=== PATIENT | female | born 2000 | race Caucasian/White ===

== ENCOUNTER 2020-10-06 16:28 | Outpatient (REF) | payer OTHER, MEDICAID, SELFPAY | END 2020-10-06 16:29 | disposition home or self-care (01) | LOC: HO.LAB 16:28 | PROVIDERS: Visit Provider Internal Medicine | DX: Z20.828 Contact with and (suspected) exposure to other viral communicable diseases (principal) | CPT/HCPCS: C9803; U0003 ==

== ENCOUNTER 2023-08-13 10:39 | Emergency (ER) | payer MEDICAID, SELFPAY ==
[2023-08-13 11:02] VITALS: BP 147/74; PULSE 76; RESP 18; TEMP 36.3; O2SAT 99; BMI 33.0
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
[2023-08-13] MEDS: Diphth,Pertus(ACell),Tet Adult 0.5 ML SYRINGE IM (11:19)
== END 2023-08-13 11:39 | disposition home or self-care (01) ==
PROVIDERS: Emergency Provider Emergency Medicine
DX: S40.812A Abrasion of left upper arm, initial encounter (principal); T22.20XA Burn of second degree of shoulder and upper limb, except wrist and hand, unspecified site, initial encounter; T31.0 Burns involving less than 10% of body surface; X15.2XXA Contact with hotplate, initial encounter; Y93.9 Activity, unspecified; Y92.9 Unspecified place or not applicable; Y99.9 Unspecified external cause status; Z23 Encounter for immunization
CPT/HCPCS: 16025; 90471; 90715; 99282; 99284

== ENCOUNTER 2023-11-19 09:20 | Emergency (ER) | payer MEDICAID, SELFPAY ==
[2023-11-19 09:24] VITALS: BP 141/91; PULSE 92; RESP 20; TEMP 36.6; O2SAT 98; BMI 31.0
--- NOTE | 2023-11-19 11:15 | ED_ITS ---
HPI - General Adult General Chief complaint: Upper Respiratory Symptoms Stated complaint: Asthma Time Seen by Provider: 11/19/23 11:19 Source: patient Mode of arrival: ambulatory Limitations: no limitations History of Present Illness HPI narrative: Patient is a 22 year old assigned female at with a history of asthma presenting to the emergency department today with increased wheezing. Patient states that over the last few days she has had increased wheezing / asthma issues. Patient denies any dizziness, lightheadedness, abdominal pain, nausea, vomiting, fever, chills, blurry vision, double vision, loss of vision, chest pain, back pain, night sweats, pain with urination, increased urinary frequency, increased urinary urgency, blood in her urine or stool, syncope or a near syncopal episode, recent trauma or falls, bowel incontinence, bladder incontinence, bowel retention, bladder retention, or any other complaints at this time. Onset (ago): day(s) Severity: mild Severity scale (1-10): 3 Relieving factors: none Exacerbating factors: none Related Data Previous Rx's Medication Instructions Recorded bacitracin 500 unit/gram topical 1 appl topical TID 2 weeks #30 08/13/23 ointment grams prednisone 20 mg tablet 20 mg PO DAILY 12 days #26 tabs 11/19/23 Allergies Allergy/AdvReac Type Severity Reaction Status Date / Time adhesive tape Allergy Rash Verified 11/19/23 09:23 bupropion [From Contrave] Allergy Anaphylaxis Verified 11/19/23 09:23 naltrexone [From Contrave] Allergy Anaphylaxis Verified 11/19/23 09:23 shellfish derived Allergy Anaphylaxis Verified 11/19/23 09:23 Review of Systems Constitutional: Constitutional: Reports no additional constitutional compl aints, Denies chills, Denies fever(s) and Denies night sweats Eyes: Eyes: Reports no additional eye complaints, Denies blurry vision, Denies change in vision, Denies diplopia, Denies eye discharge, Denies loss of vision and Denies eye pain ENT: Denies dizziness Cardiovascular: Cardiovascular: Reports no additional cardiovascular complaints, Denies chest pain, Denies lightheadedness, Denies Loss of Consciousness and Denies dyspnea Respiratory: Respiratory: Reports no additional respiratory complaints, Denies dyspnea and Reports wheezing Gastrointestinal: Gastrointestinal: Reports no additional gastrointestinal complaints, Denies abdominal pain, Denies melena, Denies hematochezia, Denies change in bowel habits and Denies change in stool character Genitourinary: Genitourinary: Denies hematuria, Denies urinary frequency, Denies dysuria, Denies urinary incontinence, Denies urinary hesitancy and Denies urinary urgency Musculoskeletal: Musculoskeletal: Reports no additional musculoskeletal complaints, Denies numbness and Denies tingling Neurologic: Denies dizziness, Denies loss of vision, Denies numbness and Denies tingling Psychiatric: Psychiatric: Reports no additional psychiatric complaints Endocrine: Endocrine: Reports no additional endocrine complaints Hematologic/Lymphatic: Hematologic/Lymphatic: Reports no additional hematologic/lymphatic complaints Allergic/Immunologic: Allergic/Immunologic: Reports no additional allergic/immunologic complaints and Reports wheezing PMFSH Past Medical History Attestation statement: The following information was validated with the patient. Source: old records reviewed and nursing notes reviewed Onset Date is defined in the Problem List Problems that require an onset date and time if occurred within 24 hrs of arrival to the ED Aortic Dissection and Rupture; Neurologic impairment; Cardiopulmonary Arrest; Endotracheal Intubation; Insertion or Replacement of Mechanical Circulatory Assist Device Social History Social History Advance Directives: No Physical Exam ED Vital Signs: Vital Signs - 24 hr 11/19/23 09:24 Temperature 98 F Pulse Rate 92 Respiratory Rate 20 Blood Pressure 141/91 H Pulse Oximetry 98 BMI result Body Mass Index 31.0 Const General: cooperative, no acute distress, alert and awake Nutritional Appearance: well nourished Orientation/consciousness: patient oriented x3 Limitations: no limitations [facility] Head: Yes normal to inspection and Yes atraumatic Ears: hearing grossly normal bilaterally and external ears normal General nose exam: Normal external nose present, no nasal discharge noted and no epistaxis Face and sinus: Yes normal facial exam, No abrasion and No laceration Mouth: Normal oral and palatal mucosa present, no drooling and no muffled voice Eyes General: appearance normal, both eyes and all related structures Periorbital: periorbital findings normal Eyelids: Yes eyelids normal Conjunctivae: conjunctivae normal Pupils: Equal, round and reactive pupils present EOM: EOMs intact bilaterally Neck Neck: Yes normal visual inspection, Yes full ROM and Yes no lymphadenopathy Chest Chest palpation & inspection: normal inspection of the chest Resp Effort & Inspection: normal respiratory effort and able to speak in complete sentences Auscultation: wheezes scattered wheezes GI Inspection: Yes normal to inspection Neuro General: patient oriented x3 and moves all extremities Cranial nerves: Yes Equal, round and reactive pupils present Cognition (Neuro): normal cognition Motor exam (neuro): 5/5 motor strength present throughout Sensory Exam: Normal double simultaneous stimulation for sensation Coordination: [id number] test normal Extrem General: Yes normal to inspection, Yes full ROM and Yes capillary refill normal Psych Appearance: grossly normal Mental Status: mental status grossly normal Affect: normal affect Attitude: cooperative Thought process: Normal thought process present Thought content: Normal thought content present Insight: Good insight present (Psych) Medical Decision Making Medical Decision Making [facility] Narrative: Patient is a 22 year old assigned female at with a history of asthma presenting to the emergency department today with increased wheezing. Patient's physical exam was as noted in the physical exam portion of this note. I explained my physical exam findings to the patient. I answered all questions asked by the patient. I stressed the importance of the patient taking her medication as prescribed. I stressed the importance of the patient following up with her primary care provider. I stressed the importance of the patient returning to the emergency department immediately if her symptoms were to worsen or if she were to develop any dizziness, shortness of breath, difficulty breathing, chest pain, blurry vision, loss of vision, nausea, vomiting, abdominal pain, fever, chills, back pain, or any other complaints. Patient verbalized agreement and understanding with this treatment plan and discharge. Differential Diagnosis Differential Diagnoses: The differential diagnosis associated with the presentation includes Asthma exacerbation Asthma Wheezing Admission/Observation Consideration of admission/observation: Escalation of care including admission/observation considered Patient would have been admitted to the hospital had her clinical presentation warranted hospital admission. Discharge Plan Discharge Clinical Impression: Asthma Patient Disposition: Home, Self-Care Instructions: Asthma (DC) Additional Instructions: Follow up with your primary care provider. Return to the emergency department immediately if your symptoms worsen or if you develop any dizziness, shortness of breath, difficulty breathing, chest pain, blurry vision, loss of vision, nausea, vomiting, abdominal pain, fever, chills, back pain, or any other complaints. Prescriptions: New prednisone 20 mg tablet 20 mg PO DAILY 12 Days Qty: 26 0RF Rx Instructions: Take 3 tablets for 5 days THEN; Take 2 tablets for 4 days THEN; Take 1 tablet for 3 days No Action bacitracin 500 unit/gram ointment 1 appl topical TID 14 Days Qty: 30 0RF Referrals: [facility] [place] Family Medicine [Provider Group] (Call to establish and follow up with a primary care provider. If you already have a primary care provider, please follow up with them.) [facility] [Provider Group] (Call to establish and follow up with a primary care provider. If you already have a primary care provider, please follow up with them.) [facility] [place] Primary [facility] [Provider Group] (Call to establish and follow up with a primary care provider. If you already have a primary care provider, please follow up with them.) Stand Alone Forms: Work/School Release Interventions: ED Discharge Assessment Last Done: 11/19/23 11:23 Discharge Date/Time: 11/19/23 11:24 Print Language: Greenlandic
== END 2023-11-19 11:24 | disposition home or self-care (01) ==
PROVIDERS: Emergency Provider Emergency Medicine
DX: J45.909 Unspecified asthma, uncomplicated (principal)
CPT/HCPCS: 99282; 99283

== ENCOUNTER 2024-10-03 16:02 | Outpatient (REF) | payer MEDICAID, SELFPAY ==
[2024-10-03 17:48] LABS: MANUAL DIFF FLAG NO
[2024-10-03 17:53] LABS: Basophils Absolute Auto 0.1 X10*3/uL (0.0-0.2); Basophils Percent Auto 0.5 % (0-2); Eosinophils Absolute Auto 0.4 X10*3/uL (0.0-0.4); Eosinophils Percent Auto 3.9 % (0-4); Hematocrit 40.8 % (37.0-47.0); Hemoglobin 13.3 g/dl (12.0-16.0); Imm Gran Abs Auto 0.03 X10*3/uL (0.00-0.03); Imm Gran Pct Auto 0.3 % (0.0-0.4); Lymphocytes Absolute Auto 3.3 X10*3/uL (1.2-4.9); Mean Corpuscular HGB Conc 32.6 g/dl (31.0-35.0); Mean Corpuscular Hemoglobin 29.4 pg (27.0-33.0); Mean Corpuscular Volume 90.3 fL (80.0-98.0); Mean Platelet Volume 9.7 fL (9.4-12.3); Monocytes Absolute Auto 0.5 X10*3/uL (0.1-1.2); Monocytes Percent Auto 5.1 % (2-11); Neutrophils Absolute Auto 5.4 x10*3/uL (2.0-8.3); Neutrophils Percent Auto 56.2 % (45-73); Platelet Count 346 X10*3/uL (160-400); Red Blood Count 4.52 X10*6/uL (4.20-5.50); White Blood Count 9.7 X10*3/uL (4.8-10.8)
[2024-10-03 18:19] LABS: Alanine Aminotransferase 14 U/L (0-31); Albumin Level 4.4 g/dL (3.5-5.0); Alkaline Phosphatase 70 U/L (39-117); Anion Gap 11 (12-20); Aspartate Amino Transferase 18 U/L (5-31); Bilirubin Total 1.2 mg/dL (0.0-1.0); Blood Urea Nitrogen 8 mg/dL (9-16); Calcium 9.8 mg/dL (8.4-10.2); Carbon Dioxide 27 mmol/L (22-29); Chloride 107 mmol/L (96-108); Estimated Glomerular Filt Rate > 60; Glucose Random 84 mg/dL (60-115); Potassium 4.4 mmol/L (3.3-5.1); Sodium 141 mmol/L (135-145); Total Protein 7.8 g/dL (6.5-8.0)
[2024-10-03 18:25] LABS: TSH reflex Free T4 0.98 uIU/mL (0.32-4.0)
[2024-10-04 07:35] LABS: Estimated Average Glucose 105 mg/dL; Hemoglobin A1C 117.7604 umol/L; Hemoglobin A1c % 5.3 % (<6.0); Total Hemoglobin (HGBA1C) 3385.7884 umol/L
== END 2024-10-03 16:03 | disposition home or self-care (01) ==
LOC: HO.HHCL 16:02
PROVIDERS: Visit Provider Nurse Practitioner Family
DX: Z00.00 Encounter for general adult medical examination without abnormal findings (principal); R53.83 Other fatigue
CPT/HCPCS: 36415; 80053; 83036; 84443; 85025

== ENCOUNTER 2024-11-21 18:40 | Emergency (ER) | payer MEDICAID, SELFPAY ==
--- NOTE | ~2024-11-21 | XR_ITS ---
CLINICAL HISTORY: fall onto pavement, tenderness 4 view right knee Comparison: None Findings: Bones intact. No dislocations. No significant arthritic change or erosions. No joint effusion. No radiopaque foreign body. IMPRESSION: 1. No acute findings. This document has been electronically signed by: Vick Daugherty MD on 11/21/2024 20:08:29
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
[2024-11-21 19:29] VITALS: BP 132/85; PULSE 66; RESP 16; TEMP 36.3; O2SAT 98; BMI 29.2
[2024-11-21 20:22] VITALS: BP 132/85; PULSE 66; RESP 16; TEMP 36.3; O2SAT 98
== END 2024-11-21 20:23 | disposition home or self-care (01) ==
PROVIDERS: Emergency Provider Emergency Medicine Emergency Medical Services; PCP Nurse Practitioner Family
DX: S80.01XA Contusion of right knee, initial encounter (principal); M25.561 Pain in right knee; W00.0XXA Fall on same level due to ice and snow, initial encounter; Y93.89 Activity, other specified; Y92.89 Other specified places as the place of occurrence of the external cause; Y99.8 Other external cause status
CPT/HCPCS: 73564; 99282; 99283

== ENCOUNTER → 2024-11-21 19:29 | Outpatient (BNV) | payer MEDICAID, SELFPAY | PROVIDERS: Emergency Provider Emergency Medicine Emergency Medical Services; PCP Nurse Practitioner Family; Visit Provider Radiology Diagnostic Radiology | DX: M25.561 Pain in right knee (principal) | CPT/HCPCS: 73564 ==

== ENCOUNTER 2024-12-26 07:37 | Outpatient (REF) | payer MEDICAID, SELFPAY ==
--- OUTSIDE RECORDS SUMMARY | 2024-12-27 07:40 | XMS_ITS | Encounter Summary ---
Author Organization [employer] Address [address] [facility] 7 [place] [address] Care Team Providers Care Graphics Production Specialist Name Role Phone Nimisha Harley PANFILO Primary Care Provider [phone] Reason for Visit * Reason Onset Date Comments January recall 12/04/2024 Encounter Details Date Type Department Care Team ([facility] st Contact Info) Description 12/04/2024 Telephone [facility] [address] [place] [address] Renato Webster [place] January recall Social History Tobacco Use Types Packs/Day Years Used Date Smoking Tobacco: Former Cigarettes Q uit: 11/26/2017 Passive Smoke Exposure: Past Smokeless Tobacco: Never Alcohol Use Standard Drinks/Week Comments Yes 0 (1 standard drink = 0.6 oz pur e alcohol) socially Housing Stability Answer Date Recorded What is your housing situation today? I have david phan 10/03/[address] you li ve. Do you have problems with any of the following? None of the above 10/03/2024 Food Insecurity Answer Date Recorded Within the past 12 months, y ou worried that your food would run out before you got money to buy more: Never True 10/03/2024 Within the past 12 months,th e food you bought just didn't last and you didn't have enough money to get more: Never True 03/2024 Transportation Answer Date Recorded In the past 12 months, has l ack of transportation kept you from medical appts, meetings, work or from getting things needed for daily living? No 10/03/2024 Utilities Answer Date Recorded In the past 12 months, has t he electric, gas, oil or water company threatened to shut off services in your home? No 10/03/2024 Internet Access Answer Date Recorded Internet Access Q1 Yes 10/03/2024 Internet Access Q2 Not on file 10/03/2024 Comments Unknown Sex and Gender Information Value Date Recorded Sex Assigned at Female 12/13/2023 9:54 AM EST Legal Sex Female 9:43 AM EST Gender Identity Female 12/13/2023 9:54 AM EST Sexual Orientation Straight 12/13/2023 9: 54 AM EST documented as of this encounter Miscellaneous Notes * Telephone Encounter - Renato Webster [place] - 12/04/2024 2:42 PM EST T/C to pt to schedule a recall f/u nasal symptoms. PT agreed to come in on 02/03/25 at 1:45pm. documented in this encounter Plan of Treatment Upcoming Encounters Date Type Department Care Team (Late st Contact Info) Description 02/03/2025 1:45 PM EDT Office Visit [facility] [address] [place] [address] Nimisha Harley NP [address] [place] [address] documented as of this encounter Visit Diagnoses Not on filedocumented in this encounter Care Teams Graphics Production Specialist Relationship Specialty Start Date End Date Nimisha Harley NP [address] [place] [address] PCP - General Family Medicine 11/03/24 documented as of this encounter
--- OUTSIDE RECORDS SUMMARY | 2024-12-27 07:40 | XMS_ITS | Referral Summary ---
Author Organization [facility] Address [address] [place] [address] Care Team Providers Care Manager Salt Name Role Phone Jyoti Gaspar Primary Care Provider Unavailabl e Allergies Active Allergy Reactions Criticality Noted Date Comments Shellfish Containing Products Rash 2021 Social History Tobacco Use Types Packs/Day Years Used Date Smoking Tobacco: Never Assessed Comments Unknown Sex and Gender Information Value Date Recorded Sex Assigned at Not on file Legal Sex Female 10:44 AM EDT Gender Identity Not on file Sexual Orientation Not on file Plan of Treatment Not on file Insurance [place] [employer] on file Care Teams Manager Salt Relationship Specialty Start Date End Date Jyoti Gaspar PCP - General Internal Medicine 07/31/22
--- OUTSIDE RECORDS SUMMARY | 2024-12-27 07:40 | XMS_ITS | Clinical Summary ---
Author Organization [facility] Address [address] [place] [address] Care Team Providers Care Mat Linker Name Role Phone Jyoti Gaspar Primary Care [...] Orientation Not on file Plan of Treatment Health Maintenance Due Date Last Done Comments HIV Screening 1998 Hepatitis C Screening 1998 Pap Smear 1998 Varicella Vaccines (1 of 2 - 13+ 2-dose series) 2011 HPV Vaccines (1 - 3-dose series) 2013 Chlamydia Screening 2014 Hepatitis B Vaccines (2 of 3 - 3-dose series) 08/15/2016 07/18/2016 Pneumococcal Vaccine: Pediat sadie (0-5 Years) and At-Risk Patients (6-50 Years) (1 of 2 - PCV) 2017 COVID-19 Vaccine (2023-2 5 season) 2024 11/01/2021, 03/21/2021, 02/22/2021 Influenza Vaccine (#1) 2024 8, 09/05/2018, 07/19/2017, Additional history exists Alcohol/Substance Use Screening 10/29/2024 Depression Screening and Follow-Up 10/29/2024 Social Drivers of Health [place] ual Screening 10/29/2024 DTaP,Tdap,and Td Vaccines (2 - Td or Tdap) 09/05/2028 09/05/2018 RSV Vaccine (60+ years old a nd patients) (1 - 1-dose 75+ series) 2073 Insurance [place] [employer] on file Care Teams Mat Linker Relationship Specialty Start Date End Date Jyoti Gaspar PCP - General Internal Medicine 07/31/22
--- OUTSIDE RECORDS SUMMARY | 2024-12-27 07:40 | XMS_ITS | Encounter Summary ---
Author Organization [facility] Address [address] [place] [id number] Phone Care Team Providers Care Marksmanship Instructor Name Role Phone Tangela Moreno MD Primary Care Provider Unavailabl e Encounter Details Date Type Department Care Team ([facility] Contact Info) Description 03/17/2018 Conversion Encounter [facility] [address] [address] Yeimi Lester MD [address] [place] [address] Social History Tobacco Use Types Packs/Day Years Used Date Smoking Tobacco: Never Assessed Comments Unknown Sex and Gender Information Value Date Recorded Sex Assigned at Not on file Legal Sex Female 6:10 PM EDT Gender Identity Not on file Sexual Orientation Not on file documented as of this encounter Plan of Treatment Not on file documented as of this encounter Visit Diagnoses Not on filedocumented in this encounter Care Teams Marksmanship Instructor Relationship Specialty Start Date End Date Tangela Moreno MD PCP - General 04/15/20 documented as of this encounter
--- OUTSIDE RECORDS SUMMARY | 2024-12-27 07:40 | XMS_ITS | Clinical Summary ---
Author Organization [employer] Address [address] [facility] 7[address] [place] [address] Care Team Providers Care Bulbs Farmworker Name Role Phone Nimisha Harley PANFILO Primary Care Provider [phone] Allergies Active Allergy Reactions Criticality Noted Date Comments Food 11/26/2019 shellfish Iodinated Contrast Media 12/13/2023 Shellfish Allergy Rash Low 08/15/2022 Medications Nexplanon 68 MG contraceptive implant Inject 68 mg under the skin. 3 Active albuterol (Ventolin HFA) 108 (90 Base) MCG/ACT inhaler Inhale. 0 Active budesonide-formot yang (Symbicort) 80-4.5 MCG/ACT inhalerIndication s:Moderate persistent asthma, unspecified whether complicated Inhale 1 puff in the morning and at bedtime. Rinse mouth with water after use to reduce aftertaste and incidence of candidiasis. Do not swallow. 1 each 1 4 Active Active Problems Problem Noted Date Diagnosed Date Dietary counseling 10/04/2024 Assessment & Plan (10/04/2024 1:15 PM EST): Encouraged minimizing processed foods and increasing whole foods particularly vegetables Exercise counseling 10/04/2024 Assessment & Plan (10/04/2024 1:15 PM EST): Encouraged daily movement, working up to 30 minutes daily Chronic nasal congestion 10/03/2024 Assessment & Plan (11/03/2024 5:58 PM EST): No response from abx course, Referral to ent and referral to allergy Initiate topical nasal steroid Assessment & Plan (10/04/2024 1:14 PM EST): Constant congestion this winter, will treat with abx x1 Return to clinic in 1 month Healthcare maintenance 10/03/2024 Assessment & Plan (10/04/2024 1:15 PM EST): Labs as ordered below Will schedule pap Anticipatory guidance reviewed Other fatigue 10/03/2024 Assessment & Plan (10/04/2024 1:14 PM EST): Goal to discuss cutting down monster beverages with therapist, Eat one meal per day Acute bacterial rhinosinusitis 10/03/2024 Assessment & Plan (10/04/2024 1:14 PM EST): Will treat Dental abscess 01/16/2024 Impacted teeth 01/16/2024 Dental caries into pulp 01/09/2024 Allergic rhinitis 12/13/2023 Asthma 12/13/2023 Assessment & Plan (10/04/2024 1:15 PM EST): Add pulmicort, monitor frequency of albuterol needed Follow up in 1 month Bipolar 1 disorder 12/13/2023 Class 1 obesity 12/13/2023 Hair loss 12/13/2023 History of gestational diabetes 12/13/2023 Hypermobility of joint 12/13/2023 PTSD (post-traumatic stress disorder) 12/13/2023 Encounters Date Type Department Care Team Description 12/04/2024 Telephone [facility] [address] [place] [address] Renato Webster [place] Lin recall 11/26/2024 6:00 PM EST Office Visit [facility] [address] [place] [address] Oliverio Johnson MD Right anterior knee pain (Primary Dx) 11/26/2024 Travel 11/26/2024 Telephone [facility] [address] [place] [address] Nimisha Harley NP Nurse Triage 11/21/2024 Orders Only [facility] External Provider, [facility] 11/03/2024 2:30 PM EST Office Visit [address] [address] Nimisha Harley NP Chronic nasal congestion (Primary Dx) 10/30/[address] [address] Shayy Aguiar [place] Chart Prep 10/27/2024 Travel 10/03/2024 2:45 PM EST Office Visit [address] [address] Nimisha Harley NP Healthcare maintenance (Primary Dx); Other fatigue; Chronic nasal congestion; Moderate persistent asthma, unspecified whether complicated; Acute bacterial rhinosinusitis; Dietary counseling; Exercise counseling 09/30/[address] [address] Shayy Aguiar [place] Chart Prep from Last 3 Months Immunizations Name Administration Dates Next Due HPV, Quadrivalent 11/08/2011,11/07/2010,09/07/20 10 Hep B, Adolescent or Pediatric 07/09/2015,2013,01/08/2004 Hib (PRP-T) 02/28/2000, 9,03/30/1999,02/01 IPV 01/08/2004, 0,03/30/1999,02/01 Influenza injectable quadriv alent IIV4 with preservative 07/19/2017,08/04/2015,07/26/2013,07/29,09/07/2010,10/08/2009 Influenza injectable quadriv alent preservative free 07/18/2016,07/25/2014 Influenza live intranasal qu adrivalent LIAV4 09/04/2008 Influenza, IIV3, injectable 11/06/2022,1 11/05/2017,07/19/2017,07/18 MMR 11/10/2018,01/06/2003,12/05/1999 Meningococcal MCV4P ACYW-135 04/09/2015,09/07/20 10 Rotavirus Pentavalent 03/30/1999,02/01/1999 Tdap 10/18/2022,09/05/2018,09/07/2010 Family History Medical History Relation Name Comments Diabetes Father Hypertension Father Breast cancer Maternal Grandmother Diabetes Mother Hypertension Mother Relation Name Status Comments Father Maternal Grandmother Mother Social History Tobacco Use Types Packs/Day Years Used Date Smoking Tobacco: Former Cigarettes Q uit: 11/26/2017 Passive Smoke Exposure: Past Smokeless Tobacco: Never Tobacco Cessation:Counseling Given: Not Answered Alcohol Use Standard Drinks/Week Comments Yes 0 [...] Orientation Straight 12/13/2023 9: 54 AM EST Last Filed Vital Signs Vital Sign Reading Time Taken Comments Blood Pressure 126/79 11/26/2024 5:34 PM EST Pulse 93 11/26/2024 5:34 PM EST Temperature 36.8 ??C (98.2 ??F) 11/26/2024 5:34 PM ES T Respiratory Rate 20 11/26/2024 5:34 PM EST Oxygen Saturation 99% 11/26/2024 5:34 PM EST Inhaled Oxygen Concentration - - Weight 77.6 kg (171 lb) 11/26/2024 5:34 PM EST Height 160 cm (5' 3 ) 11/26/2024 5:34 PM EST Body Mass Index 30.29 11/26/2024 5:34 PM EST Plan of Treatment Upcoming Encounters Date Type Department Care Team (Late st Contact Info) Description 02/03/2025 1:45 PM EDT Office Visit [facility] [address] [place] [address] Nimisha Harley, PANFILO [address] [place] [address] Health Maintenance Due Date Last Done Comments Dental Oral Exam 1998 Dental Prophylaxis 1998 Depression Screening 1998 HIV Screening 1998 Family Planning (PISQ) 2013 Hepatitis C Screening 2016 Pneumococcal Vaccine: Pediatrics (0 to 5 Years) and At-Risk Patients (6 to 49) Years) (1 of 2 - PCV) 2017 Pap Smear 2019 COVID-19 Vaccine ( season) 2024 11/01/2021, 03/21/2021, 02/22/2021 Influenza Vaccine (#1) 2024 , 09/05/2018, 09/05/2018, Additional history exists Dental X-Ray: Bitewings 12/14/2024 12/13/2023 Alcohol/Substance Use Screening 10/03/2025 10/03/2024 SDOH Screening 10/03/2025 10/03/2024 Tobacco Screening 11/26/2025 11/26/2024 Dental X-Ray: Full Mouth 01/16/2027 01/16/2024 DTaP/Tdap/Td Vaccines (10 - Td or Tdap) 08/13/2033 08/13/2023, 10/18/2022, 09/05/2018, Additional history exists Zoster Vaccines (1 of 2) 2048 RSV Patients and Patients Aged 60 years or older (1 - 1-dose 75+ series) 2073 Rotavirus Vaccines Aged Out 03/30/1999, 02/01/1999 No longer eligible based on patient's age to complete this topic HIB Vaccines Completed 02/28/2000, 11/1998, 03/30/1999, Additional history exists IPV Vaccines Completed 01/08/2004, 04/2000, 03/30/1999, Additional history exists HPV Vaccines Completed 11/08/2011, 10/29, 09/07/2010 Meningococcal Vaccine Completed 04/09/2015, 010 Hepatitis B Vaccines Completed 07/18/2016, 07/09/2015, 08/17/2014, Additional history exists Hepatitis A Vaccines Aged Out No long er eligible based on patient's age to complete this topic RSV under 20 months Aged Out No longe r eligible based on patient's age to complete this topic Procedures Procedure Name Priority Date/Time Associated Diagnosis Comments XR KNEE 4+ VIEWS RIGHT Routine 8:08 PM EST HEMOGLOBIN A1C Routine 10/03/2024 4:07 PM EST Healthcare maintenance COMPREHENSIVE METABOLIC PANEL Routine 10/03/2024 4:07 PM EST Healthcare maintenance TSH W/REFLEX TO FT4 Routine 10/03/2024 4 :07 PM EST Healthcare maintenance Other fatigue CBC WITH AUTO DIFFERENTIAL Routine 10/03/2024 4:07 PM EST Healthcare maintenance Other fatigue PANORAMIC RADIOGRAPHIC IMAGE Routine 01/16/2024 11:30 AM EDT BITEWING - SINGLE RADIOGRAPHIC IMAGE Routine 12/13/2023 9:45 AM EST Dental caries from Last 3 Months or Most Recently Relevant to Health Maintenance Results * XR Knee 4+ Views Right (11/21/2024 8:08 PM EST) Anatomical Region Laterality Modality Lower Extremities, Knee Right [facility] 11/21/2024 8:08 PM EST Narrative 11/21/2024 8:10 PM EST ? [facility] ?[address] ?[place] [address] ?XRay Report ? Signed ? Patient: Hopkins,Kacy ?MR#: [id number] ?? [id number] ? : 2000 ?Acct:[id number] ? Age/Sex: 23 / F ?ADM Date: 11/21/24 ? Loc: HO.ED ? Attending Dr: ? Ordering Physician: Alise Tariq NP ?? Date of Service: 11/21/24 ?? Procedure(s): XR knee RT 4V ?? Accession Number(s): [id number] ? cc: Nimisha Harley DIRECTOR LONG TERM CARE; Alise Tariq NP ? CLINICAL HISTORY: fall onto pavement, tenderness ? 4 view right knee ? Comparison: None ? Findings: ?? Bones intact. No dislocations. ?? No significant arthritic change or erosions. ?? No joint effusion. ?? No radiopaque foreign body. ? IMPRESSION: ?? 1. No acute findings. ? This document has been electronically signed by: Vick Daugherty MD on ?? 11/21/2024 20:08:29 ? Dictated By: ?Vick Daugherty MD ? Signed By: ?<Electronically signed by Vick Daugherty MD in OV> ?11/21/242008 ? DD/ 07 ? TD/TT: 11/21/242007 ? Software Testing Specialist: ? Procedure Note Lottie, Image - 11/21/2024 [place] [id number] XRay Report Signed Patient: Les Quarles#: [id number] : 2000Acct:[id number] Age/Sex: 23 / FADM Date: 11/21/24 Loc: HO.ED Attending Dr: Ordering Physician: Alise Tariq NP Date of Service: 11/21/24 Procedure(s): XR knee RT 4V Accession Number(s): [id number] cc: Nimisha Harley DIRECTOR LONG TERM CARE; Alise Tariq NP CLINICAL HISTORY: fall onto pavement, tenderness 4 view right knee Comparison: None Findings: Bones intact. No dislocations. No significant arthritic change or erosions. No joint effusion. No radiopaque foreign body. IMPRESSION: 1. No acute findings. This document has been electronically signed by: Vick Daugherty MD on 11/21/2024 20:08:29 Dictated By: Vick Daugherty MD Signed By: <Electronically signed by Vick Daugherty MD in OV> 11/21/242008 DD/ 07 TD/TT: 11/21/242007 Software Testing Specialist: us [facility] External Provider IMG XR PROCEDURES Edited Result - Final * TSH W/Reflex to FT4 (10/03/2024 4:07 PM EST) TSH reflex Free T4 0.98 0.32 - 4.0 uIU/mL [facility] Blood Venous blood specimen / Unknown 10/03/2024 4:07 PM EST 10/03/2024 5:39 PM EST Nimisha Harley DIRECTOR LONG TERM CARE LAB BLOOD ORDERABLES Final Resul t [facility] [address] [place] [phone] * CBC auto differential (10/03/2024 4:07 PM EST) White Blood Count 9.7 4.8 - 10.8 X10*3/uL [facility] Red Blood Count 4.52 4.20 - 5.50 X10*6/uL [facility] Hemoglobin 13.3 12.0 - 16.0 g/dl [facility] Hematocrit 40.8 37.0 - 47.0 % [facility] Mean Corpuscular Volume 90.3 80.0 - 98.0 fL [facility] Mean Corpuscular Hemoglobin 29.4 27.0 - 33.0 pg [facility] Mean Corpuscular HGB Conc 32.6 31.0 - 35.0 g/dl [facility] Red Cell Distribution Width 13.0 11.0 - 16.0 % [facility] Platelet Count 346 160 - 400 X10*3/uL [facility] Mean Platelet Volume 9.7 9.4 - 12.3 fL [facility] Neutrophils Percent Auto 56.2 45 - 73 % [facility] Imm Gran Pct Auto 0.3 0.0 - 0.4 % [facility] Lymphocytes Percent Auto 34.0 20 - 40 % [facility] Monocytes Percent Auto 5.1 2 - 11 % [facility] Eosinophils Percent Auto 3.9 0 - 4 % [facility] Basophils Percent Auto 0.5 0 - 2 % [facility] NRBC Pct Auto 0.0 0.0 - 0.2 /100WBC [facility] Neutrophils Absolute Auto 5.4 2.0 - 8.3 x10*3/uL [facility] Imm Gran Abs Auto 0.03 0.00 - 0.03 X10*3/uL [facility] Lymphocytes Absolute Auto 3.3 1.2 - 4.9 X10*3/uL [facility] Monocytes Absolute Auto 0.5 0.1 - 1.2 X10*3/uL [facility] Eosinophils Absolute Auto 0.4 0.0 - 0.4 X10*3/uL [facility] Basophils Absolute Auto 0.1 0.0 - 0.2 X10*3/uL [facility] NRBC Abs Auto 0.000 0.0 - 0.012 X10*3/uL [facility] Blood Venous blood specimen / Unknown 10/03/2024 4:07 PM EST 10/03/2024 5:39 PM EST Nimisha Harley NP LAB BLOOD ORDERABLES Final Resul t [facility] [address] [place] [address] [phone] * Hemoglobin A1c (10/03/2024 4:07 PM EST) Hemoglobin A1c 5.3 <6.0 % [facility] Comment:Hemoglobin A1C Refer ence Range Adults: 4.8 - 6.0 % Non diabetic: < 6.0 % Goal: < 7.0 %Additional Action Suggested: > 8.0 %Note: Hemoglobin A1c results are invalid for patients with abnormal amounts of HbF. Blood transfusions may impact the HbA1c concentration in the patient sample. Estimated Average Glucose 105 mg/dL [facility] Comment:eAG = Estimated ave rage glucose which is %A1C expressed asaverage glucose, using the formula of the C2S-WkidysfNwrytvi Glucose study (ADAG), Diabetes Care, Vol.31,#8,May. 2007 Blood Venous blood specimen / Unknown 10/03/2024 4:07 PM EST 10/03/2024 5:39 PM EST us Nimisha Harley NP LAB BLOOD ORDERABLES Final Resul t [facility] [address] [place] [address] [phone] * (ABNORMAL) Comprehensive Metabolic Panel (10/03/2024 4:07 PM EST) Sodium 141 135 - 145 mmol/L [facility] Potassium 4.4 3.3 - 5.1 mmol/L [facility] Chloride 107 96 - 108 mmol/L [facility] Carbon Dioxide 27 22 - 29 mmol/L [facility] Anion Gap 11(L) 12 - 20 [facility] Urea Nitrogen (BUN) 8(L) 9 - 16 mg/dL [facility] Creatinine, Serum 0.71 0.5 - 1.4 mg/dL [facility] Estimated Glomerular Filt Rate >60 [facility] Comment:Chronic Kidney Disea se: Estimated GFR < 60 mL/min/[id number] Kidney Disease: Estimated GFR < 15 mL/min/1.73m2 Glucose 84 60 - 115 mg/dL [facility] Calcium 9.8 8.4 - 10.2 mg/dL [facility] Bilirubin, Total 1.2(H) 0.0 - 1.0 mg/dL [facility] Aspartate Amino Transferase 18 5 - 31 U/L [facility] Alanine Aminotransferase 14 0 - 31 U/L [facility] Total Protein 7.8 6.5 - 8.0 g/dL [facility] Albumin Level 4.4 3.5 - 5.0 g/dL [facility] Alkaline Phosphatase 70 39 - 117 U/L [facility] Blood Venous blood specimen / Unknown 10/03/2024 4:07 PM EST 10/03/2024 5:39 PM EST us Nimisha Harley NP LAB BLOOD ORDERABLES Final Resul t [facility] [address] [place] [address] [phone] from Last 3 Months Insurance [facility] C3 DENTAL-[facility] MEDICAID STAND ADULT Care Teams Bulbs Farmworker Relationship Specialty Start Date End Date Nimisha Harley NP [address] [place] [address] PCP - General Family Medicine 11/03/24
== END 2024-12-26 07:38 | disposition home or self-care (01) ==
LOC: HO.HOSX 07:37
PROVIDERS: Visit Provider Physician Assistant
DX: Z13.89 Encounter for screening for other disorder (principal)

== ENCOUNTER 2025-01-13 19:11 | Emergency (ER) | payer MEDICAID, SELFPAY ==
--- NOTE | ~2025-01-13 | XR_ITS ---
CLINICAL HISTORY: pain 1 view chest x-ray Comparison: None Findings: No consolidation or effusion. Normal size heart. No acute fracture. IMPRESSION: 1. No acute findings. This document has been electronically signed by: Yael Mc MD on 01/13/2025 20:40:12
--- NOTE | 2025-01-13 19:18 | ECG_ITS ---
Test Reason : CP Blood Pressure : */* mmHG Vent. Rate : 66 BPM Atrial Rate : 66 BPM P-R Int : 132 ms QRS Dur : 72 ms QT Int : 400 ms P-R-T Axes : 38 45 44 degrees QTcB Int : 419 ms Normal sinus rhythm Cannot rule out Anterior infarct , age undetermined Abnormal ECG No previous ECGs available Referred By: Generic ED Physician Electronically Signed By: Martin Perez
[2025-01-13 19:39] VITALS: BP 115/67; PULSE 64; RESP 18; TEMP 36.7; O2SAT 100; BMI 29.2
--- NOTE | 2025-01-13 19:48 | ED.CHESTPAIN ---
HPI - Chest Pain General Chief Complaint: Chest Pain Stated Complaint: chest pain/body heavy Time Seen by Provider: 01/13/25 22:03 Source: patient Mode of arrival: ambulatory Limitations: no limitations History of Present Illness ED Provider: Dr. Bri Cobb HPI narrative: Patient comes to the emergency room complaining of chest pain with deep inspirations. Patient states that earlier today she had an episode where she was having some chest pain, numbness tingling throughout the whole body head to toe. At this time, patient states that she feels better, just feels some chest discomfort, but no pain or significant discomfort. Patient states that she does have asthma but has not had any asthma exacerbations Related Data Previous Rx's ?Medication ?Instructions ?Recorded bacitracin 500 unit/gram topical 1 appl topical TID 2 weeks #30 08/13/23 ointment grams prednisone 20 mg tablet 20 mg PO DAILY 12 days #26 tabs 11/19/23 Allergies Allergy/AdvReac Type Severity Reaction Status Date / Time adhesive tape Allergy Rash Verified 01/13/25 19:40 bupropion [From Contrave] Allergy Anaphylaxis Verified 01/13/25 19:40 naltrexone [From Contrave] Allergy Anaphylaxis Verified 01/13/25 19:40 shellfish derived Allergy Anaphylaxis Verified 01/13/25 19:40 Review of Systems Review of Systems: Constitutional : No Weight loss, No Fever, No Chills, No Night Sweats, No Fatigue, No Malaise ENT/Mouth : No Hearing loss, No Ear Pain, No Nasal Congestion, No Sinus Pain, No Hoarseness, No sore throat, No Rhinorrhea, No Swallowing Difficulty Eyes: No Eye Pain, No Swelling, No Redness, No Foreign Body, No Discharge, No Vision Changes Cardiovascular : chest pressure worse with inspiration, nearly resolved by now, no palpitations Respiratory : No Cough, No Sputum, No Wheezing, No Smoke Exposure, No Dyspnea Gastrointestinal : No Nausea, No Vomiting, No Diarrhea, No Constipation, No abdominal Pain, No Hematochezia, No Melena Genitourinary : no irregular bleeding, No Dysuria, No Urinary Frequency, No Hematuria, No Urinary Incontinence, No Urgency, No Flank Pain, No Urinary Flow Changes, No Hesitancy Musculoskeletal : No joint pain, No Myalgias, No Joint Swelling Skin : No Skin Lesions, No rash Neuro : No Weakness, No Numbness, complaining of 1 episode of whole body paresthesias, no tonic-clonic events, No Loss of Consciousness, No Dizziness, No Headache Psych : No Anxiety/Panic, No Depression, No SI/HI/AH/VH, No Social Issues, Heme/Lymph: No Bruising, No Bleeding,No Lymphadenopathy Endocrine : No Polyuria, No Polydipsia, No Temperature Intolerance [facility] Social History Social History Do you have a plan to hurt others: No Plan Physical Exam Vital Signs: Vital Signs: Last Vital Signs Temp 98.0 F 01/13/25 19:39 Pulse 64 01/13/25 19:39 Resp 18 01/13/25 19:39 BP 115/67 01/13/25 19:39 Pulse Ox 100 01/13/25 19:39 O2 Del Method Room Air 01/13/25 19:39 BMI result Body Mass Index 29.2 Const: Other: Appearance: Alert. Oriented X3. No acute distress. Eyes: Pupils equal, round and reactive to light. ENT: Pharynx normal. Neck: Normal inspection. Neck supple. No lymph nodes noted. No crepitus CVS: Normal heart rate and rhythm. Pulses normal. Normal S1 and S2 Respiratory: No respiratory distress. Breath sounds normal. No Wheezing. No rales Abdomen: Soft and nontender. No rigidity. No distention. Skin: Skin warm and dry. Normal skin color. Normal skin turgor. Extremities: No lower extremity edema. No Lacerations. No Rash Neuro: Oriented X 3. No motor deficit. No sensory deficit. Moving all extremities. No slurred speech. CN 2 through 12 grossly intact Psych: calm, cooperative, normal affect Course Course Course Narrative: This is a rapid medical exam performed by Mariposa Morgan PA-C. The patient is a 24-year-old female with a history of anxiety who presents with chest pain. Pain described as heaviness, the becomes severe at times. It has been intermittent since this evening. Denies recent cough cold symptoms, upper abdominal pain, nausea, vomiting. Denies new psychosocial stressors. We will be screening basic labs, trop, EKG and chest x-ray. The patient was stable and can return to the waiting room pending her full medical assessment. Medical Decision Making Medical Decision Making MDM Narrative: my interpretation of EKG: Normal sinus rhythm, heart rate 66, no ST segment depression or elevation, no T-wave inversion, QTC 419 my interpretation of labs: White blood cell count 12.4, chronic for the patient, normal hemoglobin and hematocrit, normal platelets, normal chemistry, normal troponin, negative hCG chest x-ray: No consolidation or effusion I discussed with the patient that she likely has pleurisy. At this time, patient has no significant pain or pressure, she is states that she feels different. Patient does have history of anxiety, it when she described episode of whole body numbness and tingling, patient likely had a panic attack. Differential Diagnosis Differential Diagnoses: The differential diagnosis associated with the presentation includes Lab Data MDM Lab Attestation statement: I reviewed the patient's lab results. 01/13/25 19:58 01/13/25 19:58 Labs: Lab Results 01/13/25 Range/Units 19:58 WBC 12.4 H (4.8-10.8) X10*3/uL RBC 4.28 (4.20-5.50) X10*6/uL Hgb 12.8 (12.0-16.0) g/dl Hct 39.2 (37.0-47.0) % MCV 91.6 (80.0-98.0) fL MCH 29.9 (27.0-33.0) pg MCHC 32.7 (31.0-35.0) g/dl RDW 12.9 (11.0-16.0) % Plt Count 354 (160-400) X10*3/uL MPV 9.4 (9.4-12.3) fL Immature Gran % (Auto) 0.2 (0.0-0.4) % Neut % (Auto) 48.8 (45-73) % Lymph % (Auto) 40.5 H (20-40) % [place] % (Auto) 4.8 (2-11) % Eos % (Auto) 5.3 H (0-4) % Baso % (Auto) 0.4 (0-2) % Lymph # (Auto) 5.0 H (1.2-4.9) X10*3/uL [place] # (Auto) 0.6 (0.1-1.2) X10*3/uL Eos # (Auto) 0.7 H (0.0-0.4) X10*3/uL Baso # (Auto) 0.1 (0.0-0.2) X10*3/uL Abs Immat Gran (auto) 0.03 (0.00-0.03) X10*3/uL Absolute Neuts (auto) 6.0 (2.0-8.3) x10*3/uL Absolute Nucleated RBC 0.000 (0.0-0.012) X10*3/uL Nucleated RBC % (auto) 0.0 (0.0-0.2) /100WBC Smear Tech's Comments VERIFIED Sodium 143 (135-145) mmol/L Potassium 4.6 (3.3-5.1) mmol/L Chloride 109 H (96-108) mmol/L Carbon Dioxide 27 (22-29) mmol/L Anion Gap 12 (12-20) BUN 9 (9-16) mg/dL Creatinine 0.78 (0.5-1.4) mg/dL Estim Creat Clear Calc 105.8 Estimated GFR > 60 Random Glucose 89 (60-115) mg/dL Calcium 9.6 (8.4-10.2) mg/dL Total Bilirubin 0.6 (0.0-1.0) mg/dL AST 16 (5-31) U/L ALT 16 (0-31) U/L Alkaline Phosphatase 73 (39-117) U/L Troponin I High Sens < 2.7 (<3.5-17.0) ng/L Total Protein 7.9 (6.5-8.0) g/dL Albumin 4.3 (3.5-5.0) g/dL Lipase 26 (8-78) U/L Beta HCG, Quant < 2 mIU/mL Independent Interpretation I performed an independent interpretation of an: Plain X-Ray Radiology Impression Discussion of test interpretation with radiology: I have reviewed the radiologist's reading. Radiologist Impression: No consolidation or effusion. Normal size heart. No acute fracture. IMPRESSION: 1. No acute findings Discharge Plan Discharge Clinical Impression: Pleurisy Patient Disposition: Home, Self-Care Instructions: Pleurisy (ED) Additional Instructions: Please follow-up with your primary care physician tomorrow. If you have any worsening or new symptoms, please return to the emergency room or call 911 Prescriptions: No Action bacitracin 500 unit/gram ointment 1 appl topical TID 14 Days Qty: 30 0RF prednisone 20 mg tablet 20 mg PO DAILY 12 Days Qty: 26 0RF Rx Instructions: Take 3 tablets for 5 days THEN; Take 2 tablets for 4 days THEN; Take 1 tablet for 3 days Print Language: Iraqi
[2025-01-13 20:04] LABS: Basophils Absolute Auto 0.1 X10*3/uL (0.0-0.2); Basophils Percent Auto 0.4 % (0-2); Eosinophils Absolute Auto 0.7 X10*3/uL (0.0-0.4); Eosinophils Percent Auto 5.3 % (0-4); Hematocrit 39.2 % (37.0-47.0); Hemoglobin 12.8 g/dl (12.0-16.0); Imm Gran Abs Auto 0.03 X10*3/uL (0.00-0.03); Imm Gran Pct Auto 0.2 % (0.0-0.4); Lymphocytes Percent Auto 40.5 % (20-40); MANUAL DIFF FLAG SCAN; Mean Corpuscular HGB Conc 32.7 g/dl (31.0-35.0); Mean Corpuscular Hemoglobin 29.9 pg (27.0-33.0); Mean Corpuscular Volume 91.6 fL (80.0-98.0); Mean Platelet Volume 9.4 fL (9.4-12.3); Monocytes Absolute Auto 0.6 X10*3/uL (0.1-1.2); Monocytes Percent Auto 4.8 % (2-11); Neutrophils Percent Auto 48.8 % (45-73); Platelet Count 354 X10*3/uL (160-400); Red Blood Count 4.28 X10*6/uL (4.20-5.50); Red Cell Distribution Width 12.9 % (11.0-16.0); SCAN SMEAR FLAG 1; White Blood Count 12.4 X10*3/uL (4.8-10.8)
[2025-01-13 20:23] LABS: Alanine Aminotransferase 16 U/L (0-31); Albumin Level 4.3 g/dL (3.5-5.0); Alkaline Phosphatase 73 U/L (39-117); Anion Gap 12 (12-20); Aspartate Amino Transferase 16 U/L (5-31); Bilirubin Total 0.6 mg/dL (0.0-1.0); Blood Urea Nitrogen 9 mg/dL (9-16); Calcium 9.6 mg/dL (8.4-10.2); Carbon Dioxide 27 mmol/L (22-29); Chloride 109 mmol/L (96-108); Creatinine Clr Calc Pharmacy 105.8; Estimated Glomerular Filt Rate > 60; Glucose Random 89 mg/dL (60-115); HCG Quantitative < 2 mIU/mL; Lipase 26 U/L (8-78); Potassium 4.6 mmol/L (3.3-5.1); Sodium 143 mmol/L (135-145); Total Protein 7.9 g/dL (6.5-8.0); Troponin-I High Sensitivity < 2.7 ng/L (<3.5-17.0)
[2025-01-13 20:27] LABS: SLIDE REVIEW VERIFIED
[2025-01-13 22:21] VITALS: BP 106/69; PULSE 63; RESP 16; TEMP 36.7; O2SAT 99
[2025-01-13 22:45] VITALS: BP 106/69; PULSE 63; RESP 16; TEMP 36.7; O2SAT 99
== END 2025-01-13 22:55 | disposition home or self-care (01) ==
PROVIDERS: Physician Assistant Medical; Emergency Provider Emergency Medicine; PCP Nurse Practitioner Family
DX: R09.1 Pleurisy (principal); R07.9 Chest pain, unspecified; R20.0 Anesthesia of skin
CPT/HCPCS: 36415; 71045; 80053; 83690; 84484; 84702; 85025; 93005; 99283; 99284

== ENCOUNTER → 2025-01-13 19:18 | Outpatient (BNV) | payer MEDICAID, SELFPAY | PROVIDERS: Emergency Provider Emergency Medicine; PCP Nurse Practitioner Family; Visit Provider Internal Medicine Cardiovascular Disease | DX: R94.31 Abnormal electrocardiogram [ECG] [EKG] (principal); R07.9 Chest pain, unspecified | CPT/HCPCS: 93010 ==

== ENCOUNTER → 2025-01-13 19:47 | Outpatient (BNV) | payer MEDICAID, SELFPAY | PROVIDERS: PCP Nurse Practitioner Family; Visit Provider Student in an Organized Health Care Education/Training Program | DX: R07.9 Chest pain, unspecified (principal) | CPT/HCPCS: 71045 ==

== ENCOUNTER 2025-02-14 12:33 | Emergency (ER) | payer MEDICAID, SELFPAY ==
--- NOTE | 2025-02-14 12:34 | ED.SKABFB ---
HPI - Skin/Abscess/Foreign Bdy General Chief complaint: Wound/Laceration Stated complaint: finger lac ? Time Seen by Provider: 02/14/25 12:38 Source: patient Mode of arrival: ambulatory Limitations: no limitations History of Present Illness ED Provider: ABRAN LEHMAN PA-C HPI narrative: 24-year-old female presents to the ED today for evaluation of laceration to her right index finger sustained prior to arrival. She states that she was attempting to open a package with her pocket knife. She believes the pocket knife wasn't completely locked when she began to use it, causing it to fold and cut the tip of her right index finger. Reports immediate bleeding. Not on AC. Reports washing laceration out and covering it with her own butterfly stitches. She does not believe there is any retained foreign body in the laceration. She is unsure of her tetanus status. Reports minimal pain at laceration site. Denies any difficulty moving her right index finger. No other complaints. Related Data Previous Rx's ?Medication ?Instructions ?Recorded bacitracin 500 unit/gram topical 1 appl topical TID 2 weeks #30 08/13/23 ointment grams prednisone 20 mg tablet 20 mg PO DAILY 12 days #26 tabs 11/19/23 Allergies Allergy/AdvReac Type Severity Reaction Status Date / Time adhesive tape Allergy Rash Verified 02/14/25 12:36 bupropion [From Contrave] Allergy Anaphylaxis Verified 02/14/25 12:36 naltrexone [From Contrave] Allergy Anaphylaxis Verified 02/14/25 12:36 shellfish derived Allergy Anaphylaxis Verified 02/14/25 12:36 Review of Systems Review of Systems: Yes all other systems are reviewed and are negative PMFSH Past Medical History Attestation statement: The following information was validated with the patient. Source: old records reviewed and nursing notes reviewed Physical Exam Vital Signs: Vital Signs: Last Vital Signs Temp 97.3 F 02/14/25 12:35 Pulse 87 02/14/25 12:35 Resp 16 02/14/25 12:35 BP 134/68 02/14/25 12:35 Pulse Ox 99 02/14/25 12:35 O2 Del Method Room Air 02/14/25 12:35 BMI result Body Mass Index 30.3 vital signs stable General: Well appearing, in no acute distress. Skin: see below Head: Normocephalic, atraumatic. EENT: Hearing is intact b/l. Conjunctiva clear. EOM intact. Moist mucous membranes.? Cardiac: Chest wall symmetric Lungs: Normal respiratory effort without accessory muscle use Ext: + 2.5 cm L shaped superficial laceration noted to distal aspect of right pointer finger. No involvement of deeper structures. No active bleeding. No obvious retained foreign body. Full ROM intact to right 2nd MCP, PIP and DIP. Finger strength intact. sensation intact. Neuro: AOx3. Normal speech. Ambulating with steady gait. Course Course Course Narrative: This is an RME: Additional HPI, ROS, PE not included below will be deferred to primary provider. RME assessment and note performed by: Maday Almaraz PA-C This is a 67-[id number]-female who presents to the ER with complaints of laceration. Reports that she was opening up a package with a pocket knife when she accidentally lacerated her finger. Right 2nd digit with approximately 2.5 cm laceration, no active bleeding. Sensation intact. Does not involve the nail. May need suture repair. Unsure when her last tetanus was. Plan: Wound repair Reevaluation(s) Reevaluation #1: Patient has a 2.5 cm L-shaped laceration noted to distal aspect of right pointer finger. No nail involvement. I had patient soak her finger in saline/iodine for over 10 minutes. On re-evaluation, the laceration appears very superficial. Unable to completely pull back any skin. Ligament/tendons appear intact. Full ROM intact to entire finger. No active bleeding. No obvious foreign body. Minimally tender to palpation. I do not feel as though sutures are necessary at this time. My PA student Jareth repaired laceration with Dermabond and 3 Steri-Strips under my supervision. Patient tolerated well. Tdap updated. No need for antibiotics. Patient has remained stable throughout ED visit today. Discussed worrisome signs and symptoms and when to return to the ED. All questions answered at this time. Patient is agreeable with disposition and stable for discharge. Medications Administered Discontinued Medications Generic Name Dose Route Start Last Admin Trade Name Freq PRN Reason Stop Dose Admin Diphtheria/Tetanus/Acell Pertussis 0.5 ml 02/14/25 12:39 02/14/25 13:07 Diphth,Pertus(Acell),Tet Adult 0.5 Ml Syringe IM 02/14/25 12:40 0.5 ml .ONCE ONE Administration Medical Decision Making Medical Decision Making MDM Narrative: 24-year-old female presents to the ED today for evaluation of laceration to her right index finger sustained prior to arrival. Vital signs stable. She is nontoxic-appearing and in no acute distress. On exam of right hand, there is a 2.5 cm L shaped superficial laceration noted to distal aspect of right pointer finger. No involvement of deeper structures. No active bleeding. No obvious retained foreign body. Full ROM intact to right 2nd MCP, PIP and DIP. Finger strength intact. sensation intact. Differential diagnosis includes abrasion, laceration. Unlikely ligament/tendon injury, fracture, retained foreign body. Plan for washout, laceration repair and disposition. Imaging not warranted at this time. Will update Tdap. Differential Diagnosis Differential Diagnoses: The differential diagnosis associated with the presentation includes As above Admission/Observation Not indicated Prescription Management I considered prescription management with: Pain Medication Social Determinants Patient?s care significantly limited by Social Determinants of Health including: Other Social Determinant of Health Procedures Laceration Laceration 1: Site: hand Side (If applicable): right Size (cm): 2.5 Description: irregular (L shaped) Depth: simple, single layer Pre-repair: wound explored and irrigated extensively Skin layer closed with: other (dermabond/ steri strips) Number of sutures: 3 Critical Care Time Critical Care Time Critical Care Time: No Discharge Plan Discharge Clinical Impression: Finger laceration Patient Disposition: Home, Self-Care Instructions: Laceration (ED), Steristrips (ED) Additional Instructions: You have been evaluated in the Emergency Department today for a laceration to your right index finger. Your laceration was repaired in the ED with dermabond and steri strips. Your tetanus vaccination was also updated and will be valid for 5-10 years. Please keep the area surrounding the laceration clean and dry. Do not get the area wet for 24 hours. After 24 hours, you may clean the area with a nonscented soap and pat to dry. Please keep the area out of the sunlight for the next 6 months to help prevent scarring.? If you develop redness or swelling at the site of your laceration or note any discharge/ fluid coming from the laceration, please come back to the ER for a wound check. Your steri streps will fall off on their own. Do not pick at them. I recommend you take 600mg ibuprofen every 6 hours or tylenol 650mg every 6 hours as needed for pain. If needed, you can alternate these medications so that you take one medication every 3 hours. For example, at noon take ibuprofen, then at 3pm take tylenol, then at 6pm take ibuprofen. Return to the Emergency Department if you experience discharge from your laceration, redness around your laceration, warmth around your laceration, fever, vomiting, numbness, tingling, or any other concerning symptoms. In the case of an emergency call 911. Prescriptions: No Action bacitracin 500 unit/gram ointment 1 appl topical TID 14 Days Qty: 30 0RF prednisone 20 mg tablet 20 mg PO DAILY 12 Days Qty: 26 0RF Rx Instructions: Take 3 tablets for 5 days THEN; Take 2 tablets for 4 days THEN; Take 1 tablet for 3 days Referrals: Nimisha Harley EMERGENCY DEPARTMENT PHYSICIAN [Primary Care Provider] - Stand Alone Forms: Work/School Release Print Language: Uzbek
[2025-02-14 12:35] VITALS: BP 134/68; PULSE 87; RESP 16; TEMP 36.3; O2SAT 99; BMI 30.3
[2025-02-14] MEDS: Diphth,Pertus(ACell),Tet Adult 0.5 ML SYRINGE IM (13:07)
--- OUTSIDE RECORDS SUMMARY | 2025-02-14 13:12 | XMS_ITS | Encounter Summary ---
Author Organization [facility] Address [address] [place] [address] Care Team Providers Care Pile Fabric Knitter Name Role Phone Nimisha Harley PANFILO Primary Care Provider [phone] Encounter Details Date Type Department Care Team (Latest Contact Info) Description 02/11/2025 Travel Social History Tobacco Use Types Packs/Day Years Used Date Smoking Tobacco: Former Cigarettes Q uit: 11/26/2017 Passive Smoke Exposure: Past Smokeless Tobacco: Never Alcohol Use Standard Drinks/Week Comments Yes 0 (1 standard drink = 0.6 oz pur e alcohol) socially Depression Answer Date Recorded Patient Health Questionnaire-9 Score 12 02/03/2025 Patient Health Questionnaire-9 Score 12 02/03/2025 Last PHQ-9: Questionnaire Data Not on file 0 02/03/2025 Housing Stability Answer Date Recorded What is your housing situation today? I have david phan 02/03/[address] you li ve. Do you have problems with any of the following? Mold 02/03/2025 Food Insecurity Answer Date Recorded Within the [...] off services in your home? No 10/03/2024 Depression Answer Date Recorded Patient Health Questionnaire-2 Score 1 02/03/2025 Internet Access Answer Date Recorded Internet Access Q1 Yes 10/03/2024 Internet Access Q2 Not on file 10/03/2024 Comments Unknown Sex and Gender Information Value Date Recorded Sex Assigned at Female 12/13/2023 9:54 AM EST Legal Sex Female 9:43 AM EST Gender Identity Female 12/13/2023 9:54 AM EST Sexual Orientation Straight 12/13/2023 9: 54 AM EST documented as of this encounter Plan of Treatment Upcoming Encounters Date Type Department Care Team (Late st Contact Info) Description 02/18/2025 8:45 AM EDT Office Visit [facility] [address] [place] [address] Osmar Moreira, ALFREDO [address] [place] [address] documented as of this encounter Visit Diagnoses Not on filedocumented in this encounter Additional Health Concerns Assessment Noted Time PHQ-9 Depression Total Score: 12 025 2:33 PM EDT documented as of this encounter Care Teams Pile Fabric Knitter Relationship Specialty Start Date End Date Nimisha Harley NP [address] [place] [address] PCP - General Family Medicine 11/03/24 documented as of this encounter
--- OUTSIDE RECORDS SUMMARY | 2025-02-14 13:12 | XMS_ITS | Clinical Summary ---
Author Organization [facility] Address [address] [place] [address] Care Team Providers Care Agricultural Engineering Technicians Name Role Phone Jyoti Gaspar Primary Care [...] (2023-2 5 season) 2024 11/01/2021, 03/21/2021, 02/22/2021 Alcohol/Substance Use Screening 10/29/2024 Depression Screening and Follow-Up 10/29/2024 Social Drivers of Health [place] ual Screening 10/29/2024 Influenza Vaccine (Season Ended) 2025 09/05/2018, 09/05/2018, 07/19/2017, Additional history exists DTaP,Tdap,and Td Vaccines (2 - Td or Tdap) 09/05/2028 09/05/2018 RSV Vaccine (60+ years old a nd patients) (1 - 1-dose 75+ series) 2073 Insurance [place] on file Care Teams Agricultural Engineering Technicians Relationship Specialty Start Date End Date Jyoti Gaspar PCP - General Internal Medicine 07/31/22
--- OUTSIDE RECORDS SUMMARY | 2025-02-14 13:12 | XMS_ITS | Encounter Summary ---
Author Organization [employer] [facility] Address [address] [facility] [address] [place] [address] Care Team Providers Care Circle Edger Name Role Phone Nimisha Harley PANFILO Primary Care Provider [phone] Reason for Visit * Reason Comments Dental Pain Encounter Details Date Type Department Care Team ([facility] st Contact Info) Description 02/11/2025 3:00 PM EDT Office Visit [facility] [address] [place] [address] Tobin Ang, ALFREDO [address] [place] [address] Social History Tobacco Use Types Packs/Day Years [...] AM EST documented as of this encounter Last Filed Vital Signs Vital Sign Reading Time Taken Comments Blood Pressure 152/82 02/11/2025 3:19 PM EDT Pulse 70 02/11/2025 3:19 PM EDT Temperature - - Respiratory Rate - - Oxygen Saturation - - Inhaled Oxygen Concentration - - Weight - - Height - - Body Mass Index - - documented in this encounter Progress Notes * Tobin Ang DMD - 02/11/2025 3:00 PM EDT C/C: toothache at LL posterior teeth I.O.E: sensitive to percussion of #18,19, multiple severe carious teeth #17,18,19, intact #k E.O.E: wnl Radiographic: severe carious teeth #17,18,19, impacted #20, existing #k Dx: ADC#17,18,19, impacted #20, existing #k Tx: exos#17,18,19, k,2,31,32,16 with O.S. Meds: Amoxill. 500mg x 21 tabs Ibuprofen 800 mg x 15 tabs Peridex x 1 bottle Sydni documented in this encounter Plan of Treatment Upcoming Encounters Date Type Department Care Team (Late st Contact Info) Description 02/18/2025 8:45 AM EDT Office Visit [facility] [address] [place] [address] Osmar Moreira, DMD [address] [place] [address] Scheduled Orders Name Type Priority Associated Diagnoses Orde r Schedule PALLIATIVE (EMERGENCY) TREATMENT OF DENTAL PAIN - MINOR PROCEDURE Dental Routine 1 Occurrences starting 02/11/2025 INTRAORAL - PERIAPICAL FIRST RADIOGRAPHIC IMAGE Dental Routine 1 Occur rences starting 02/11/2025 documented as of this encounter Procedures Procedure Name Priority Date/Time Associated Diagnosis Comments PALLIATIVE (EMERGENCY) TREATMENT OF DENTAL PAIN - MINOR PROCEDURE Routine 02/11/2025 3:00 PM EDT INTRAORAL - PERIAPICAL FIRST RADIOGRAPHIC IMAGE Routine 02/11/2025 3:00 PM EDT CASE PRESENTATION, DETAILED AND EXTENSIVE TREATMENT PLANNING Routine 02/11/2025 3:00 PM EDT documented in this encounter Visit Diagnoses Not on filedocumented in this encounter Additional Health Concerns Assessment Noted Time PHQ-9 Depression Total Score: 12 025 2:33 PM EDT documented as of this encounter Care Teams Circle Edger Relationship Specialty Start Date End Date Nimisha Harley NP [address] [place] [id number] PCP - General Family Medicine 11/03/24 documented as of this encounter
--- OUTSIDE RECORDS SUMMARY | 2025-02-14 13:12 | XMS_ITS | Encounter Summary ---
Author Organization [facility] Address [address] [place] [phone] Phone Care Team Providers Care Social Media Editor Name Role Phone Tangela Moreno MD Primary Care Provider Unavailabl e Encounter Details Date Type Department Care Team ([facility] Contact Info) Description 03/17/2018 [facility]version [facility]counter [facility] [address] [address] Yeimi Lester MD [address] [place] [address] Social History Tobacco Use Types Packs/Day Years [...] on filedocumented in this encounter Care Teams Social Media Editor Relationship Specialty Start Date End Date Tangela Moreno MD PCP - General 04/15/20 documented as of this encounter
--- OUTSIDE RECORDS SUMMARY | 2025-02-14 13:12 | XMS_ITS | Encounter Summary ---
Author Organization [employer] Address [address] [facility] [address] [place] [address] Care Team Providers Care Psychological Examiner Name Role Phone Nimisha Harley PANFILO Primary Care Provider [phone] Encounter Details Date Type Department Care Team (Latest Contact Info) Description 02/12/2025 Travel Social History Tobacco Use Types Packs/Day [...] Description 02/18/2025 8:45 AM EDT Office Visit [facility] [address] [place] [address] Osmar Moreira, ALFREDO [address] [place] [address] documented as of this encounter Visit Diagnoses Not on filedocumented in this encounter Additional Health Concerns Assessment Noted Time PHQ-9 Depression Total Score: 12 025 2:33 PM EDT documented as of this encounter Care Teams Psychological Examiner Relationship Specialty Start Date End Date Nimisha Harley NP [address] [place] [address] PCP - General Family Medicine 11/03/24 documented as of this encounter
--- OUTSIDE RECORDS SUMMARY | 2025-02-14 13:12 | XMS_ITS | Referral Summary ---
Author Organization [facility] Address [address] [place] [address] Care Team Providers Care Chief Operating Engineer Name Role Phone Jyoti Gaspar Primary Care [...] Insurance [place] on file Care Teams Chief Operating Engineer Relationship Specialty Start Date End Date Jyoti Gaspar PCP - General Internal Medicine 07/31/22
--- OUTSIDE RECORDS SUMMARY | 2025-02-14 13:12 | XMS_ITS | Clinical Summary ---
Author Organization [facility] Address [address] [place] [phone] Phone Care Team Providers Care Bark Skinner Name Role Phone Tangela Moreno MD Primary Care Provider Unavailabl e Allergies Active Allergy Reactions Criticality Noted Date Comments Food 11/26/2019 shellfish Medications KARIVA 0.15-0.02/0.01 MG (18/03) per tablet Take 1 tablet by mouth once daily. 13 05/29/2019 Active Oseltamivir Phosphate (TAMIFLU PO) Take by mouth. Active Immunizations Immunization Administration Dates Next Due DTaP 01/08/2004, 0,05/30/1999,03/30,02/01/1999 HPV, Quadrivalent 11/08/2011,11/07/2010,09/07/20 10 Hep B, ped/adol 07/18/2016, 9,1998,12/07 Hib (PRP-T) 02/28/2000,199 9,03/30/1999,02/01 IPV 01/08/2004, 0,03/30/1999,02/01 Influenza, injectable, quadrivalent 06/30,08/04/2015,07/26/2013,07/29,09/07/2010,10/08/2009 Influenza, injectable, quadr ivalent, preservative free 07/18/2016,07/25/2014 Influenza, intranasal, quadrivalent 09/04/2008 MMR 01/06/2003,12/05/1999 Meningococcal Conj (Menactra) MCV4P 04/09/2015,1 11/07/2009 Rotavirus Pentavalent 03/30/1999,02/01/1999 Tdap 09/07/2010 Unknown Vaccine 07/09/2015,08/17/2014,01/08/2004 Varicella 05/07/2008,12/05/1999 Family History Medical History Relation Name Comments No Known Problems Father unknown No Known Problems Maternal Grandfather un known No Known Problems Mother No Known Problems Paternal Grandmother un known Relation Name Status Comments Father Alive unknown Maternal Grandfather Alive unknown Maternal Grandmother Alive Mother Alive healthy Other Alive Siblings: healt hy Paternal Grandmother unknown Son Harley Briceno Alive Social History Tobacco Use Types Packs/Day Years Used Date Smoking Tobacco: Never Assessed Comments No Sex and Gender Information Value Date Recorded Sex Assigned at Not on file Legal Sex Female 6:10 PM EDT Gender Identity Not on file Sexual Orientation Not on file Last Filed Vital Signs Vital Sign Reading Time Taken Comments Blood Pressure 116/64 11/26/2019 1:14 PM EST Pulse - - Temperature 36.5 ??C (97.7 ??F) 11/26/2019 1:14 PM ES T Respiratory Rate - - Oxygen Saturation - - Inhaled Oxygen Concentration - - Weight 74.6 kg (164 lb 6.4 oz) 11/26/2019 1:14 P M EST Height 161.9 cm (5' 3.75 ) 11/26/2019 1:14 PM ES T Body Mass Index 28.44 11/26/2019 1:14 PM EST Plan of Treatment Health Maintenance Due Date Last Done Comments Influenza Vaccines (#1) 2024 09/05/20 18, 07/19/2017, 07/18/2016, Additional history exists COVID-19 Vaccine ( season) 2024 03/21/2021, 02/22/2021 DTaP,Tdap,and Td Vaccines (8 - Td or Tdap) 09/05/2028 09/05/2018, 09/07/2010, 01/08/2004, Additional history exists HIB Vaccines Completed 02/28/2000, 11/1998, 03/30/1999, Additional history exists IPV Vaccines Completed 01/08/2004, 04/2000, 03/30/1999, Additional history exists Varicella Vaccines Completed 05/07/2008, 12/05/1999 HPV Vaccines Completed 11/08/2011, 10/29, 09/07/2010 Meningococcal Vaccine Completed 04/09/2015, 010 Hepatitis B Vaccines Completed 07/18/2016, 05/30/1999, 1998, Additional history exists MMR Vaccines Completed 11/10/2018, 12/27, 12/05/1999 Hepatitis A Vaccines Aged Out No long er eligible based on patient's age to complete this topic Men B Vaccine Aged Out No longer elig ible based on patient's age to complete this topic Pneumococcal Vaccine Aged Out No long er eligible based on patient's age to complete this topic Procedures * Due to [place] law, this organization might not be sharing sensitive test results. Procedure Name Priority Date/Time Associated Diagnosis Comments CHLAMYDIA AND GONORRHEA, AMPLIFIED Routine 07/23/2017 12:00 AM EDT from Last 3 Months or Most Recently Relevant to Health Maintenance Results * Due to [place] law, this organization might not be sharing sensitive test results. * Chlamydia and Gonorrhoea, Amplified (07/23/2017 12:00 AM EDT) URINE CHLAMYDIA AMP PROBE NEGATIVE (NEG) CONVERTED LABS Comment: No Chlamydia Trachomatis RNA detected in this patient's sample (REFERENCE RANGE/NORMAL VALUE: NOT DETECTED) URINE GC AMP PROBE NEGATIVE (NEG) C ONVERTED LABS Comment: No Neisseria Gonorrhoeae RNA detected in this patient's sample (REFERENCE RANGE/NORMAL VALUE: NOT DETECTED) NOTE: This test uses medical support assistant-mediated amplification method to detect rRNA from C.Trachomatis and N.Gonorrhoeae. A negative result does not preclude infection. In the case of a negative urine result, testing of an endocervical(female) or urethral(male) specimen is recommended if there is high clinical suspicion of infection. Due to very high sensitivity of Nucleic Acid Amplification Test, false positive results may occur. Therefore, specimen handling is extremely important. In patients in whom the disease is unlikely, additional sample for testing should be considered after an initial positive result. The performance characteristics of this test have not been evaluated in children. The Aptima Combo2 assay is not intended for the evaluation of suspected sexual abuse or for other medico-legal indications. The ordering provider should assess if the patient had consensual sex without risk of sexual abuse. Consult the [facility] if needed. Contact phone number . Therapeutic failure or success cannot be determined with the Aptima Combo2 assay since nucleic acid may persist following appropriate antimicrobial therapy. The Centers for Disease Control and Prevention (CDC) recommends confirmatory retesting using culture or a different nucleic acid amplification test when positive results occur, if indicated. 07/23/2017 Narrative CONVERTED LABS - 07/23/2017 12:00 AM EDT SCREENING Negative April Argueta 07/19/2017 10:56:44 AM > Yeimi Lester 07/23/2017 10:36:39 AM > Yeimi Lester MD LAB MICROBIOLOGY - GENERAL [facility] Final Result CONVERTED LABS from Last 3 Months or Most Recently Relevant to Health Maintenance Insurance [facility] NON PCC Care Teams Bark Skinner Relationship Specialty Start Date End Date Tangela Moreno MD PCP - General 04/15/20
--- OUTSIDE RECORDS SUMMARY | 2025-02-14 13:12 | XMS_ITS | Clinical Summary ---
Author Organization [employer] Address [address] [place] [address] [address] [place] [address] Care Team Providers Care Insulation Worker Interior Surface Name Role Phone Nimisha Harley PANFILO Primary Care Provider [phone] Allergies Active Allergy Reactions Criticality Noted Date Comments Food 11/26/2019 shellfish Iodinated Contrast Media 12/13/2023 Shellfish Allergy Rash Low 08/15/2022 Medications Nexplanon 68 MG contraceptive implant Inject 68 mg under the skin. 04/05/20 23 Active budesonide-formo terol (Symbicort) 80-4.5 MCG/ACT inhalerIndicatio ns:Moderate persistent asthma, unspecified whether complicated Inhale 1 puff in the morning and at bedtime. Rinse mouth with water after use to reduce aftertaste and incidence of candidiasis. Do not swallow. 1 each 1 02/04/20 25 2024 Active albuterol (Ventolin HFA) 108 (90 Base) MCG/ACT inhaler Inhale 2 puffs every 6 (six) hours if needed for wheezing. 18 g 1 02/04/20 25 Active Azelastine-Fluti casone 137-50 MCG/ACT suspensionIndica tions:Allergic rhinitis, unspecified seasonality, unspecified trigger Administer 1 spray into affected nostril(s) 2 times daily. 17 g 2 02/04/20 25 2024 Active oxymetazoline (Afrin Nasal [place]) 0.05 % nasal sprayIndications :Moderate persistent asthma, unspecified whether complicated,Azeem rgic rhinitis, unspecified seasonality, unspecified trigger Administer 2 sprays into each nostril if needed in the morning and at bedtime for congestion (pre med for nasal steroid for up to 5 days) for up to 5 days. Do not use for more than 5 days. 30 mL 02/04/20 Active amoxicillin (Amoxil) 500 MG capsule Take 1 capsule (500 mg) by mouth every 8 (eight) hours for 7 days. 21 capsule 02/12/20 25 2024 Active ibuprofen 800 MG tablet Take 1 tablet (800 mg) by mouth if needed in the morning, at noon, and at bedtime for mild pain or moderate pain for up to 5 days. 15 tablet 02/12/20 25 2024 Active chlorhexidine (Peridex) 0.12 % solution Use 15 mL in the mouth or throat if needed in the morning, at noon, and at bedtime (PROPHYLAXIS) for up to 5 days. 110 mL 02/12/20 25 2024 Active albuterol (Ventolin HFA) 108 (90 Base) MCG/ACT inhaler Inhale. 01/11/20 20 2024 Discontinued(R eorder (will not trigger notification to Pharmacy)) budesonide-formo terol (Symbicort) 80-4.5 MCG/ACT inhalerIndicatio ns:Moderate persistent asthma, unspecified whether complicated Inhale 1 puff in the morning and at bedtime. Rinse mouth with water after use to reduce aftertaste and incidence of candidiasis. Do not swallow. 1 each 1 10/03/20 24 2024 Discontinued(R eorder (will not trigger notification to Pharmacy)) Active Problems Problem Noted Date Diagnosed Date [...] Encounters Date Type Department Care Team Description 02/12/2025 Travel 02/11/2025 3:00 PM EDT Office Visit [facility] [address] [place] [address] Tobin Ang DMD 02/11/2025 Travel 02/03/2025 1:45 PM EDT Office Visit [facility] [address] [place] [address] Nimisha Harley NP Allergic rhinitis, unspecified seasonality, unspecified trigger (Primary Dx); Moderate persistent asthma, unspecified whether complicated 02/03/2025 Travel 01/27/2025 Travel 01/27/[address] [facility] [address] [place], [place] [phone] Nimisha Harley NP Pre-visit Planning (SDOH unable to reach LVM) 01/23/[address] [facility] [address] [place] [address] Shayy Aguiar MA Chart Prep 01/13/2025 Orders Only [facility] External Provider, [facility] 01/09/2025 Population Health Risk Score [facility] ([facility]) Department [address] [phone] Provider, Population Health Generic 12/04/[address] [facility] [address] [place] [address] Renato Webster MA January recall 11/26/2024 6:00 PM EST Office Visit [facility] [address] [place] [address] Oliverio Johnson MD Right anterior knee pain (Primary Dx) 11/26/2024 Travel 11/26/[address] [facility] [address] [place] [address] Nimisha Harley, PANFILO Nurse Triage 11/21/2024 Orders Only [facility] External Provider, [facility] from Last 3 Months Immunizations Name Administration Dates Next Due DTaP 01/08/2004, 0,05/30/1999,03/30,02/01/1999 HPV, Quadrivalent 11/08/2011,11/07/2010,09/07/20 10 Hep B, Adolescent or Pediatric 6,07/09/2015,08/17/2014,01/07,05/30/1999,1998,1998 Hib (PRP-T) 02/28/2000,199 9,03/30/1999,02/01 IPV 01/08/2004, 0,03/30/1999,02/01 Influenza injectable quadriv alent IIV4 with preservative 07/19/2017,08/04/2015,07/26/2013,07/29,09/07/2010,10/08/2009 Influenza injectable quadriv alent preservative free 09/05/2018,07/18/2016,07/25/2014 Influenza live intranasal qu adrivalent LIAV4 09/04/2008 Influenza, IIV3, injectable 11/06/2022,1 11/05/2017,07/19/2017,07/18 MMR 11/10/2018,01/06/2003,12/05/1999 Meningococcal MCV4P ACYW-135 04/09/2015,09/07/20 10 Rotavirus Pentavalent 03/30/1999,02/01/1999 Tdap 08/13/2023, 2,09/05/2018,09/07 Varicella 05/07/2008,12/05/1999 Family History Medical History Relation [...] is your housing situation today? I have davidmaggie phan 02/03/[address] you [...] Pulse 70 02/11/2025 3:19 PM EDT Temperature 36.6 ??C (97.9 ??F) 02/03/2025 1:46 PM ED T Respiratory Rate 16 02/03/2025 1:46 PM EDT Oxygen Saturation 100% 02/03/2025 1:46 PM EDT Inhaled Oxygen Concentration - - Weight 78.4 kg (172 lb 12.8 oz) 02/03/2025 1:46 PM EDT Height 160 cm (5' 3 ) 02/03/2025 1:46 PM EDT Body Mass Index 30.61 02/03/2025 1:46 PM EDT Plan of Treatment Upcoming Encounters Date Type Department Care Team (Late st Contact Info) Description 02/18/2025 8:45 AM EDT Office Visit [facility] [address] [place] [address] Osmar Moreira, DMD [address] [place] [address] Health Maintenance Due Date Last Done Comments Dental Oral Exam 1998 Dental Prophylaxis 1998 HIV Screening 1998 Family Planning (PISQ) 2013 Hepatitis C Screening 2016 Pneumococcal Vaccine: Pediatrics (0 to 5 Years) and At-Risk Patients (6 to 49) Years) (1 of 2 - PCV) 2017 Pap Smear 2019 COVID-19 Vaccine ( season) 2024 11/01/2021, 03/21/2021, 02/22/2021 Influenza Vaccine (#1) 2024 3, 09/05/2018, 09/05/2018, Additional history exists Dental X-Ray: Bitewings 12/14/2024 12/13/2023 Depression Monitoring 08/05/2025 02/03/2025, 025 Alcohol/Substance Use Screening 02/03/2026 02/03/2025 Depression Screening 02/03/2026 02/03/2025, 02/04/20 25 SDOH Screening 02/03/2026 02/03/2025 Tobacco Screening 02/03/2026 02/03/2025 Dental X-Ray: Full Mouth 01/16/2027 01/16/2024 DTaP/Tdap/Td [...] Procedure Name Priority Date/Time Associated Diagnosis Comments CASE PRESENTATION, DETAILED AND EXTENSIVE TREATMENT PLANNING Routine 02/11/2025 3:00 PM EDT INTRAORAL - PERIAPICAL FIRST RADIOGRAPHIC IMAGE Routine 02/11/2025 3:00 PM EDT PALLIATIVE (EMERGENCY) TREATMENT OF DENTAL PAIN - MINOR PROCEDURE Routine 02/11/2025 3:00 PM EDT XR CHEST 1 VIEW Routine 01/13/2025 8:40 PM EDT SLIDE REVIEW Routine 01/13/2025 7:58 PM EDT HCG, TOTAL, QN Routine 01/13/2025 7:58 PM EDT HIGH SENSITIVITY TROPONIN I Routine 01/13/2025 7:58 PM EDT LIPASE Routine 01/13/2025 7:58 PM EDT COMPREHENSIVE METABOLIC PANEL Routine 01/13/2025 7:58 PM EDT CBC WITH AUTO DIFFERENTIAL Routine 01/13/2025 7:58 PM EDT XR KNEE 4+ VIEWS RIGHT Routine 8:08 PM EST PANORAMIC RADIOGRAPHIC IMAGE Routine 01/16/2024 11:30 AM EDT BITEWING - SINGLE RADIOGRAPHIC IMAGE Routine 12/13/2023 9:45 AM EST Dental caries from Last 3 Months or Most Recently Relevant to Health Maintenance Results * XR Chest 1 View (01/13/2025 8:40 PM EDT) Anatomical Region Laterality Modality Chest Radiographic [place] ging 01/13/2025 8:40 PM EDT Narrative 01/13/2025 8:42 PM EDT ? [facility] ?[address] ?[place] [address] ?XRay Report ? Signed ? Patient: Montgomery,Kacy ?MR#: [id number] ?? [id number] ? : 2000 ?Acct:[id number] ? Age/Sex: 24 / F ?ADM Date: 03/18/25 ? Loc: HO.ED ? Attending Dr: ? Ordering Physician: Mariposa Morgan ?? Date of Service: 01/13/25 ?? Procedure(s): XR chest 1V ?? Accession Number(s): [id number] ? cc: Mariposa Morgan; Nimisha Harley VESSEL MASTER ? CLINICAL HISTORY: pain ? 1 view chest x-ray ? Comparison: None ? Findings: ?? No consolidation or effusion. ?? Normal size heart. ?? No acute fracture. ? IMPRESSION: ?? 1. No acute findings. ? This document has been electronically signed by: Yael Mc MD on ?? 01/13/2025 20:40:12 ? Dictated By: ?Yael Mc MD ? Signed By: ?<Electronically signed by Yael Mc MD in OV> ?01/13/252040 ? DD/ 39 ? TD/TT: 01/13/252039 ? Name Plate Stamping Machine Operator: ? Procedure Note Donotuseinterpreter, Image - 01/13/[address] [address] XRay Report Signed Patient: Les Quarles#: [id number] : 2000Acct:[id number] Age/Sex: 24 / FADM Date: 01/13/25 Loc: .ED Attending Dr: Ordering Physician: Mariposa Morgan Date of Service: 01/13/25 Procedure(s): XR chest 1V Accession Number(s): [id number] cc: Mariposa Morgan; Nimisha Harley NP CLINICAL HISTORY: pain 1 view chest x-ray Comparison: None Findings: No consolidation or effusion. Normal size heart. No acute fracture. IMPRESSION: 1. No acute findings. This document has been electronically signed by: Yael Mc MD on 01/13/2025 20:40:12 Dictated By: Yael Mc MD Signed By: <Electronically signed by Yael Mc MD in OV> 01/13/252040 DD/ 39 TD/TT: 01/13/252039 Name Plate Stamping Machine Operator: [facility] External Provider IMG XR PROCEDURES Final Result * Slide Review (01/13/2025 7:58 PM EDT) Slide Review VERIFIED [facility] 01/13/2025 7:58 PM EDT 01/13/2025 8:00 PM EDT us Generic External Data Provider LAB BLOOD ORDERAB LES Final Result Performing Organization Address [facility] Co de Phone Number [facility] [address] [place] [phone] * High Sensitivity Troponin I (01/13/2025 7:58 PM EDT) [facility] TROPONIN I HIGH SENSITIVITY <2.7 <3.5 - 17.0 ng/L [facility] Comment:The Colon high sens itivity Troponin-I results should beused in conjunction with other diagnostic information suchas ECG, clinical observations and information, and patientsymptoms to aid in the diagnosis of DE. 01/13/2025 7:58 PM EDT 01/13/2025 8:00 PM EDT us Generic External Data Provider LAB BLOOD ORDERAB LES Final Result Performing Organization Address [facility] de Phone Number [facility] [address] [place] [phone] * (ABNORMAL) CBC auto differential (01/13/2025 7:58 PM EDT) [facility] White Blood Count 12.4(H) 4.8 - 10.8 X10*3/uL [facility] Red Blood Count 4.28 4.20 - 5.50 X10*6/uL [facility] Hemoglobin 12.8 12.0 - 16.0 g/dl [facility] Hematocrit 39.2 37.0 - 47.0 % [facility] Mean Corpuscular Volume 91.6 80.0 - 98.0 fL [facility] Mean Corpuscular Hemoglobin 29.9 27.0 - 33.0 pg [facility] Mean Corpuscular HGB Conc 32.7 31.0 - 35.0 g/dl [facility] Red Cell Distribution Width 12.9 11.0 - 16.0 % [facility] Platelet Count 354 160 - 400 X10*3/uL [facility] Mean Platelet Volume 9.4 9.4 - 12.3 fL [facility] Neutrophils Percent Auto 48.8 45 - 73 % [facility] Imm Gran Pct Auto 0.2 0.0 - 0.4 % [facility] Lymphocytes Percent Auto 40.5(H) 20 - 40 % [facility] Monocytes Percent Auto 4.8 2 - 11 % [facility] Eosinophils Percent Auto 5.3(H) 0 - 4 % [facility] Basophils Percent Auto 0.4 0 - 2 % [facility] NRBC Pct Auto 0.0 0.0 - 0.2 /100WBC [facility] Neutrophils Absolute Auto 6.0 2.0 - 8.3 x10*3/uL [facility] Imm Gran Abs Auto 0.03 0.00 - 0.03 X10*3/uL [facility] Lymphocytes Absolute Auto 5.0(H) 1.2 - 4.9 X10*3/uL [facility] Monocytes Absolute Auto 0.6 0.1 - 1.2 X10*3/uL [facility] Eosinophils Absolute Auto 0.7(H) 0.0 - 0.4 X10*3/uL [facility] Basophils Absolute Auto 0.1 0.0 - 0.2 X10*3/uL [facility] NRBC Abs Auto 0.000 0.0 - 0.012 X10*3/uL [facility] 01/13/2025 7:58 PM EDT 01/13/2025 8:00 PM EDT us Generic External Data Provider LAB BLOOD ORDERAB LES Edited Result - Final [facility] [address] [place] [phone] [phone] * hCG, Total, Quantitative (01/13/2025 7:58 PM EDT) HCG Quantitative <2 mIU/mL [facility] Comment:Weeks post LMP Appro ximate hCG(Last Menstrual Period) Range (mIU/ml)3 - 4 weeks 9 - 1304 - 5 weeks 75 - 2,6005 - 6 weeks 850 - 20,8006 - 7 weeks 4000 - 100,2007 - 12 weeks 11,500 - 289,20304 - 16 weeks 18,300 - 137,69182 - 29 weeks (2nd trimester) 1,400 - 53,88720 - 41 weeks (3rd trimester) 940 - 60,000The Colon B- hCG assay is used for the early detection ofpregnancy; it cannot be used to diagnose any conditionunrelated to . If a B-hCG level is not supportedby the clinical evidence, results should be confirmed by analternative method (qualitative urine hCG, for example). 01/13/2025 7:58 PM EDT 01/13/2025 8:00 PM EDT Generic External Data Provider LAB BLOOD ORDERAB LES Final Result Performing Organization Address [facility] Co de Phone Number [facility] [address] [place] [phone] * Lipase (01/13/2025 7:58 PM EDT) Lipase 26 8 - 78 U/L [facility] 01/13/2025 7:58 PM EDT 01/13/2025 8:00 PM EDT Generic External Data Provider LAB BLOOD ORDERAB LES Final Result Performing Organization Address [facility] Co de Phone Number [facility] [address] [place] [phone] * (ABNORMAL) Comprehensive Metabolic Panel (01/13/2025 7:58 PM EDT) Sodium 143 135 - 145 mmol/L [facility] Potassium 4.6 3.3 - 5.1 mmol/L [facility] Chloride 109(H) 96 - 108 mmol/L [facility] Carbon Dioxide 27 22 - 29 mmol/L [facility] Anion Gap 12 12 - 20 [facility] Urea Nitrogen (BUN) 9 9 - 16 mg/dL [facility] Creatinine, Serum 0.78 0.5 - 1.4 mg/dL [facility] Creatinine Clr Calc Pharmacy 105.8 [facility] Comment:Provided height and weight: 160.02 cm,74.843 kg.eGFR (calculated from the MDRD study equation) and eCrCl(calculated from the Cockcroft-Gault equation) are based ondifferent parameters and may not yield comparable results.If eCrCl result is absurd, please check patient'sheight/weight. Estimated Glomerular Filt Rate >60 [facility] Comment:Chronic Kidney Disea se: Estimated GFR < 60 mL/min/1.47p2Ovwbon Kidney Disease: Estimated GFR < 15 mL/min/1.73m2 Glucose 89 60 - 115 mg/dL [facility] Calcium 9.6 8.4 - 10.2 mg/dL [facility] Bilirubin, Total 0.6 0.0 - 1.0 mg/dL [facility] Aspartate Amino Transferase 16 5 - 31 U/L [facility] Alanine Aminotransferase 16 0 - 31 U/L [facility] Total Protein 7.9 6.5 - 8.0 g/dL [facility] Albumin Level 4.3 3.5 - 5.0 g/dL [facility] Alkaline Phosphatase 73 39 - 117 U/L [facility] 01/13/2025 7:58 PM EDT 01/13/2025 8:00 PM EDT us Generic External Data Provider LAB BLOOD ORDERAB LES Final Result [facility] [address] [place] [phone] [phone] * XR Knee 4+ Views Right (11/21/2024 8:08 PM EST) Anatomical Region Laterality Modality Lower Extremities, Knee Right Radiogra phic Imaging 11/21/2024 8:08 PM EST Narrative 11/21/2024 8:10 PM EST ? [facility] ?[address] ?[place] [address] ?XRay Report ? Signed ? Patient: Montgomery,Kacy ?MR#: [id number] ?? [id number] ? : 2000 ?Acct:[id number] ? Age/Sex: 23 / F ?ADM Date: 11/21/24 ? Loc: HO.ED ? Attending Dr: ? Ordering Physician: Alise Tariq NP ?? Date of Service: 11/21/24 ?? Procedure(s): XR knee RT 4V ?? Accession Number(s): [id number] ? cc: Nimisha Harley VESSEL MASTER; Alise Tariq NP ? CLINICAL HISTORY: fall [...] signed by Vick Daugherty MD in OV> ?11/21/24 2009 ? DD/ 07 ? TD/TT: 11/21/242007 ? Name Plate Stamping Machine Operator: ? Procedure Note Shaynamicheal, Image - 11/21/2024 [place] [address] XRay Report Signed Patient: Les Quarles#: [id number] : 2000Acct:[id number] Age/Sex: 23 / FADM Date: 11/21/24 Loc: HO.ED Attending Dr: Ordering Physician: Alise Tariq NP Date of Service: 11/21/24 Procedure(s): XR knee RT 4V Accession Number(s): [id number] cc: Nimisha Harley VESSEL MASTER; Alise Tariq NP CLINICAL HISTORY: fall onto [...] in OV> 11/21/242008 DD/ 07 TD/TT: 11/21/242007 Name Plate Stamping Machine Operator: [facility] External Provider IMG XR PROCEDURES Edited Result - Final from Last 3 Months Insurance [facility] C3 DENTAL-[facility] MEDICAID STAND ADULT Care Teams Insulation Worker Interior Surface Relationship Specialty Start Date End Date Nimisha Harley NP [address] [place] [phone] PCP - General Family Medicine 11/03/24
[2025-02-14 13:25] VITALS: BP 134/68; PULSE 87; RESP 16; TEMP 36.3; O2SAT 99
== END 2025-02-14 13:25 | disposition home or self-care (01) ==
PROVIDERS: Emergency Provider Emergency Medicine; PCP Nurse Practitioner Family
DX: S61.210A Laceration without foreign body of right index finger without damage to nail, initial encounter (principal); W26.0XXA Contact with knife, initial encounter; Y93.9 Activity, unspecified; Y92.9 Unspecified place or not applicable; Y99.9 Unspecified external cause status; Z23 Encounter for immunization
CPT/HCPCS: 12001; 90471; 90715; 99282; 99284

== ENCOUNTER → 2025-05-06 18:27 | Outpatient (BNV) | payer MEDICAID, SELFPAY | PROVIDERS: PCP Nurse Practitioner Family; Visit Provider Radiology Diagnostic Radiology | DX: M25.462 Effusion, left knee (principal) | CPT/HCPCS: 73721 ==

== ENCOUNTER 2025-05-06 18:34 | Outpatient (REF) | payer MEDICAID, SELFPAY ==
--- NOTE | ~2025-05-06 | MR_ITS ---
CLINICAL HISTORY: left knee buckling and giving out MR left knee without gadolinium Comparison: CR - XR KNEE RT 4V - 11/21/24 20:03 EST Findings: Menisci are intact. Cruciate ligaments are intact. Collateral ligaments are intact. No significant osteoarthritis. Red marrow reconversion within the distal femoral metadiaphysis. Small knee joint effusion. Tiny Lopez's cyst. Patellar retinacula and iliotibial band are intact. Quadriceps, patellar, popliteus, and flexor tendons are intact. IMPRESSION: 1. No evidence of internal derangement of the knee. 2. Small knee joint effusion and tiny Lopez's cyst. 3. Red marrow reconversion within the distal femur which can be seen with obesity, smoking, etc. This document has been electronically signed by: Beau Soto DO on 05/08/2025 11:30:23
--- OUTSIDE RECORDS SUMMARY | 2025-05-06 18:36 | XMS_ITS | Referral Summary ---
Author Organization [facility] Address [address] [place] [address] Care Team Providers Care Test Center Administrator Name Role Phone Jyoti Gaspar Primary Care [...] Insurance [place] [employer] on file Care Teams Test Center Administrator Relationship Specialty Start Date End Date Jyoti Gaspar PCP - General Internal Medicine 07/31/22
--- OUTSIDE RECORDS SUMMARY | 2025-05-06 18:36 | XMS_ITS | Clinical Summary ---
Author Organization [facility] Address [address] [place] [phone] Phone Care Team Providers Care Key Punch Teacher Name Role Phone Tangela Moreno MD Primary [...] PM EST Pulse - - Temperature 36.5 C (97.7 F) 11/26/2019 1:14 PM EST Respiratory Rate - - Oxygen Saturation - - Inhaled Oxygen Concentration - - Weight 74.6 kg (164 lb 6.4 oz) 11/26/2019 1:14 P M EST Height 161.9 cm (5' 3.75 ) 11/26/2019 1:14 PM ES T Body Mass Index 28.44 11/26/2019 1:14 PM EST Plan of Treatment Health Maintenance Due Date Last Done Comments COVID-19 Vaccine ( season) 2024 03/21/2021, 02/22/2021 Influenza Vaccines (#1) 2025 09/05/20 18, 07/19/2017, 07/18/2016, Additional history exists DTaP,Tdap,and Td Vaccines (8 - Td or [...] this topic Procedures * Due to [place] [employer] law, this organization might not be sharing sensitive test results. Procedure Name Priority Date/Time Associated Diagnosis Comments CHLAMYDIA AND GONORRHEA, AMPLIFIED Routine 07/23/2017 12:00 AM EDT from Last 3 Months or Most Recently Relevant to Health Maintenance Results * Due to [place] [employer] law, this organization might not be sharing [...] VALUE: NOT DETECTED) NOTE: This test uses float phlebotomist-mediated amplification method to detect rRNA from C.Trachomatis [...] without risk of sexual abuse. Consult the [facility] [place] if needed. Contact phone number . Therapeutic [...] Yeimi Lester MD LAB MICROBIOLOGY - GENERAL [place] BET[place]OURT Final Result CONVERTED LABS from Last 3 Months or Most Recently Relevant to Health Maintenance Insurance [facility] NON PCC Care Teams Key Punch Teacher Relationship Specialty Start Date End Date Tangela Moreno MD PCP - General 04/15/20
== END 2025-05-06 18:35 | disposition home or self-care (01) ==
LOC: HO.MRI 18:34
PROVIDERS: PCP Nurse Practitioner Family; Visit Provider Nurse Practitioner Family
DX: S89.92XD Unspecified injury of left lower leg, subsequent encounter (principal)
CPT/HCPCS: 73721

== ENCOUNTER 2025-06-23 13:53 | Outpatient (REF) | payer MEDICAID, SELFPAY ==
--- NOTE | ~2025-06-23 | XR_ITS ---
EXAMINATION: XR LUMBOSACRAL SPINE CLINICAL INFORMATION: acute midline low back pain COMPARISON: None available. TECHNIQUE: AP and lateral views. FINDINGS: Decreased intervertebral disc height at L5-S1. No acute cortical disruption or gross malalignment. Small Schmorl nodes in multiple levels of the lower thoracic and upper lumbar spine. No lytic or blastic lesions. XR/XR lumbar spine 2-3V IMPRESSION: Mild spondylosis L5-S1. Electronically signed by: Waylon Rocha MD 06/23/2025 02:16 PM EDT
--- OUTSIDE RECORDS SUMMARY | 2025-06-23 13:00 | XMS_ITS | Encounter Summary ---
Author Organization [employer] Address [address] [facility] 7 [place] [address] Care Team Providers Care Email Marketer Name Role Phone Nimisha Harley PANFILO Primary Care Provider [phone] Reason for Visit * Reason Comments lower pain Encounter Details Date Type Department Care Team ([facility] st Contact Info) Description 06/23/2025 1:00 PM EDT Office Visit [facility] [address] [place] [address] Acute midline low back pain with right-sided sciatica (Primary Dx) Social History Tobacco Use Types Packs/Day Years Used Date Smoking Tobacco: Former Cigarettes Q uit: 11/26/2017 Passive Smoke Exposure: Past Smokeless Tobacco: Former Alcohol Use Standard Drinks/Week Comments Yes 0 [...] Sign Reading Time Taken Comments Blood Pressure 137/79 06/23/2025 1:06 PM EDT Pulse 86 06/23/2025 1:06 PM EDT Temperature 35.9 C (96.7 F) 06/23/2025 1:06 PM EDT Respiratory Rate 20 06/23/2025 1:06 PM EDT Oxygen Saturation 99% 06/23/2025 1:06 PM EDT Inhaled Oxygen Concentration - - Weight 81 kg (178 lb 9.6 oz) 06/23/2025 1:06 PM EDT Height - - Body Mass Index 29.72 04/27/2025 12:58 PM EDT documented in this encounter Plan of Treatment Not on file documented as of this encounter Procedures Procedure Name Priority Date/Time Associated Diagnosis Comments XR LUMBAR SPINE 2-3 VIEWS Routine 06/23/2025 1:21 PM EDT Acute midline low back pain with right-sided sciatica documented in this encounter Results * XR Lumbar Spine 2-3 Views (06/23/2025 1:21 PM EDT) Anatomical Region Laterality Modality Spine, L-spine Radiographic [place] ging 06/23/2025 1:21 PM EDT Narrative 06/23/2025 2:19 PM EDT [address] [address] XRay Report Signed Patient: Kacy Quarles MR#: [id number] : 2000 Acct:[id number] Age/Sex: 24 / F ADM Date: 06/23/25 Loc: HO.AVERYCX Attending Dr: Nguyen Mendoza MD Ordering Physician: Nguyen Mendoza MD Date of Service: 06/23/25 Procedure(s): XR lumbar spine 2-3V Accession Number(s): [id number] cc: Nguyen Mendoza MD EXAMINATION: XR LUMBOSACRAL SPINE CLINICAL INFORMATION: acute midline low back pain COMPARISON: None available. TECHNIQUE: AP and lateral views. FINDINGS: Decreased intervertebral disc height at L5-S1. No acute cortical disruption or gross malalignment. Small Schmorl nodes in multiple levels of the lower thoracic and upper lumbar spine. No lytic or blastic lesions. XR/XR lumbar spine 2-3V IMPRESSION: Mild spondylosis L5-S1. Electronically signed by: Waylon Rocha MD 06/23/2025 02:16 PM EDT Dictated By: Waylon Baker MD Signed By: <Electronically signed by Waylon Mansfield MD in OV> 06/23/25 1416 DD/ 1321 TD/TT: 06/23/25 1400 Bleach Plant Operator: Procedure Note Donotuseinterpreter, Image - 06/23/[address] [address] XRay Report Signed Patient: Les Quarles#: [id number] : 2000Acct:[id number] Age/Sex: 24 / FADM Date: 06/23/25 Loc: HO.AVERYCX Attending Dr: Nguyen Mendoza MD Ordering Physician: Nguyen Mendoza MD Date of Service: 06/23/25 Procedure(s): XR lumbar spine 2-3V Accession Number(s): [id number] cc: Nguyen Mendoza MD EXAMINATION: XR LUMBOSACRAL SPINE CLINICAL INFORMATION: acute midline low back pain COMPARISON: None available. TECHNIQUE: AP and lateral views. FINDINGS: Decreased intervertebral disc height at L5-S1. No acute cortical disruption or gross malalignment. Small Schmorl nodes in multiple levels of the lower thoracic and upper lumbar spine. No lytic or blastic lesions. XR/XR lumbar spine 2-3V IMPRESSION: Mild spondylosis L5-S1. Electronically signed by: Waylon Rocha MD 06/23/2025 02:16 PM EDT RP Dictated By: Waylon Baker MD Signed By: <Electronically signed by Waylon Mansfield MDin OV> 06/23/25 1416 DD/ 1321 TD/TT: 06/23/25 1400 Bleach Plant Operator: Nguyen Mendoza MD IMG XR PROCEDURES Final Re sult documented in this encounter Visit Diagnoses Diagnosis Acute midline low back pain with right-sided sciatica- Primary documented in this encounter Additional Health Concerns Assessment Noted Time PHQ-9 Depression Total Score: 12 025 2:33 PM EDT documented as of this encounter Care Teams Email Marketer Relationship Specialty Start Date End Date Nimisha Harley NP [address] [place] [address] PCP - General Family Medicine 11/03/24 documented as of this encounter
--- OUTSIDE RECORDS SUMMARY | 2025-06-23 14:47 | XMS_ITS | Encounter Summary ---
Author Organization [employer] Address [address] [facility] [address] [place] [address] Care Team Providers Care Public Works Technician Name Role Phone Nimisha Harley NP Primary Care Provider [phone] Reason for Visit * Reason Onset Date Comments Appointment Request 04/07/2025 Encounter Details Date Type Department Care Team ([facility] st Contact Info) Description 04/07/2025 Telephone [facility] [address] [place] [address] Nimisha Harley NP [address] [place] [address] Appointment Request Social History Tobacco Use Types Packs/Day Years [...] encounter Miscellaneous Notes * Telephone Encounter - Jessica Nugent - 04/07/2025 12:19 PM EDT Tc from pt requesting an appt to discuss with PCP about getting an MRI scan. Contact pt at [phone] documented in this encounter Plan of Treatment Not on file documented as of this encounter Visit Diagnoses Not on filedocumented in this encounter Additional Health Concerns Assessment Noted Time PHQ-9 Depression Total Score: 12 025 2:33 PM EDT documented as of this encounter Care Teams Public Works Technician Relationship Specialty Start Date End Date Nimisha Harley NP [address] [place] [phone] PCP - General Family Medicine 11/03/24 documented as of this encounter
--- OUTSIDE RECORDS SUMMARY | 2025-06-23 14:48 | XMS_ITS | Encounter Summary ---
Author Organization [facility] Address [address] [place] [phone] Phone Care Team Providers Care Supervisor [employer] Name Role Phone Tangela Moreno MD Primary Care Provider Unavailabl e Encounter Details Date Type Department Care Team ([facility] Contact Info) Description 03/17/2018 Conversion [facility]counter [facility] [address] [address] Yeimi Lester MD [address] [place] [address] Social History Tobacco Use Types Packs/Day Years [...] on filedocumented in this encounter Care Teams Supervisor [employer] Relationship Specialty Start Date End Date Tangela Moreno MD PCP - General 04/15/20 documented as of this encounter
--- OUTSIDE RECORDS SUMMARY | 2025-06-23 14:48 | XMS_ITS | Encounter Summary ---
Author Organization [employer] Address [address] [facility] [address] [place] [address] Care Team Providers Care Hydrology Teacher Name Role Phone Nimisha Harley PANFILO Primary Care Provider [phone] Reason for Visit * Reason Onset Date Comments Results 05/08/2025 Encounter Details Date Type Department Care Team ([facility] st Contact Info) Description 05/08/2025 Results Follow-Up [facility] [address] [place] [address] Hilda Tellez MD [address] [place] [address] MR Knee w/o Contrast Left Social History Tobacco Use Types Packs/Day Years [...] your housing situation today? I have david sing 02/03/[address] you li [...] encounter Miscellaneous Notes * Telephone Encounter - Sita Trujillo RN - 05/08/2025 3:04 PM EDT TC placed to pt in regards to the message below from covering provider for PCP. Pt given results knee MRI showing no internal derangement of the left knee to explain pt current buckling and giving out. Pt offered options including sports medicine, orthopedics and PT to help with pt current symptoms. Pt was agreeable to starting with physical therapy and also confirmed an appt with orthopedics in June. ----- Message from Hilda Tellez MD sent at 05/08/2025 2:07 PM EDT ----- Please let pt know that her MRI shows no internal derangement of L knee to explain buckling and giving out. Is she going through physical therapy right now? If not, I can refer. Otherwise she should see sports medicine or ortho as the next step. Geoff covering for Cherri ----- Message ----- From: Zack John Results In Sent: 05/08/2025 11:32 AM EDT To: Nimisha Harley NP * Result Encounter Note - Hilda Tellez MD - 05/08/2025 2:07 PM EDT Please let pt know that her MRI shows no internal derangement of L knee to explain buckling and giving out. Is she going through physical therapy right now? If not, I can refer. Otherwise she should see sports medicine or ortho as the next step. Geoff covering for Cherri documented in this encounter Plan of Treatment Not on file documented as of this encounter Visit Diagnoses Not on filedocumented in this encounter Additional Health Concerns Assessment Noted Time PHQ-9 Depression Total Score: 12 025 2:33 PM EDT documented as of this encounter Care Teams Hydrology Teacher Relationship Specialty Start Date End Date Nimisha Harley NP [address] [place] [address] PCP - General Family Medicine 11/03/24 documented as of this encounter
--- OUTSIDE RECORDS SUMMARY | 2025-06-23 14:48 | XMS_ITS | Clinical Summary ---
Author Organization [employer] Address [address] [place] [address] 7t [place] [address] Care Team Providers Care Employment Agency Manager Name Role Phone Nimisha Harley PANFILO Primary Care Provider Allergies Active Allergy Reactions Criticality Noted Date Comments Food 11/26/2019 shellfish Iodinated Contrast Media 12/13/2023 Shellfish Allergy Rash Low 08/15/2022 Medications Nexplanon 68 MG contraceptive implant Inject 68 mg under the skin. 04/05/20 23 Active albuterol (Ventolin HFA) 108 (90 Base) MCG/ACT inhaler Inhale 2 puffs every 6 (six) hours if needed for wheezing. 18 g 1 02/04/20 25 Active Dymista 137-50 MCG/ACT suspensionIndica tions:Allergic rhinitis, unspecified seasonality, unspecified trigger INSTILL 1 SPRAY IN EACH NOSTRIL TWICE DAILY 23 g 2 04/28/20 25 Active budesonide-formo terol (Symbicort) 80-4.5 MCG/ACT inhalerIndicatio ns:Moderate persistent asthma, unspecified whether complicated Inhale 1 puff in the morning and at bedtime. Rinse mouth with water after use to reduce aftertaste and incidence of candidiasis. Do not swallow. 1 each 1 06/08/20 25 2024 Active predniSONE (Deltasone) 20 MG tabletIndication s:Acute midline low back pain with right-sided sciatica 2 tabs po daily for 5 days 10 tablet 06/23/20 25 Active ibuprofen 800 MG tabletIndication s:Acute midline low back pain with right-sided sciatica Take 1 tablet (800 mg) by mouth every 8 (eight) hours if needed for moderate pain or fever. 30 tablet 06/23/20 25 2024 Active cyclobenzaprine (Flexeril) 10 MG tabletIndication s:Acute midline low back pain with right-sided sciatica Take 1 tablet (10 mg) by mouth 2 times daily for 20 days. 40 tablet 06/23/20 25 2024 Active acetaminophen (Tylenol) 325 MG capsuleIndicatio ns:Acute midline low back pain with right-sided sciatica Take 1 capsule (325 mg) by mouth every 8 (eight) hours if needed for moderate pain or fever (pain). 30 capsule 06/23/20 25 2024 Active budesonide-formo terol (Symbicort) 80-4.5 MCG/ACT inhalerIndicatio ns:Moderate persistent asthma, unspecified whether complicated Inhale 1 puff in the morning and at bedtime. Rinse mouth with water after use to reduce aftertaste and incidence of candidiasis. Do not swallow. 1 each 1 02/04/20 25 2024 Discontinued(R eorder (will not trigger notification to Pharmacy)) Active Problems Problem Noted Date Diagnosed Date Missing teeth, acquired 06/01/2025 Dental calculus 06/01/2025 Injury of left knee 04/27/2025 Assessment & Plan (04/27/2025 1:15 PM EDT): Pt with chronic left knee instability, endorses buckling, giving out, hyperextension and lateral tracking of patellofemoral tendon Has completed pt in the past has not seen ortho Referral to ortho Mri due to persistent and increasing joint instability Dietary counseling 10/04/2024 Assessment & Plan (10/04/2024 [...] abscess 01/16/2024 Impacted teeth 01/16/2024 Dental caries 01/09/2024 Allergic rhinitis 12/13/2023 Assessment & Plan (03/17/2025 11:31 AM EDT): Trial topical nasal steroid, may use afrin for 3 days due to severity of congestion Asthma 12/13/2023 Assessment & Plan (03/17/2025 11:31 AM EDT): Inhaler helpful Add symbicort, rinse mouth out Assessment & Plan (10/04/2024 1:15 PM EST): Add pulmicort, monitor frequency of albuterol needed Follow up in 1 month Bipolar 1 disorder 12/13/2023 Class 1 obesity 12/13/2023 Hair loss 12/13/2023 History of gestational diabetes 12/13/2023 Hypermobility of joint 12/13/2023 PTSD (post-traumatic stress disorder) 12/13/2023 Encounters Date Type Department Care Team Description 06/23/2025 1:00 PM EDT Office Visit [facility] [address] [place] [id number] Nguyen Mendoza MD Acute midline low back pain with right-sided sciatica (Primary Dx) 06/23/2025 Telephone [facility] [address] [facility] [place] [address] Nimisha Harley NP 06/23/2025 Travel 06/11/2025 Telephone [facility] [address] [facility] [place] [address] Yaima Reyna CNM Appointment Request 06/06/2025 Refill [facility] [address] [facility] [place] [address] Nimisha Harley NP Moderate persistent asthma, unspecified whether complicated 06/01/2025 9:45 AM EDT Office Visit [facility] [address] [place] [address] Jessica Andrade Gingivitis (Primary Dx); Gingival bleeding; Dental calculus 06/01/2025 9:00 AM EDT Office Visit [facility] [address] [place] [address] Rachid Sarmiento DDS Missing teeth, acquired (Primary Dx); Dental plaque; Dental calculus; Dental caries 06/01/2025 Travel 05/27/2025 9:15 AM EDT Office Visit [address] [address] Yaima Reyna CNM Family planning counseling (Primary Dx); Family history of ovarian cancer 05/27/2025 Travel 05/26/2025 Telephone [facility] [place] [address] Yaima Reyna CNM CHART PREP 05/26/2025 Travel 05/22/[address] [address] Nimisha Harley NP Referral 05/12/2025 Orders Only [address] [address] Hilda Tellez MD Injury of left knee, subsequent encounter (Primary Dx) 05/08/2025 Results Follow-Up [address] [address] Hilda Tellez MD MR Knee w/o Contrast Left 04/27/2025 1:00 PM EDT Office Visit [address] [address] Nimisha Harley, PANFILO Injury of left knee, subsequent encounter (Primary Dx) 04/27/2025 Travel 04/27/2025 Refill [facility] [address] [place] [address] Nimisha Harley, PANFILO Allergic rhinitis, unspecified seasonality, unspecified trigger 04/08/2025 9:30 AM EDT Office Visit [facility] [address] [place] [address] Osmar Moreira DMD History of tooth extraction, unspecified edentulism class (Primary Dx) 04/07/2025 Telephone [facility] [address] [place] [address] Shayy Aguiar [place] Appointmernt request 04/07/2025 Travel 04/07/2025 Telephone [facility] [address] [place] [address] Nimisha Harley NP Appointment Request from Last 3 Months Immunizations Immunization Administration Dates Next Due DTaP 01/08/2004, 0,05/30/1999,03/30,02/01/1999 HPV, Quadrivalent 11/08/2011,11/07/2010,09/07/20 10 Hep B, Adolescent or Pediatric 6,07/09/2015,08/17/2014,01/07,05/30/1999,1998,1998 Hib (PRP-T) 02/28/2000, 9,03/30/1999,02/01 IPV 01/08/2004, 0,03/30/1999,02/01 Influenza injectable quadriv alent IIV4 with preservative 07/19/2017,08/04/2015,07/26/2013,07/29,09/07/2010,10/08/2009 Influenza injectable quadriv alent preservative free 09/05/2018,07/18/2016,07/25/2014 Influenza live intranasal qu adrivalent LIAV4 09/04/2008 Influenza, IIV3, injectable 11/06/2022,1 11/05/2017,07/19/2017,07/18 MMR 11/10/2018,01/06/2003,12/05/1999 Meningococcal MCV4P ACYW-135 04/09/2015,09/07/20 10 Rotavirus Pentavalent 03/30/1999,02/01/1999 Tdap 08/13/2023, 2,09/05/2018,09/07 Varicella 05/07/2008,12/05/1999 Family History Medical History Relation Name Comments Diabetes Father Jose Hypertension Father Jose Lung cancer Maternal Grandfather Lenin Hypertension Maternal Grandmother Liliana Ovarian cancer Maternal Grandmother Liliana Diabetes Mother Roberta Hypertension Mother Roberta Asthma Mother's Brother Lenin Drug abuse Mother's Brother Lenin Diabetes Mother's Sister 1 Dory Asthma Mother's Sister 2 Viviana Depression Mother's Sister 2 Viviana Diabetes Mother's Sister 3 Dory Relation Name Status Comments Father Jose Maternal Grandfather Lenin Alive Maternal Grandmother Liliana Alive Mother Roberta Alive Mother's Brother Lenin Alive Mother's Sister 1 Dory Alive Mother's Sister 2 Viviana Alive Mother's Sister 3 Dory Alive Social History Tobacco Use Types Packs/Day [...] Q2 Not on file 10/03/2024 Comments Unknown Intention Date Recorded No desire to become (finding) 0 05/27/2025 Sex and Gender Information Value Date Recorded [...] 9.6 oz) 06/23/2025 1:06 PM EDT Height 165.1 cm (5' 5 ) 04/27/2025 12:58 PM EDT Body Mass Index 29.72 04/27/2025 12:58 PM EDT Plan of Treatment Health Maintenance Due Date Last Done Comments HIV Screening 1998 Hepatitis C Screening 2016 Pneumococcal Vaccine: Pediatrics (0 to 5 Years) and At-Risk Patients (6 to 49) Years (1 of 2 - PCV) 2017 Pap Smear 2019 COVID-19 Vaccine ( season) 2024 11/01/2021, 03/21/2021, 02/22/2021 Influenza Vaccine (#1) 2025 , 09/05/2018, 09/05/2018, Additional history exists Depression Monitoring 08/05/2025 02/03/2025, 025 Dental Oral Exam 12/03/2025 06/01/2025 Dental Prophylaxis 12/03/2025 06/01/2025 Alcohol/Substance Use Screening 02/03/2026 02/03/2025 SDOH Screening 02/03/2026 02/03/2025 Disability Screening 05/27/2026 05/27/2025 Family Planning (PISQ) 05/27/2026 05/27/2025 Tobacco Screening 06/01/2026 06/01/2025 Dental X-Ray: Bitewings 06/02/2026 06/01/2025, 12/13 Dental X-Ray: Full Mouth 06/02/2028 06/01/2025, 12/28 DTaP/Tdap/Td Vaccines (10 - Td or Tdap) [...] on patient's age to complete this topic Meningococcal B Vaccine Aged Out No l onger eligible based on patient's age to complete this topic RSV under 20 months Aged Out No longe r eligible based on patient's age to complete this topic Procedures Procedure Name Priority Date/Time Associated Diagnosis Comments XR LUMBAR SPINE 2-3 VIEWS Routine 06/23/2025 1:21 PM EDT Acute midline low back pain with right-sided sciatica CASE PRESENTATION, DETAILED AND EXTENSIVE TREATMENT PLANNING Routine 06/01/2025 9:45 AM EDT Gingivitis Gingival bleeding Dental calculus ORAL HYGIENE INSTRUCTIONS Routine 06/01/2025 9:45 AM EDT Gingivitis Gingival bleeding Dental calculus PROPHYLAXIS - ADULT Routine 06/01/2025 9 :45 AM EDT Gingivitis Gingival bleeding Dental calculus CASE PRESENTATION, DETAILED AND EXTENSIVE TREATMENT PLANNING Routine 06/01/2025 9:00 AM EDT INTRAORAL - COMPLETE SERIES OF RADIOGRAPHIC IMAGES Routine 06/01/2025 9:00 AM EDT COMPREHENSIVE ORAL EVALUATION - NEW OR ESTABLISHED PATIENT Routine 06/01/2025 9:00 AM EDT 15 O AMALGAM FILLING Routine 06/01/2025 12:00 AM EDT 14 O AMALGAM FILLING Routine 06/01/2025 12:00 AM EDT 13 DO COMPOSITE FILLING Routine 06/01/2025 12:00 AM EDT 12 O COMPOSITE FILLING Routine 12:00 AM EDT 8 DL COMPOSITE FILLING Routine 12:00 AM EDT 7 F(V) COMPOSITE FILLING Routine 06/01/2025 12:00 AM EDT 7 M COMPOSITE FILLING Routine 06/01/2025 12:00 AM EDT 7 D COMPOSITE FILLING Routine 06/01/2025 12:00 AM EDT 5 DO COMPOSITE FILLING Routine 12:00 AM EDT 4 MOD COMPOSITE FILLING Routine 06/01/2025 12:00 AM EDT 3 MO AMALGAM FILLING Routine 06/01/2025 12:00 AM EDT 1 EXTRACTION Routine 06/01/2025 12:00 AM EDT MR KNEE WO CONTRAST LEFT Routine 05/08/2025 11:30 AM EDT Injury of left knee, subsequent encounter 2 EXTRACTION, ERUPTED TOOTH OR EXPOSED ROOT (ELEVATION/FORCEPS REMOVAL) Routine 04/08/2025 9:30 AM EDT 31 EXTRACTION, ERUPTED TOOTH OR EXPOSED ROOT (ELEVATION/FORCEPS REMOVAL) Routine 04/08/2025 9:30 AM EDT 32 REMOVAL OF IMPACTED TOOTH - COMPLETELY BONY Routine 04/08/2025 9:30 AM EDT from Last 3 Months Results * XR Lumbar Spine 2-3 Views (06/23/2025 1:21 PM EDT) Anatomical Region Laterality Modality Spine, L-spine Radiographic [place] ging 06/23/2025 1:21 PM EDT Narrative 06/23/2025 2:19 PM EDT [address] [address] XRay Report Signed Patient: Kacy Quarles MR#: [id number] : 2000 Acct:[id number] Age/Sex: 24 / F ADM Date: 06/23/25 Loc: [facility] Attending Dr: Nguyen Mendoza MD Ordering Physician: Nguyen Mendoza MD Date of Service: 06/23/25 Procedure(s): XR lumbar spine 2-3V Accession Number(s): [id number] cc: Nguyen Mendoza MD EXAMINATION: XR LUMBOSACRAL [...] 06/23/25 1416 DD/ 1321 TD/TT: 06/23/25 1400 Electric Welder Helper: Procedure Note Donotuseinterpreter, Image - 06/23/[address] [address] XRay Report Signed Patient: Tobias QuarlesR#: [id number] : 2000Acct:[id number] Age/Sex: 24 / FADM Date: 06/23/25 Loc: HO.HHCX Attending Dr: Nguyen Mendoza MD Ordering Physician: Nguyen Mendoza MD Date of Service: 06/23/25 Procedure(s): XR lumbar spine 2-3V Accession Number(s): [id number] cc: Nguyen Mendoza MD EXAMINATION: XR LUMBOSACRAL [...] 06/23/25 1416 DD/ 1321 TD/TT: 06/23/25 1400 Electric Welder Helper: Nguyen Mendoza MD IMG XR PROCEDURES Final Re sult * MR Knee w/o Contrast Left (05/08/2025 11:30 AM EDT) Anatomical Region Laterality Modality Magnetic Resonan ce 05/08/2025 11:3 0 AM EDT Narrative 05/08/2025 11:31 AM EDT [place] [address] Magnetic Resonance Report Signed Patient: Kacy Quarles MR#: [id number] : 2000 Acct:[id number] Age/Sex: 24 / F ADM Date: 05/06/25 Loc: HO.MRI Attending Dr: Nimisha Harley ADJUNCT PROFESSOR OF ENGLISH Ordering Physician: Nimisha Harley NP Date of Service: 05/06/25 Procedure(s): MR knee LT wo con Accession Number(s): [id number] cc: Nimisha Harley NP CLINICAL HISTORY: left knee buckling and giving out MR left knee without gadolinium Comparison: CR - XR KNEE RT 4V - 11/21/24 20:03 EST Findings: Menisci are intact. Cruciate ligaments are intact. Collateral ligaments are intact. No significant osteoarthritis. Red marrow reconversion within the distal femoral metadiaphysis. Small knee joint effusion. Tiny Lopez's cyst. Patellar retinacula and iliotibial band are intact. Quadriceps, patellar, popliteus, and flexor tendons are intact. IMPRESSION: 1. No evidence of internal derangement of the knee. 2. Small knee joint effusion and tiny Lopez's cyst. 3. Red marrow reconversion within the distal femur which can be seen with obesity, smoking, etc. This document has been electronically signed by: Beau Soto DO on 05/08/2025 11:30:23 Dictated By: Beau Soto MD Signed By: <Electronically signed by Beau Soto MD in OV> 05/08/25 1131 DD/ 1130 TD/TT: 05/08/25 1130 Electric Welder Helper: Procedure Note Donotuseinterpreter, Image - 05/08/2025 [place] [address] Magnetic Resonance Report Signed Patient: Les Quarles#: [id number] : 2000Acct:[id number] Age/Sex: 24 / FADM Date: 05/06/25 Loc: HO.MRI Attending Dr: Nimisha Harley NP Ordering Physician: Nimisha Harlye NP Date of Service: 05/06/25 Procedure(s): MR knee LT wo con Accession Number(s): [id number] cc: Nimisha Harley NP CLINICAL HISTORY: left knee buckling and giving out MR left knee without gadolinium Comparison: CR - XR KNEE RT V - 11/21/24 20:03 EST Findings: Menisci are intact. Cruciate ligaments are intact. Collateral ligaments are intact. No significant osteoarthritis. Red marrow reconversion within the distal femoral metadiaphysis. Small knee joint effusion. Tiny Lopez's cyst. Patellar retinacula and iliotibial band are intact. Quadriceps, patellar, popliteus, and flexor tendons are intact. IMPRESSION: 1. No evidence of internal derangement of the knee. 2. Small knee joint effusion and tiny Lopez's cyst. 3. Red marrow reconversion within the distal femur which can be seen with obesity, smoking, etc. This document has been electronically signed by: Beau Soto DO on 05/08/2025 11:30:23 Dictated By: Beau Soto MD Signed By: <Electronically signed by Beau Soto MD in OV> 05/08/25 1131 DD/ 1130 TD/TT: 05/08/25 113 Electric Welder Helper: Nimisha Harley NP IMG MRI PROCEDURES Final Result from Last 3 Months Insurance [facility] C3 DENTAL-[facility] MEDICAID STAND ADULT Care Teams Employment Agency Manager Relationship Specialty Start Date End Date Nimisha Harley NP [address] [place] [address] PCP - General Family Medicine 11/03/24
--- OUTSIDE RECORDS SUMMARY | 2025-06-23 14:48 | XMS_ITS | Encounter Summary ---
Author Organization [employer] Address [address] [facility] 7t [place] [address] Care Team Providers Care Recycle Driver Name Role Phone Nimisha Harley PANFILO Primary Care Provider [phone] Encounter Details Date Type Department Care Team (Latest Contact Info) Description 06/23/2025 Travel Social History Tobacco Use Types Packs/Day [...] documented as of this encounter Care Teams Recycle Driver Relationship Specialty Start Date End Date Nimisha Harley NP [address] [place] [address] PCP - General Family Medicine 11/03/24 documented as of this encounter
--- OUTSIDE RECORDS SUMMARY | 2025-06-23 14:48 | XMS_ITS | Clinical Summary ---
Author Organization [facility] Address [address] [place] [address] Care Team Providers Care Unemployment Benefits Claims Taker Name Role Phone Jyoti Gaspar Primary Care [...] [facility] [place] ual Screening 10/29/2024 Influenza Vaccine (#1) 2025 8, 09/05/2018, 07/19/2017, Additional history exists DTaP,Tdap,and Td Vaccines (2 - Td or Tdap) 09/05/2028 09/05/2018 RSV Vaccine (60+ years old a nd patients) (1 - 1-dose 75+ series) 2073 Insurance [place] [employer] on file Care Teams Unemployment Benefits Claims Taker Relationship Specialty Start Date End Date Jyoti Gaspar PCP - General Internal Medicine 07/31/22
--- OUTSIDE RECORDS SUMMARY | 2025-06-23 14:48 | XMS_ITS | Clinical Summary ---
Author Organization [facility] Address [address] [place] [phone] Phone Care Team Providers Care Medical Or Surgical Instrument Maker Name Role Phone Tangela Moreno MD Primary [...] complete this topic Procedures * Due to [place] [employer] law, this organization might not be sharing sensitive test results. Procedure Name Priority Date/Time Associated Diagnosis Comments CHLAMYDIA AND GONORRHEA, AMPLIFIED Routine 07/23/2017 12:00 AM EDT from Last 3 Months or Most Recently Relevant to Health Maintenance Results * Due to [place] [employer] law, this organization might not be sharing [...] VALUE: NOT DETECTED) NOTE: This test uses mobile service rv technician-mediated amplification method to detect rRNA from C.Trachomatis [...] without risk of sexual abuse. Consult the [facility] [place] if needed. Contact phone number . Therapeutic [...] Most Recently Relevant to Health Maintenance Insurance [facility] NON PCC Care Teams Medical Or Surgical Instrument Maker Relationship Specialty Start Date End Date Tangela Moreno MD PCP - General 04/15/20
--- OUTSIDE RECORDS SUMMARY | 2025-06-23 14:48 | XMS_ITS | Encounter Summary ---
Author Organization [employer] Address [address] [facility] 7t [place] [address] Care Team Providers Care Tonger Name Role Phone Nimisha Harley NP Primary Care Provider [phone] Reason for Referral * Consultation (Routine) - Closed Specialty Diagnoses / Procedures Referred By Mo t Referred To Contact Physical Therapy Diagnoses Injury of left knee, subsequent encounter Hilda Tellez MD [address] [place] [address] Phone: tel: fax: [facility] [address] [place] [address] Phone: tel: fax: Referral ID Status Reason Start Date Expiration Date V isits Requested Visits Authorized [id number] Closed Specialty Services Required 05/12/2025 05/12/2026 20 20 Encounter Details Date Type Department Care Team (Late st Contact Info) Description 05/12/2025 Orders Only [facility] [address] [place], [place] [phone] Hilda Tellez MD [address] [place], [place] [phone] Injury of left knee, subsequent encounter (Primary Dx) Social History Tobacco Use Types [...] as of this encounter Plan of Treatment Scheduled Referrals Name Type Priority Associated Diagnoses Orde r Schedule Referral to Physical Therapy Outpatient Referral Routine Injury of left knee, subsequent encounter Expected: 05/12/2025 (Approximate), Expires: 05/12/2026 documented as of this encounter Visit Diagnoses Diagnosis Injury of left knee, subsequent encounter- Primary documented in this encounter Additional Health Concerns Assessment Noted Time PHQ-9 Depression Total Score: 12 025 2:33 PM EDT documented as of this encounter Care Teams Tonger Relationship Specialty Start Date End Date Nimisha Harley NP [address] [place] [address] PCP - General Family Medicine 11/03/24 documented as of this encounter
--- OUTSIDE RECORDS SUMMARY | 2025-06-23 14:48 | XMS_ITS | Encounter Summary ---
Author Organization [email or web address] Address [address] [facility] 7t [place] [address] Care Team Providers Care Professor Of Geology Name Role Phone Nimisha Harley NP Primary Care Provider [phone] Encounter Details Date Type Department Care Team ([facility] st Contact Info) Description 06/23/2025 Telephone [facility] [address] [place] [address] Nimisha Harley NP [address] [place] [address] Social History Tobacco Use Types Packs/Day Years [...] documented as of this encounter Care Teams Professor Of Geology Relationship Specialty Start Date End Date Nimisha Harley NP [address] [place] [address] PCP - General Family Medicine 11/03/24 documented as of this encounter
== END 2025-06-23 13:54 | disposition home or self-care (01) ==
LOC: HO.HHCX 13:53
PROVIDERS: Visit Provider Family Medicine
DX: M54.41 Lumbago with sciatica, right side (principal)
CPT/HCPCS: 72100

== ENCOUNTER → 2025-06-23 13:54 | Outpatient (BNV) | payer MEDICAID, SELFPAY | PROVIDERS: Visit Provider Radiology Diagnostic Radiology | DX: M54.50 Low back pain, unspecified (principal) | CPT/HCPCS: 72100 ==

== ENCOUNTER 2025-07-15 08:22 | Outpatient (REF) | payer MEDICAID, SELFPAY ==
--- NOTE | ~2025-07-15 | XR_ITS ---
EXAMINATION: XR KNEE, LEFT 1V CLINICAL INFORMATION: M25.562 - Pain in left knee COMPARISON: MRI left knee 05/06/2025. TECHNIQUE: Patellofemoral view of the left knee. FINDINGS: No fracture, dislocation, or bone lesion. Normal patellofemoral alignment. Normal joint space. Normal soft tissues. XR/XR knee LT 1V IMPRESSION: Normal left knee patellofemoral view. Electronically signed by: José Miguel Ga MD 07/15/2025 03:08 PM EDT
--- OUTSIDE RECORDS SUMMARY | 2025-07-16 09:23 | XMS_ITS | Encounter Summary ---
Author Organization [employer] Address [address] [facility] [address]t [place] [address] Care Team Providers Care Retarder Operator Name Role Phone Nimisha Harley NP Primary Care Provider [phone] Reason for Referral * Consultation (Routine) - Closed Specialty Diagnoses / Procedures Referred By Mo t Referred To Contact Physical Therapy Diagnoses Injury of left knee, subsequent encounter Hilda Tellez MD [address] [place] [address] Phone: tel: fax: [facility] Physical Therapy [address] [place] [address] Phone: tel: fax: Referral ID Status Reason Start Date Expiration Date V isits Requested Visits Authorized [id number] Closed Specialty Services Required 05/12/2025 05/12/2026 20 20 Encounter Details Date Type Department Care Team (Late st Contact Info) Description 05/12/2025 Orders Only [facility] [address] [place], [place] [phone] Hilda Tellez MD [address] [place], [place] [phone] Injury of left knee, subsequent encounter (Primary [...] Description 07/23/2025 10:15 AM EDT Office Visit [facility] [address] [place] [address] Yaima Reyna CNM [address] [place] [address] 08/18/2025 9:30 AM EDT Office Visit [facility] ADULT DENT[facility] [address] [place] [address] Rachid Sarmiento DDS [address] [place] [address] Scheduled Referrals Name Type Priority Associated Diagnoses [...] documented as of this encounter Care Teams Retarder Operator Relationship Specialty Start Date End Date Nimisha Harley NP [address] [place] [address] PCP - General Family Medicine 11/03/24 documented as of this encounter
--- OUTSIDE RECORDS SUMMARY | 2025-07-16 09:23 | XMS_ITS | Encounter Summary ---
Author Organization [employer] Address [address] [facility] 7t [place] [address] Care Team Providers Care Parts Designer Name Role Phone Nimisha Harley PANFILO Primary Care Provider [phone] Encounter Details Date Type Department Care Team ([facility] st Contact Info) Description 07/15/2025 Telephone [facility] [address] [place] [address] Yaima Reyna CNM [address] [place] [address] Social History Tobacco Use Types Packs/Day Years [...] 10:15 AM EDT Office Visit [facility] [address] [place] [address] Yaima Reyna CNM [address] [place] [address] 08/18/2025 9:30 AM EDT Office Visit [facility] ADULT [facility] [address] [place] [address] Rachid Sarmiento DDS [address] [place] [address] documented as of this encounter Visit Diagnoses Not on filedocumented in this encounter Additional Health Concerns Assessment Noted Time PHQ-9 Depression Total Score: 12 025 2:33 PM EDT documented as of this encounter Care Teams Parts Designer Relationship Specialty Start Date End Date Nimisha Harley NP [address] [place] [address] PCP - General Family Medicine 11/03/24 documented as of this encounter
--- OUTSIDE RECORDS SUMMARY | 2025-07-16 09:23 | XMS_ITS | Clinical Summary ---
Author Organization [employer] Address [address] [place] [address] 7t [place] [address] Care Team Providers Care Bridge Painter Helper Name Role Phone Nimisha Harley PANFILO Primary Care Provider [phone] Allergies Active Allergy Reactions Criticality Noted Date [...] Type Department Care Team Description 07/15/2025 Telephone [facility] [address] [place] [address] Yaima Reyna CNM 06/23/2025 1:00 PM EDT Office Visit [facility] [address] [place] [address] Nguyen Mendoza MD Acute midline low back pain with right-sided sciatica (Primary Dx) 06/23/2025 Telephone [facility] [address] [place] [address] Nimisha Harley NP 06/23/2025 Travel 06/11/2025 Telephone [facility] [address] [place] [address] Yaima Reyna CNM Appointment Request 06/06/2025 Refill [facility] [place] [address] Nimisha Harley NP Moderate persistent asthma, unspecified whether complicated 06/01/2025 9:45 AM EDT Office Visit [facility] [address] [facility] [place] [address] Jasvir Andradearis Gingivitis (Primary Dx); Gingival bleeding; Dental calculus 06/01/2025 9:00 AM EDT Office Visit [facility] [address] [place] [address] Rachid Sarmiento DDS Missing teeth, acquired (Primary Dx); Dental plaque; Dental calculus; Dental caries 06/01/2025 Travel 05/27/2025 9:15 AM EDT Office Visit [facility] [place] [address] Yaima Reyna CNM Family planning counseling (Primary Dx); Family history of ovarian cancer 05/27/2025 Travel 05/26/[address] [address] Yaima Reyna CNM CHART PREP 05/26/2025 Travel 05/22/[address] [address] Nimisha Harley NP Referral 05/12/2025 Orders Only [address] [address] Hilda Tellez MD Injury of left knee, subsequent encounter (Primary Dx) 05/08/2025 Results Follow-Up [facility] [address] [place] [address] Hilda Tellez MD MR Knee w/o Contrast Left 04/27/2025 1:00 PM EDT Office Visit [facility] [address] [place] [address] Nimisha Harley NP Injury of left knee, subsequent encounter (Primary Dx) 04/27/2025 Travel 04/27/2025 Refill [facility] [place] [address] Nimisha Harley NP Allergic rhinitis, unspecified seasonality, [...] Description 07/23/2025 10:15 AM EDT Office Visit [facility] [address] [place] [address] Yaima Reyna, CNM [address] [place] [address] 08/18/2025 9:30 AM EDT Office Visit [facility] [address] [place] [address] Rachid Sarmiento, ANTHONYS [address] [place] [address] Health Maintenance Due Date Last Done Comments [...] PM EDT Narrative 06/23/2025 2:19 PM EDT [address] [address] XRay Report Signed Patient: Kacy Quarles MR#: [id number] : 2000 Acct:[id number] Age/Sex: 24 / F ADM Date: 06/23/25 Loc: [facility] Attending Dr: Nguyen Mendoza MD Ordering Physician: Nguyen Mendoza MD Date of Service: 06/23/25 Procedure(s): XR lumbar spine 2-3V Accession Number(s): [id number] cc: Nguyen Mendoza MD EXAMINATION: XR LUMBOSACRAL [...] 06/23/25 1416 DD/ 1321 TD/TT: 06/23/25 1400 Asphalt Mixing Machine Operator: Procedure Note Donotuseinterpreter, Image - 06/23/[address] [address] XRay Report Signed Patient: Les Quarles#: [id number] : 2000Acct:[id number] Age/Sex: Date: 06/23/25 Loc: [facility] Attending Dr: Nguyen Mendoza MD Ordering Physician: Nguyen Mendoza MD Date of Service: 06/23/25 Procedure(s): XR lumbar spine 2-3V Accession Number(s): [id number] cc: Nguyne Mendoza MD EXAMINATION: XR LUMBOSACRAL SPINE CLINICAL [...] 06/23/25 1416 DD/ 1321 TD/TT: 06/23/25 1400 Asphalt Mixing Machine Operator: us Nguyen Mendoza MD IMG XR PROCEDURES Final Re sult * MR Knee w/o Contrast Left (05/08/2025 11:30 AM EDT) Anatomical Region Laterality Modality Magnetic Resonan ce 05/08/2025 11:3 0 AM EDT Narrative 05/08/2025 11:31 AM EDT [place] [address] Magnetic Resonance Report Signed Patient: Kacy Quarles MR#: [id number] : 2000 Acct:[id number] Age/Sex: 24 / F ADM Date: 05/06/25 Loc: [facility] Attending Dr: Nimisha Harley NP Ordering Physician: Nimisha Harley NP Date of Service: 05/06/25 Procedure(s): MR knee LT wo con Accession Number(s): [id number] cc: Nimisha Harley NP CLINICAL HISTORY: left [...] 05/08/25 1131 DD/ 1130 TD/TT: 05/08/25 1130 Asphalt Mixing Machine Operator: Procedure Note Donotuseinterpreter, Image - 05/08/[address] [address] Magnetic Resonance Report Signed Patient: Les Quarles#: [id number] : 2000Acct:[id number] Age/Sex: M Date: 05/06/25 Loc: [facility]MRI Attending Dr: Nimisha Harley NP Ordering Physician: Nimisha Harley NP Date of Service: 05/06/25 Procedure(s): MR knee LT wo con Accession Number(s): [id number] cc: Nimisha Harley NP CLINICAL HISTORY: left [...] 05/08/25 1131 DD/ 1130 TD/TT: 05/08/25 1130 Asphalt Mixing Machine Operator: us Nimisha Harley DIRECTOR OF RETENTION IMG MRI PROCEDURES Final Result from Last 3 Months Insurance [facility] MEDICAID STAND ADULT Care Teams Bridge Painter Helper Relationship Specialty Start Date End Date Nimisha Harley NP [address] [place] [phone] PCP - General Family Medicine 11/03/24
--- OUTSIDE RECORDS SUMMARY | 2025-07-16 09:23 | XMS_ITS | Encounter Summary ---
Author Organization [facility] Address [address] [place] [phone] Phone Care Team Providers Care Education Reporter Name Role Phone Tangela Moreno MD Primary Care Provider Unavailabl e Encounter Details Date Type Department Care Team ([facility] Contact Info) Description 03/17/2018 [facility]version [facility]counter [facility] [address] [address] Yeimi Lester MD [address] [place] [address] Social History Tobacco Use Types Packs/Day Years [...] on filedocumented in this encounter Care Teams Education Reporter Relationship Specialty Start Date End Date Tangela Moreno MD PCP - General 04/15/20 documented as of this encounter
--- OUTSIDE RECORDS SUMMARY | 2025-07-16 09:23 | XMS_ITS | Clinical Summary ---
Author Organization [facility] Address [address] [place] [address] Care Team Providers Care Armhole Presser Name Role Phone Jyoti Gaspar Primary Care [...] Insurance [place] on file Care Teams Armhole Presser Relationship Specialty Start Date End Date Jyoti Gaspar PCP - General Internal Medicine 07/31/22
--- OUTSIDE RECORDS SUMMARY | 2025-07-16 09:23 | XMS_ITS | Clinical Summary ---
Author Organization [facility] Address [address] [place] [address] Phone Care Team Providers Care Co Founder And Ceo Name Role Phone Tangela Moreno MD Primary [...] complete this topic Procedures * Due to [place] [employer] law, this organization might not be sharing sensitive test results. Procedure Name Priority Date/Time Associated Diagnosis Comments CHLAMYDIA AND GONORRHEA, AMPLIFIED Routine 07/23/2017 12:00 AM EDT from Last 3 Months or Most Recently Relevant to Health Maintenance Results * Due to [place] [employer] law, this organization might not be sharing [...] VALUE: NOT DETECTED) NOTE: This test uses cold rolling machine setter-mediated amplification method to detect rRNA from C.Trachomatis [...] without risk of sexual abuse. Consult the [facility] [place] if needed. Contact phone number . Therapeutic [...] Most Recently Relevant to Health Maintenance Insurance [employer] NON PCC Care Teams Co Founder And Ceo Relationship Specialty Start Date End Date Tangela Moreno MD PCP - General 04/15/20
== END 2025-07-15 08:23 | disposition home or self-care (01) ==
LOC: HO.HOSX 08:22
PROVIDERS: Visit Provider Physician Assistant
DX: M22.2X2 Patellofemoral disorders, left knee (principal); M71.22 Synovial cyst of popliteal space [Baker], left knee; S52.202D Unspecified fracture of shaft of left ulna, subsequent encounter for closed fracture with routine healing; X58.XXXD Exposure to other specified factors, subsequent encounter
CPT/HCPCS: 73560; 99212

== ENCOUNTER 2025-07-15 14:54 | Outpatient (AMB) | payer MEDICAID, SELFPAY ==
--- NOTE | 2025-07-15 15:06 | MHC.OFFVIS ---
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 Referred by PCP due to ongoing pain and buckling in her knee. Tried and failed physical therapy. MRI was obtained and referred to orthopedics. Patient reports pain in her whole leg from the lateral aspect of hip to her knee that has been present since teen years. Her knee pain is located at the anterior aspect of knee, and swelling at the medial aspect. She has difficulty with prolong walking and her knee gives out. States injury in past however not did not start her knee problem. She mentions being seen at [facility] for her back conditions. Patient has tried knee bracing, but has not found a knee brace that has provided the support she needs. 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 She notices discomfort with prolonged walking standing and stair climbing. She feels when she is going up and downstairs her knee is going to buckle and give out. She states she has had physical therapy several years ago with minimal relief. [facility] Social History (Updated 07/15/25 @ 15:22 by СЕРГЕЙ Hannon) Patient Tobacco Use Status: Never used Tobacco Current occupational status: employed Current occupation: [employer], left hand dominant Review of Systems Const All systems reviewed & are unremarkable except as noted in HPI and below Physical Exam Const General: cooperative and no acute distress Orientation/consciousness: patient oriented x3 Resp Effort & Inspection: normal respiratory effort and able to speak in complete sentences Cardio Peripheral pulses: Peripheral pulses 2+ throughout Neuro General: patient oriented x3 Extrem Other: Left knee skin intact, no erythema or joint effusion. Tenderness along the medial joint line. ROM full with crepitus. Negative steinmans. No ligamentous laxity. NVI. Results Reviewed Results Reviewed: IMPRESSION: 1. No evidence of internal derangement of the knee. 2. Small knee joint effusion and tiny Lopez's cyst. 3. Red marrow reconversion within the distal femur which can be seen with obesity, smoking, etc Assessment & Plan Assessment & Plan (1) Patellofemoral disorders, left knee: Code(s): M22.2X2 - Patellofemoral disorders, left knee Category: Medical Plan: We discussed options which include PT, NSAIDs and injections. She will defer on the injection today and proceed with PT and NSAIDs. If symptoms persist she will contact me for an injection, otherwise, prn. Ibuprofen sent tot pharmacy. Orders: Orders PT Evaluation and Treatment 07/15/25 M22.2X2 - Patellofemoral disorders, left knee XR knee LT 1V 07/15/25 M25.562 - Pain in left knee Medications: New ibuprofen 800 mg PO Q8H PRN 90 tabs 3RF pain 30 days S52.209D - Unspecified fracture of shaft of unspecified ulna, subsequent encounter for closed fracture with routine healing Discontinued prednisone Take 3 tablets for 5 days THEN; Take 2 tablets for 4 days THEN; Take 1 tablet for 3 days Discontinued Reason: Patient no longer taking 20 mg PO DAILY 12 days 26 tabs 0RF bacitracin Discontinued Reason: Patient no longer taking 1 appl topical TID 2 weeks 30 grams 0RF Coding Level of Care Code New Pt Level 3 (64549) Complex EM visit Add On G2211 Diagnoses Patellofemoral disorders, left knee M22.2X2
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
--- OUTSIDE RECORDS SUMMARY | 2025-07-15 18:28 | XMS_ITS | Clinical Summary ---
Author Organization [facility] Address [address] [place] [address] Care Team Providers Care Truck Engine Assembler Name Role Phone Jyoti Gaspar Primary Care [...] Years) (1 of 2 - PCV) 2017 Alcohol/Substance Use Screening 10/29/2024 Depression Screening and Follow-Up 10/29/2024 Social Drivers of Health [place] ual Screening 10/29/2024 COVID-19 Vaccine (4 - 2024-2 6 season) 2025 11/01/2021, 03/21/2021, 02/22/2021 Influenza Vaccine (#1) 2025 8, 09/05/2018, 07/19/2017, Additional history exists DTaP,Tdap,and Td Vaccines (2 - Td or Tdap) 09/05/2028 09/05/2018 RSV Vaccine (60+ years old a nd patients) (1 - 1-dose 75+ series) 2073 Insurance [employer] [employer] on file Care Teams Truck Engine Assembler Relationship Specialty Start Date End Date Jyoti Gaspar PCP - General Internal Medicine 07/31/22
--- OUTSIDE RECORDS SUMMARY | 2025-07-15 18:28 | XMS_ITS | Encounter Summary ---
Author Organization [facility] Address [address] [place] [address] Phone Care Team Providers Care Road Engineer Name Role Phone Tangela Moreno MD Primary Care Provider Unavailabl e Encounter Details Date Type Department Care Team ([facility] Contact Info) Description 03/17/2018 Conversion [facility]counter [facility] [address] [address] Yeimi Lester MD [address] [place] [address] Social History Tobacco Use Types Packs/Day Years [...] on filedocumented in this encounter Care Teams Road Engineer Relationship Specialty Start Date End Date Tangela Moreno MD PCP - General 04/15/20 documented as of this encounter
--- OUTSIDE RECORDS SUMMARY | 2025-07-15 18:28 | XMS_ITS | Encounter Summary ---
Author Organization [employer] Address [address] [facility] 7t [place] [address] Care Team Providers Care Second Cook And Baker Name Role Phone Nimisha Harley NP Primary Care Provider [phone] Reason for Referral * Consultation (Routine) - Closed Specialty Diagnoses / Procedures Referred By Mo t Referred To Contact Physical Therapy Diagnoses Injury of left knee, subsequent encounter Hilda Tellez MD [address] [place] [address] Phone: tel: fax: [facility] Physical Therapy [address] [place] [address] Phone: tel: fax: Referral ID Status Reason Start Date Expiration Date V isits Requested Visits Authorized [id number] Closed Specialty Services Required 05/12/2025 05/12/2026 20 20 Encounter Details Date Type Department Care Team (Late st Contact Info) Description 05/12/2025 Orders Only [facility] [address] [place], [place] [phone] Hilda Tellez MD [address] [place], [place] [phone] Injury of left knee, subsequent encounter (Primary [...] Care Team (Late st Contact Info) Description 07/23/2025 10:15 AM EDT Office Visit [facility] [address] [place] [address] Yaima Reyna CNM [address] [place] [address] 08/18/2025 9:30 AM EDT Office Visit [facility] [address] [place] [address] Rachid Sarmiento DDS [address] [place] [address] Scheduled Referrals Name Type Priority Associated Diagnoses [...] documented as of this encounter Care Teams Second Cook And Baker Relationship Specialty Start Date End Date Nimisha Harley NP [address] [place] [address] PCP - General Family Medicine 11/03/24 documented as of this encounter
--- OUTSIDE RECORDS SUMMARY | 2025-07-15 18:28 | XMS_ITS | Encounter Summary ---
Author Organization [employer] Address [address] [facility] 7t [place] [address] Care Team Providers Care Machine Rug Cleaner Name Role Phone Nimisha Harley PANFILO Primary Care Provider [phone] Encounter Details Date Type Department Care Team ([facility] st Contact Info) Description 07/15/2025 Telephone [facility] [address] [place] [address] Yaima Reyna CNM [address] [place] [address] Social History Tobacco Use Types Packs/Day Years [...] encounter Miscellaneous Notes * Telephone Encounter - Kerri Melgoza MA - 07/15/2025 1:28 PM EDT Spoke qwith patient and schedule for 07/23/25 @ 10:15 am * Telephone Encounter - Kerri Melgoza MA - 07/15/2025 1:28 PM EDT ----- Message from Yaima Reyna sent at 07/09/2025 1:00 PM EDT ----- Regarding: HPV testing appt Please schedule Kacy for 15 min appt with me for HPV testing - thanks! documented in this encounter Plan of Treatment Upcoming Encounters Date Type Department Care Team (Late st Contact Info) Description 07/23/2025 10:15 AM EDT Office Visit [facility] [address] [place] [address] Yaima Reyna CNM [address] [place] [address] 08/18/2025 9:30 AM EDT Office Visit [facility] [address] [place] [address] Rachid Sarmiento DDS [address] [place] [address] documented as of this encounter Visit Diagnoses Not on filedocumented in this encounter Additional Health Concerns Assessment Noted Time PHQ-9 Depression Total Score: 12 025 2:33 PM EDT documented as of this encounter Care Teams Machine Rug Cleaner Relationship Specialty Start Date End Date Nimisha Harley NP [address] [place] [address] PCP - General Family Medicine 11/03/24 documented as of this encounter
--- OUTSIDE RECORDS SUMMARY | 2025-07-15 18:28 | XMS_ITS | Clinical Summary ---
Author Organization [employer] Address [address] [place] [address] 7t [place] [address] Care Team Providers Care Supervisory Lifeguard Name Role Phone Nimisha Harley PANFILO Primary Care Provider [phone] Allergies Active Allergy Reactions Criticality Noted Date Comments Food 11/26/2019 shellfish Iodinated Contrast Media 12/13/2023 Shellfish Allergy Rash Low 08/15/2022 Medications Nexplanon 68 MG contraceptive implant Inject 68 mg under the skin. 3 Active albuterol (Ventolin HFA) 108 (90 Base) MCG/ACT inhaler Inhale 2 puffs every 6 (six) hours if needed for wheezing. 18 g 1 5 Active Dymista 137-50 MCG/ACT suspensionIndicat ions:Allergic rhinitis, unspecified seasonality, unspecified trigger INSTILL 1 SPRAY IN EACH NOSTRIL TWICE DAILY 23 g 2 5 Active budesonide-formot yang (Symbicort) 80-4.5 MCG/ACT inhalerIndication s:Moderate persistent asthma, unspecified whether complicated Inhale 1 puff in the morning and at bedtime. Rinse mouth with water after use to reduce aftertaste and incidence of candidiasis. Do not swallow. 1 each 1 5 Active predniSONE (Deltasone) 20 MG tabletIndications :Acute midline low back pain with right-sided sciatica 2 tabs po daily for 5 days 10 tablet 5 Active ibuprofen 800 MG tabletIndications :Acute midline low back pain with right-sided sciatica Take 1 tablet (800 mg) by mouth every 8 (eight) hours if needed for moderate pain or fever. 30 tablet 5 07/23/20 25 Active cyclobenzaprine (Flexeril) 10 MG tabletIndications :Acute midline low back pain with right-sided sciatica Take 1 tablet (10 mg) by mouth 2 times daily for 20 days. 40 tablet Active acetaminophen (Tylenol) 325 MG capsuleIndication s:Acute midline low back pain with right-sided sciatica Take 1 capsule (325 mg) by mouth every 8 (eight) hours if needed for moderate pain or fever (pain). 30 capsule 5 07/23/20 25 Active Active Problems Problem Noted Date Diagnosed [...] Encounters Date Type Department Care Team Description 07/15/2025 Telephone [facility] [address] [place] [address] Yaima Reyna CNM 06/23/2025 1:00 PM EDT Office Visit [facility] [address] [place] [address] Nguyen Mendoza MD Acute midline low back pain with right-sided sciatica (Primary Dx) 06/23/2025 Telephone [facility] [address] [place] [address] Nimisha Harley NP 06/23/2025 Travel 06/11/2025 Telephone [facility] [address] [place] [address] Yaima Reyna CNM Appointment Request 06/06/2025 Refill [facility] [place] [address] Nimisha Harley NP Moderate persistent asthma, unspecified whether complicated 06/01/2025 9:45 AM EDT Office Visit [facility] [address] [facility] [place] [address] Jasvir Andradearis Gingivitis (Primary Dx); Gingival bleeding; Dental calculus 06/01/2025 9:00 AM EDT Office Visit [facility] [address] [place] [address] Rachid Sarmiento DDS Missing teeth, acquired (Primary Dx); Dental plaque; Dental calculus; Dental caries 06/01/2025 Travel 05/27/2025 9:15 AM EDT Office Visit [facility] [place] [address] Yaima Reyna CNM Family planning counseling (Primary Dx); Family history of ovarian cancer 05/27/2025 Travel 05/26/[address] [address] Yaima Reyna CNM CHART PREP 05/26/2025 Travel 05/22/[address] [address] Nimisha Harley NP Referral 05/12/2025 Orders Only [address] [address] Hilda Tellez MD Injury of left knee, subsequent encounter (Primary Dx) 05/08/2025 Results Follow-Up [facility] [address] [place] [address] Hilda Tellez MD MR Knee w/o Contrast Left 04/27/2025 1:00 PM EDT Office Visit [facility] [address] [place] [address] Nimisha Harley NP Injury of left knee, subsequent encounter (Primary Dx) 04/27/2025 Travel 04/27/2025 Refill [facility] [place] [address] Nimisha Harley NP Allergic rhinitis, unspecified seasonality, unspecified trigger from Last 3 Months Immunizations Immunization Administration [...] 04/27/2025 12:58 PM EDT Plan of Treatment Upcoming Encounters Date Type Department Care Team (Late st Contact Info) Description 07/23/2025 10:15 AM EDT Office Visit [facility] [address] [place] [address] Yaima Reyna, CNM [address] [place] [address] 08/18/2025 9:30 AM EDT Office Visit [facility] [address] [place] [address] Rachid Sarmiento, ANTHONYS [address] [place] [address] Health Maintenance Due Date Last Done Comments HIV Screening 1998 Hepatitis C Screening 2016 Pneumococcal Vaccine: Pediatrics (0 to 5 Years) and At-Risk Patients (6 to 49) Years (1 of 2 - PCV) 2017 Pap Smear 2019 COVID-19 Vaccine ( season) 2025 11/01/2021, 03/21/2021, 02/22/2021 Influenza Vaccine [...] EDT Injury of left knee, subsequent encounter from Last 3 Months Results * XR Lumbar Spine 2-3 Views (06/23/2025 1:21 PM EDT) Anatomical Region Laterality Modality Spine, L-spine Radiographic [place] ging 06/23/2025 1:21 PM EDT Narrative 06/23/2025 2:19 PM EDT [address] [address] XRay Report Signed Patient: Kacy Quarles MR#: [id number] : 2000 Acct:[id number] Age/Sex: 24 / F ADM Date: 06/23/25 Loc: [facility] Attending Dr: Nguyen Mendoza MD Ordering Physician: Nguyen Mendoza MD Date of Service: 06/23/25 Procedure(s): XR lumbar spine 2-3V Accession Number(s): [id number] cc: Nguyen Mendoza MD EXAMINATION: XR LUMBOSACRAL [...] 06/23/25 1416 DD/ 1321 TD/TT: 06/23/25 1400 Strand And Binder Controller: Procedure Note Donotuseinterpreter, Image - 06/23/[address] [address] XRay Report Signed Patient: Les Quarles#: [id number] : 2000Acct:[id number] Age/Sex: Date: 06/23/25 Loc: [facility] Attending Dr: Nguyen Mendoza MD Ordering Physician: Nguyen Mendoza MD Date of Service: 06/23/25 Procedure(s): XR lumbar spine 2-3V Accession Number(s): [id number] cc: Nguyen Mendoza MD EXAMINATION: XR LUMBOSACRAL [...] 06/23/25 1416 DD/ 1321 TD/TT: 06/23/25 1400 Strand And Binder Controller: us Nguyen Mendoza MD IMG XR PROCEDURES Final Re sult * MR Knee w/o Contrast Left (05/08/2025 11:30 AM EDT) Anatomical Region Laterality Modality Magnetic Resonan ce 05/08/2025 11:3 0 AM EDT Narrative 05/08/2025 11:31 AM EDT [place] [address] Magnetic Resonance Report Signed Patient: Kacy Quarles MR#: [id number] : 2000 Acct:[id number] Age/Sex: 24 / F ADM Date: 05/06/25 Loc: HO.MRI Attending Dr: Nimisha Harley NP Ordering Physician: Nimisha Harley NP Date of Service: 05/06/25 Procedure(s): MR knee LT wo con Accession Number(s): [id number] cc: Nimisha Harley NP CLINICAL HISTORY: left [...] 05/08/25 1131 DD/ 1130 TD/TT: 05/08/25 1130 Strand And Binder Controller: Procedure Note Donotuseinterpreter, Image - 05/08/[address] [address] Magnetic Resonance Report Signed Patient: Les Quarles#: [id number] : 2000Acct:[id number] Age/Sex: M Date: 05/06/25 Loc: HO.MRI Attending Dr: Nimisha Harley NP Ordering Physician: Nimisha Harley NP Date of Service: 05/06/25 Procedure(s): MR knee LT wo con Accession Number(s): [id number] cc: Nimisha Harley NP CLINICAL HISTORY: left [...] 05/08/25 1131 DD/ 1130 TD/TT: 05/08/25 1130 Strand And Binder Controller: us Nimisha Harley MANUFACTURING ENGINEER CHIEF IMG MRI PROCEDURES Final Result from Last 3 Months Insurance [facility] MEDICAID STAND ADULT Care Teams Supervisory Lifeguard Relationship Specialty Start Date End Date Nimisha Harley NP [address] [place] [address] PCP - General Family Medicine 11/03/24
== END 2025-07-15 16:24 | disposition home or self-care (01) ==
LOC: HO.HOS 14:55
PROVIDERS: PCP Nurse Practitioner Family; Visit Provider Physician Assistant
DX: M22.2X2 Patellofemoral disorders, left knee (principal)
CPT/HCPCS: 99203

== ENCOUNTER → 2025-07-15 14:57 | Outpatient (BNV) | payer MEDICAID, SELFPAY | PROVIDERS: Visit Provider Radiology Diagnostic Radiology | DX: M25.562 Pain in left knee (principal) | CPT/HCPCS: 73560 ==

== ENCOUNTER 2025-08-31 19:57 | Emergency (ER) | payer MEDICAID, SELFPAY ==
--- NOTE | ~2025-08-31 | CT_ITS ---
CLINICAL HISTORY: right sided headache CT head without contrast Comparison: None provided Findings: No intra-axial mass, midline shift, hydrocephalus, or acute hemorrhage. Moyer-white matter differentiation is preserved. The visualized paranasal sinuses and mastoid air cells are normal. The orbits are unremarkable. No skull fracture. IMPRESSION: 1. No acute intracranial findings. This document has been electronically signed by: Roxane Phillips MD on 09/01/2025 00:43:34
[2025-08-31 20:20] VITALS: BP 129/72; PULSE 76; RESP 16; TEMP 36.7; O2SAT 99; BMI 29.1
[2025-08-31 20:51] LABS: MANUAL DIFF FLAG NO
[2025-08-31 20:54] LABS: Hematocrit 40.1 % (37.0-47.0); Hemoglobin 13.1 g/dl (12.0-16.0); Imm Gran Abs Auto 0.02 X10*3/uL (0.00-0.03); Imm Gran Pct Auto 0.2 % (0.0-0.4); Lymphocytes Absolute Auto 4.0 X10*3/uL (1.2-4.9); Mean Corpuscular HGB Conc 32.7 g/dl (31.0-35.0); Mean Corpuscular Hemoglobin 29.9 pg (27.0-33.0); Mean Corpuscular Volume 91.6 fL (80.0-98.0); NRBC Abs Auto 0.000 X10*3/uL (0.0-0.012); NRBC Pct Auto 0.0 /100WBC (0.0-0.2); Platelet Count 357 X10*3/uL (160-400); Red Blood Count 4.38 X10*6/uL (4.20-5.50); White Blood Count 10.9 X10*3/uL (4.8-10.8)
[2025-08-31 21:06] LABS: Alanine Aminotransferase 23 U/L (0-31); Albumin Level 4.4 g/dL (3.5-5.0); Alkaline Phosphatase 77 U/L (39-117); Anion Gap 10 (12-20); Aspartate Amino Transferase 22 U/L (5-31); Blood Urea Nitrogen 12 mg/dL (9-16); Calcium 9.1 mg/dL (8.4-10.2); Carbon Dioxide 27 mmol/L (22-29); Chloride 108 mmol/L (96-108); Creatinine Clr Calc Pharmacy 126.7; Estimated Glomerular Filt Rate > 60; Potassium 3.3 mmol/L (3.3-5.1); Sodium 142 mmol/L (135-145); Total Protein 7.5 g/dL (6.5-8.0)
[2025-08-31 21:14] LABS: Magnesium 2.1 mg/dL (1.6-2.6)
--- OUTSIDE RECORDS SUMMARY | 2025-08-31 21:22 | XMS_ITS | Encounter Summary ---
Author Organization [facility] Address [address] [place] [phone] Phone Care Team Providers Care Sweet Pickled Fruit Maker Name Role Phone Tangela Moreno MD Primary Care Provider Unavailabl e Encounter Details Date Type Department Care Team ([facility] Contact Info) Description 03/17/2018 [facility]counter [facility] [address] [address] Yeimi Lester MD [address] [place] [address] Social History Tobacco Use Types Packs/Day Years [...] on filedocumented in this encounter Care Teams Sweet Pickled Fruit Maker Relationship Specialty Start Date End Date Tangela Moreno MD PCP - General 04/15/20 documented as of this encounter
--- OUTSIDE RECORDS SUMMARY | 2025-08-31 21:22 | XMS_ITS | Clinical Summary ---
Author Organization [facility] Address [address] [place] [address] Care Team Providers Care Correction Officer Name Role Phone Jyoti Gaspar Primary Care [...] Date Last Done Comments HIV Screening 2000 Pap Smear 1998 Varicella Vaccines (1 of 2 - 13+ 2-dose series) 2011 HPV Vaccines (1 - 3-dose series) 2013 Hepatitis B Vaccines (2 of 3 - 3-dose series) 08/15/2016 07/18/2016 Alcohol/Substance Use Screening 10/29/2024 COVID-19 Vaccine (2024- season) 2025 11/01/2021, 03/21/2021, 02/22/2021 Influenza Vaccine (#1) 2025 8, 09/05/2018, 07/19/2017, Additional history exists DTaP,Tdap,and Td Vaccines (2 - Td or Tdap) 09/05/2028 09/05/2018 RSV Vaccine (60+ years old and patients) (1 - 1-dose 75+ series) 2073 Pneumococcal Vaccine: Pediatric (0-5 Years) and At-Risk Patients (6-50 Years) Aged Out No longer eligible based on patient's age to complete this topic Insurance [place] [employer] on file Care Teams Correction Officer Relationship Specialty Start Date End Date Jyoti Gaspar PCP - General Internal Medicine 07/31/22
--- OUTSIDE RECORDS SUMMARY | 2025-08-31 21:22 | XMS_ITS | Clinical Summary ---
Author Organization [facility] Address [address] [place] [phone] Phone Care Team Providers Care Communications Executive Name Role Phone Tangela Moreno MD Primary [...] complete this topic Procedures * Due to [place] Novalact law, this organization might not be sharing sensitive test results. Procedure Name Priority Date/Time Associated Diagnosis Comments CHLAMYDIA AND GONORRHEA, AMPLIFIED Routine 07/23/2017 12:00 AM EDT from Last 3 Months or Most Recently Relevant to Health Maintenance Results * Due to [place] Novalact law, this organization might not be sharing [...] VALUE: NOT DETECTED) NOTE: This test uses head charger-mediated amplification method to detect rRNA from C.Trachomatis [...] without risk of sexual abuse. Consult the [facility] [place] if needed. Contact phone number . Therapeutic [...] Most Recently Relevant to Health Maintenance Insurance [facility] NON PCC Care Teams Communications Executive Relationship Specialty Start Date End Date Tangela Moreno MD PCP - General 04/15/20
--- OUTSIDE RECORDS SUMMARY | 2025-08-31 21:22 | XMS_ITS | Encounter Summary ---
Author Organization [employer] Address [address] [facility] [address] [place] [address] Care Team Providers Care Digital Photographer Name Role Phone Nimisha Harley PANFILO Primary Care Provider [phone] Encounter Details Date Type Department Care Team (Late st Contact Info) Description 08/31/2025 Orders Only GENERIC EXTERNAL DATA DEPARTMENT Provider, Generic External Data Social History Tobacco Use Types Packs/Day Years [...] Procedure Name Priority Date/Time Associated Diagnosis Comments CBC WITH AUTO DIFFERENTIAL Routine 08/31/2025 8:47 PM EST HCG, TOTAL, QN Routine 08/31/2025 8:47 PM EST MAGNESIUM Routine 08/31/2025 8:47 PM EST COMPREHENSIVE METABOLIC PANEL Routine 08/31/2025 8:47 PM EST documented in this encounter Results * hCG, Total, Quantitative (08/31/2025 8:47 PM EST) HCG Quantitative <2 mIU/mL [facility] Comment:Weeks post LMP Appro ximate hCG(Last Menstrual Period) Range (mIU/ml)3 - 4 weeks 9 - 1304 - 5 weeks 75 - 2,6005 - 6 weeks 850 - 20,8006 - 7 weeks 4000 - 100,2007 - 12 weeks 11,500 - 289,03883 - 16 weeks 18,300 - 137,26430 - 29 weeks (2nd trimester) 1,400 - 53,43974 - 41 weeks (3rd trimester) 940 - 60,000The Colon B- hCG assay is used for the early detection ofpregnancy; it cannot be used to diagnose any conditionunrelated to . If a B-hCG level is not supportedby the clinical evidence, results should be confirmed by analternative method (qualitative urine hCG, for example). 08/31/2025 8:47 PM EST 08/31/2025 8:50 PM EST us Generic External Data Provider LAB BLOOD ORDERAB LES Final Result Performing Organization Address City/[facility]/ZIP Co de Phone Number [facility] [address] [place] [address] [phone] * Magnesium (08/31/2025 8:47 PM EST) Magnesium 2.1 1.6 - 2.6 mg/dL [facility] 08/31/2025 8:47 PM EST 08/31/2025 8:50 PM EST Generic External Data Provider LAB BLOOD ORDERAB LES Final Result Performing Organization Address [facility] de Phone Number [facility] [address] [place] [address] [phone] * (ABNORMAL) Comprehensive Metabolic Panel (08/31/2025 8:47 PM EST) Pathologist [facility] Sodium 142 135 - 145 mmol/L [facility] Potassium 3.3 3.3 - 5.1 mmol/L [facility] Chloride 108 96 - 108 mmol/L [facility] Carbon Dioxide 27 22 - 29 mmol/L [facility] Anion Gap 10(L) 12 - 20 [facility] Urea Nitrogen (BUN) 12 9 - 16 mg/dL [facility] Creatinine, Serum 0.70 0.5 - 1.4 mg/dL [facility] Creatinine Clr Calc Pharmacy 126.7 [facility] Comment:Provided height and weight: 165.1 cm,79.379 kg.eGFR (calculated from the MDRD study equation) and eCrCl(calculated from the Cockcroft-Gault equation) are based ondifferent parameters and may not yield comparable results.If eCrCl result is absurd, please check patient'sheight/weight. Estimated Glomerular Filt Rate >60 [facility] Comment:Chronic Kidney Disea se: Estimated GFR < 60 mL/min/1.28x4Lwbyvj Kidney Disease: Estimated GFR < 15 mL/min/1.73m2 Glucose 102 60 - 115 mg/dL [facility] Calcium 9.1 8.4 - 10.2 mg/dL [facility] Bilirubin, Total 0.6 0.0 - 1.0 mg/dL [facility] Aspartate Amino Transferase 22 5 - 31 U/L [facility] Alanine Aminotransferase 23 0 - 31 U/L [facility] Total Protein 7.5 6.5 - 8.0 g/dL [facility] Albumin Level 4.4 3.5 - 5.0 g/dL [facility] Alkaline Phosphatase 77 39 - 117 U/L [facility] 08/31/2025 8:47 PM EST 08/31/2025 8:50 PM EST us Generic External Data Provider LAB BLOOD ORDERAB LES Final Result [facility] [address] [place] [phone] * (ABNORMAL) CBC auto differential (08/31/2025 8:47 PM EST) White Blood Count 10.9(H) 4.8 - 10.8 X10*3/uL [facility] Red Blood Count 4.38 4.20 - 5.50 X10*6/uL [facility] Hemoglobin 13.1 12.0 - 16.0 g/dl [facility] Hematocrit 40.1 37.0 - 47.0 % [facility] Mean Corpuscular Volume 91.6 80.0 - 98.0 fL [facility] Mean Corpuscular Hemoglobin 29.9 27.0 - 33.0 pg [facility] Mean Corpuscular HGB Conc 32.7 31.0 - 35.0 g/dl [facility] Red Cell Distribution Width 12.4 11.0 - 16.0 % [facility] Platelet Count 357 160 - 400 X10*3/uL [facility] Mean Platelet Volume 9.0(L) 9.4 - 12.3 fL [facility] Neutrophils Percent Auto 52.4 45 - 73 % [facility] Imm Gran Pct Auto 0.2 0.0 - 0.4 % [facility] Lymphocytes Percent Auto 36.2 20 - 40 % [facility] Monocytes Percent Auto 5.7 2 - 11 % [facility] Eosinophils Percent Auto 5.0(H) 0 - 4 % [facility] Basophils Percent Auto 0.5 0 - 2 % [facility] NRBC Pct Auto 0.0 0.0 - 0.2 /100WBC [facility] Neutrophils Absolute Auto 5.7 2.0 - 8.3 x10*3/uL [facility] Imm Gran Abs Auto 0.02 0.00 - 0.03 X10*3/uL [facility] Lymphocytes Absolute Auto 4.0 1.2 - 4.9 X10*3/uL [facility] Monocytes Absolute Auto 0.6 0.1 - 1.2 X10*3/uL [facility] Eosinophils Absolute Auto 0.5(H) 0.0 - 0.4 X10*3/uL [facility] Basophils Absolute Auto 0.1 0.0 - 0.2 X10*3/uL [facility] NRBC Abs Auto 0.000 0.0 - 0.012 X10*3/uL [facility] 08/31/2025 8:47 PM EST 08/31/2025 8:50 PM EST us Generic External Data Provider LAB BLOOD ORDERAB LES Final Result [facility] [address] [place] [address] [phone] documented in this encounter Visit Diagnoses Not on filedocumented in this encounter Additional Health Concerns Assessment Noted Time PHQ-9 Depression Total Score: 12 025 2:33 PM EDT documented as of this encounter Care Teams Digital Photographer Relationship Specialty Start Date End Date Nimisha Harley NP [address] [place] [phone] PCP - General Family Medicine 11/03/24 documented as of this encounter
--- OUTSIDE RECORDS SUMMARY | 2025-08-31 21:22 | XMS_ITS | Encounter Summary ---
Author Organization [employer] Address [address] [facility] 7 [place] [address] Care Team Providers Care Integrated Logistics Programs Director Name Role Phone Nimisha Harley NP Primary Care Provider [phone] Reason for Visit * Reason Onset Date Comments Med Refill 08/02/2025 Encounter Details Date Type Department Care Team ([facility] st Contact Info) Description 08/02/2025 Refill [facility] [address] [place] [address] Nimisha Harley NP [address] [place] [address] Moderate persistent asthma, unspecified whether complicated Social History Tobacco Use Types Packs/Day Years [...] your housing situation today? I have david hpan 02/03/[address] you li [...] as of this encounter Visit Diagnoses Diagnosis Moderate persistent asthma, unspecified whether complicated documented in this encounter Additional Health Concerns Assessment Noted Time PHQ-9 Depression Total Score: 12 025 2:33 PM EDT documented as of this encounter Care Teams Integrated Logistics Programs Director Relationship Specialty Start Date End Date Nimisha Harley NP [address] [place] [phone] PCP - General Family Medicine 11/03/24 documented as of this encounter
--- OUTSIDE RECORDS SUMMARY | 2025-08-31 21:23 | XMS_ITS | Clinical Summary ---
Author Organization [employer] Address [address] [place] [address] [address] [place] [address] Care Team Providers Care Oil Well Engineer Name Role Phone Nimisha Harley PANFILO Primary Care Provider [phone] Allergies Active Allergy Reactions Criticality Noted Date [...] for 5 days 10 tablet 5 Active cyclobenzaprine (Flexeril) 10 MG tabletIndications :Acute midline low back pain with right-sided sciatica Take 1 tablet (10 mg) by mouth 2 times daily for 20 days. 40 tablet 5 Active Active Problems Problem Noted Date Diagnosed [...] up in 1 month Bipolar 1 disorder ([facility]) 12/13/2023 Class 1 obesity 12/13/2023 Hair loss 12/13/2023 History of gestational diabetes 12/13/2023 Hypermobility of joint 12/13/2023 PTSD (post-traumatic stress disorder) 12/13/2023 Encounters Date Type Department Care Team Description 08/31/2025 Orders Only GENERIC EXTERNAL DATA DEPARTMENT Provider, Generic External Data 08/17/[address] [address] Yaima Reyna CNM chart prep 08/12/[address] [address] Nimisha Harley NP 08/02/[address] [address] Nimisha Harley NP Moderate persistent asthma, unspecified whether complicated 07/22/[address] [facility] [address] [place] [phone] Paloma Noe MA 07/15/[address] [facility] [address] [place] [phone] Yaima Reyna CNM 06/23/2025 1:00 PM EDT Office Visit [facility] [address] [place] [phone] Nguyen Mendoza MD Acute midline low back pain with right-sided sciatica (Primary Dx) 06/23/[address] [facility] [address] [place] [phone] Nimisha Harley PANFILO 06/23/2025 Travel 06/11/[address] [facility] [address] [place] [address] Yaima Reyna CNM Appointment Request 06/06/[address] [facility] [address] [place] [address] Nimisha Harley NP Moderate persistent asthma, unspecified whether complicated 06/01/2025 9:45 AM EDT Office Visit [facility] [address] [place] [address] LupeJessica Gingivitis (Primary Dx); Gingival bleeding; Dental calculus 06/01/2025 9:00 AM EDT Office Visit [facility] [address] [place] [address] Rachid Sarmiento DDS Missing teeth, acquired (Primary Dx); Dental plaque; Dental calculus; Dental caries 06/01/2025 Travel from Last 3 Months Immunizations Immunization Administration [...] Mother's Brother Lenin Drug abuse Mother's Brother Elnin Diabetes Mother's Sister 1 Dory Asthma Mother's [...] 11/01/2021, 03/21/2021, 02/22/2021 Influenza Vaccine (#1) 2025 3, 09/05/2018, 09/05/2018, Additional history exists Depression Monitoring [...] Procedure Name Priority Date/Time Associated Diagnosis Comments HCG, TOTAL, QN Routine 08/31/2025 8:47 PM EST MAGNESIUM Routine 08/31/2025 8:47 PM EST COMPREHENSIVE METABOLIC PANEL Routine 08/31/2025 8:47 PM EST CBC WITH AUTO DIFFERENTIAL Routine 08/31/2025 8:47 PM EST XR LUMBAR SPINE 2-3 VIEWS Routine 06/23/2025 [...] 1 EXTRACTION Routine 06/01/2025 12:00 AM EDT from Last 3 Months Results * (ABNORMAL) CBC auto differential (08/31/2025 8:47 PM EST) White Blood Count 10.9(H) 4.8 - 10.8 X10*3/uL [facility] Red Blood Count 4.38 4.20 - 5.50 X10*6/uL [facility] Hemoglobin 13.1 12.0 - 16.0 g/dl [facility] Hematocrit 40.1 37.0 - 47.0 % [facility] Mean Corpuscular Volume 91.6 80.0 - 98.0 fL [facility] Mean Corpuscular Hemoglobin 29.9 27.0 - 33.0 pg [facility] Mean Corpuscular HGB Conc 32.7 31.0 - 35.0 g/dl [facility] Red Cell Distribution Width 12.4 11.0 - 16.0 % [facility] Platelet Count 357 160 - 400 X10*3/uL [facility] Mean Platelet Volume 9.0(L) 9.4 - 12.3 fL [facility] Neutrophils Percent Auto 52.4 45 - 73 % [facility] Imm Gran Pct Auto 0.2 0.0 - 0.4 % [facility] Lymphocytes Percent Auto 36.2 20 - 40 % [facility] Monocytes Percent Auto 5.7 2 - 11 % [facility] Eosinophils Percent Auto 5.0(H) 0 - 4 % [facility] Basophils Percent Auto 0.5 0 - 2 % [facility] NRBC Pct Auto 0.0 0.0 - 0.2 /100WBC [facility] Neutrophils Absolute Auto 5.7 2.0 - 8.3 x10*3/uL [facility] Imm Gran Abs Auto 0.02 0.00 - 0.03 X10*3/uL [facility] Lymphocytes Absolute Auto 4.0 1.2 - 4.9 X10*3/uL [facility] Monocytes Absolute Auto 0.6 0.1 - 1.2 X10*3/uL [facility] Eosinophils Absolute Auto 0.5(H) 0.0 - 0.4 X10*3/uL [facility] Basophils Absolute Auto 0.1 0.0 - 0.2 X10*3/uL [facility] NRBC Abs Auto 0.000 0.0 - 0.012 X10*3/uL [facility] 08/31/2025 8:47 PM EST 08/31/2025 8:50 PM EST Generic External Data Provider LAB BLOOD ORDERAB LES Final Result Performing Organization Address City/[facility]/ZIP Co de Phone Number [facility] [address] [place] [phone] * hCG, Total, Quantitative (08/31/2025 8:47 PM EST) HCG Quantitative <2 mIU/mL [facility] Comment:Weeks post LMP Appro ximate hCG(Last Menstrual Period) Range (mIU/ml)3 - 4 weeks 9 - 1304 - 5 weeks 75 - 2,6005 - 6 weeks 850 - 20,8006 - 7 weeks 4000 - 100,2007 - 12 weeks 11,500 - 289,30657 - 16 weeks 18,300 - 137,79965 - 29 weeks (2nd trimester) 1,400 - 53,80694 - 41 weeks (3rd trimester) 940 - [...] ORDERAB LES Final Result Performing Organization Address [facility] Co de Phone Number [facility] [address] [place] [phone] * Magnesium (08/31/2025 8:47 PM EST) Magnesium 2.1 1.6 - 2.6 mg/dL [facility] 08/31/2025 8:47 PM EST 08/31/2025 8:50 PM EST us Generic External Data Provider LAB BLOOD ORDERAB LES Final Result [facility] [address] [place] [phone] * (ABNORMAL) Comprehensive Metabolic Panel (08/31/2025 8:47 PM EST) Sodium 142 135 - 145 mmol/L [facility] Potassium 3.3 3.3 - 5.1 mmol/L [facility] Chloride 108 96 - 108 mmol/L [facility] Carbon Dioxide 27 22 - 29 mmol/L [facility] Anion Gap 10(L) 12 - 20 [facility] Urea Nitrogen (BUN) 12 9 - 16 mg/dL [facility] Creatinine, Serum 0.70 0.5 - 1.4 mg/dL [facility] Creatinine Clr Calc Pharmacy 126.7 [facility] Comment:Provided height and weight: 165.1 cm,79.379 kg.eGFR (calculated from the MDRD study equation) and eCrCl(calculated from the Cockcroft-Gault equation) are based ondifferent parameters and may not yield comparable results.If eCrCl result is absurd, please check patient'sheight/weight. Estimated Glomerular Filt Rate >60 [facility] Comment:Chronic Kidney Disea se: Estimated GFR < 60 mL/min/1.12f4Uuumdu Kidney Disease: Estimated GFR < 15 mL/min/1.73m2 Glucose 102 60 - 115 mg/dL [facility] Calcium 9.1 8.4 - 10.2 mg/dL [facility] Bilirubin, Total 0.6 0.0 - 1.0 mg/dL [facility] Aspartate Amino Transferase 22 5 - 31 U/L [facility] Alanine Aminotransferase 23 0 - 31 U/L [facility] Total Protein 7.5 6.5 - 8.0 g/dL [facility] Albumin Level 4.4 3.5 - 5.0 g/dL [facility] Alkaline Phosphatase 77 39 - 117 U/L [facility] 08/31/2025 8:47 PM EST 08/31/2025 8:50 PM EST us Generic External Data Provider LAB BLOOD ORDERAB LES Final Result Performing Organization Address City/State/[facility] Co de Phone Number [facility] [address] [place] [phone] [phone] * XR Lumbar Spine 2-3 Views (06/23/2025 1:21 PM EDT) Anatomical Region Laterality Modality Spine, L-spine Radiographic [place] ging 06/23/2025 1:21 PM EDT Narrative 06/23/2025 2:19 PM EDT [address] [address] XRay Report Signed Patient: Kacy Quarles MR#: [id number] : 2000 Acct:[id number] Age/Sex: 24 / F ADM Date: 06/23/25 Loc: HO.HHCX Attending Dr: Nguyen Mendoza MD Ordering Physician: Nguyen Mendoza MD Date of Service: 06/23/25 Procedure(s): XR lumbar spine 2-3V Accession Number(s): [id number] cc: Nguyen Mendoza MD EXAMINATION: XR LUMBOSACRAL [...] 06/23/25 1416 DD/ 1321 TD/TT: 06/23/25 1400 Manager Style: Procedure Note Lottie, Image - 06/23/[address] [address] XRay Report Signed Patient: Les Quarles#: [id number] : 2000Acct:[id number] Age/Sex: M Date: 06/23/25 Loc: HO.HHCX Attending Dr: Nguyen Mendoza MD Ordering Physician: Nguyen Mendoza MD Date of Service: 06/23/25 Procedure(s): XR lumbar spine 2-3V Accession Number(s): [id number] cc: Nguyen Mendoza MD EXAMINATION: XR LUMBOSACRAL [...] 06/23/25 1416 DD/ 1321 TD/TT: 06/23/25 1400 Manager Style: Nguyen Mendoza MD IMG XR PROCEDURES Final Re sult from Last 3 Months Insurance [facility] AD[facility] Care Teams Oil Well Engineer Relationship Specialty Start Date End Date Nimisha Harley NP [address] [place] [phone] PCP - General Family Medicine 11/03/24
--- OUTSIDE RECORDS SUMMARY | 2025-08-31 21:23 | XMS_ITS | Encounter Summary ---
Author Organization [employer] Address [address] [place] [address] Care Team Providers Care Ice Cream Man Name Role Phone Nimisha Harley NP Primary Care Provider [phone] Reason for Referral * Consultation (Routine) - Closed Specialty Diagnoses / Procedures Referred By Mo t Referred To Contact Physical Therapy Diagnoses Injury of left knee, subsequent encounter iHlda Tellez MD [address] [place] [address] Phone: tel: fax: [facility] [address] [place] [address] Phone: tel: fax: Referral ID Status Reason Start Date Expiration Date V isits Requested Visits Authorized [id number] Closed Specialty Services Required 05/12/2025 05/12/2026 20 20 Encounter Details Date Type Department Care Team (Late st Contact Info) Description 05/12/2025 Orders Only [facility] [address] [place], [place] [phone] Hilda Tellez MD [address] [place], [place] [phone] Injury of left knee, subsequent encounter (Primary [...] documented as of this encounter Care Teams Ice Cream Man Relationship Specialty Start Date End Date Nimisha Harley NP [address] [place] [phone] PCP - General Family Medicine 11/03/24 documented as of this encounter
--- NOTE | 2025-08-31 22:48 | ED_ITS ---
HPI - General Adult General Chief complaint: Headache Stated complaint: rt sided headache pain going to neck Time Seen by Provider: 08/31/25 22:19 Source: patient, RN notes reviewed and old records reviewed Mode of arrival: ambulatory Limitations: no limitations History of Present Illness ED Provider: Rolan RONQUILLO narrative: 24-year-old female with a past medical history stem for Galdino-Danlos syndrome presents for evaluation of the headache. Patient reports that headache started this afternoon while she was at work She works out [employer] She reports that she had a stressful morning. She denies any history of similar headaches pain She complains of light sensitivity. Headache is mostly right-sided pain Her pain is 8/10. She denies any nausea, vomiting pain She is complaining of light sensitivity pain Denies any fevers, chills in the respiratory symptoms. No other complaints or concerns at this time Related Data Home Medications ?Medication ?Instructions ?Recorded ?Confirmed albuterol sulfate 90 mcg/actuation 2 puff inhalation Q 6H PRN wheezing 07/15/25 aerosol inhaler (Ventolin HFA) budesonide-formoterol HFA 80 1 puff inhalation 5 mcg-4.5 mcg/actuation aerosol inhaler (Symbicort) Previous Rx's ?Medication ?Instructions ?Recorded ibuprofen 800 mg tablet 800 mg PO Q8H PRN pain 30 da ys #90 07/15/25 tabs Allergies Allergy/AdvReac Type Severity Reaction Status Date / Time adhesive tape Allergy Rash Verified 08/31/25 20:24 bupropion (From Contrave) Allergy Anaphylaxis Verified 08/31/25 20:24 Iodinated Contrast Media (IV Allergy Anaphylaxis Verified 08/31/25 20:24 Contrast Dye) naltrexone (From Contrave) Allergy Anaphylaxis Verified 08/31/25 20:24 shellfish derived Allergy Anaphylaxis Verified 08/31/25 20:24 Review of Systems 2 Constitutional: Constitutional: Denies body ache(s), Denies chills, Denies fever(s), Denies frequent falls and Reports headache(s) Eyes: Eyes: Denies blurry vision, Denies irritation, Denies itchy eyes and Reports photophobia ENT: Denies vertigo, Denies dizziness and Reports headache(s) Cardiovascular: Cardiovascular: Denies chest pain and Denies dyspnea on exertion Respiratory: Respiratory: Denies cough and Denies dyspnea on exertion Gastrointestinal: Gastrointestinal: Denies abdominal pain, Denies nausea and Denies vomiting Musculoskeletal: Musculoskeletal: Denies back pain Integumentary/Breasts: Skin/Breast: Denies rash Neurologic: Denies vertigo, Denies dizziness, Denies frequent falls and Reports headache(s) Psychiatric: Psychiatric: Denies anxiety Allergic/Immunologic: Allergic/Immunologic: Denies itchy eyes PMFSH Social History Social History (Updated 07/15/25 @ 15:22 by СЕРГЕЙ Hannon) Patient Tobacco Use Status: Never used Tobacco Advance Directives: No Advance Directives Information Provided: Yes Current occupational status: employed Current occupation: [employer], left hand dominant Physical Exam ED Vital Signs: Vital Signs - 24 hr 08/31/25 20:20 08/31/25 23:10 Temperature 98.0 F 97.8 F Pulse Rate 76 58 Respiratory Rate 16 16 Blood Pressure 129/72 124/83 Pulse Oximetry 99 98 Oxygen Delivery Method Room Air Room Air BMI result Body Mass Index 29.1 Const General: healthy appearing, comfortable, no acute distress, alert and awake Nutritional Appearance: well nourished Orientation/consciousness: patient oriented x3 HENMT Head: Yes normocephalic and Yes atraumatic Eyes Eyelids: Yes eyelids normal Conjunctivae: conjunctivae normal Sclerae: sclerae normal Corneas: corneas normal Pupils: Equal, round and reactive pupils present EOM: EOMs intact bilaterally Direct Ophthalmoscopy: photophobia Neck Neck: Yes full ROM Resp Effort & Inspection: normal respiratory effort, able to speak in complete sentences, no audible wheezes and not labored Auscultation: clear to auscultation bilaterally Cardio Rate: regular rate Rhythm: regular rhythm Skin General skin exam: no rashes or lesions noted and elasticity normal Neuro General: patient oriented x3 Cranial nerves: Yes CN's II-XII intact bilaterally, Yes Equal, round and reactive pupils present and Yes Bilaterally intact EOM present Cognition (Neuro): normal cognition Extrem Other: Moving all extremities well without any obvious deformities Course Reevaluation(s) Reevaluation #1: The patient's CT scan resulted without any acute findings. The patient reports her headache has resolved when I went to discuss results with her. She will be discharged to follow up with outpatient providers Time: 00:54 Medications Administered Discontinued Medications Generic Name Dose Route Start Last Admin Trade Name Freq PRN Reason Stop Dose Admin Diphenhydramine HCl 25 mg 08/31/25 22:49 08/31/25 23:04 Diphenhydramine Hcl 25 Mg Capsule PO 08/31/25 22:50 25 mg ONCE ONE Administration Ketorolac Tromethamine 15 mg 08/31/25 22:49 08/31/25 23:04 Ketorolac Tromethamine 15 Mg/Ml Vial IM 08/31/25 22:50 15 mg ONCE ONE Administration Metoclopramide HCl 10 mg 08/31/25 22:49 08/31/25 23:04 Metoclopramide Hcl 10 Mg Tablet PO 08/31/25 22:50 10 mg ONCE ONE Administration Medical Decision Making Medical Decision Making [facility] Narrative: 24-year-old female with a past medical history significant for Galdino-Danlos syndrome presents for evaluation of a right-sided headache. She reports her headache came on gradually this afternoon and has been getting worse. She has some light sensitivity and lightheadedness. Denies any trauma to the head or neck, she is not anticoagulated. Denies any history of previous headaches. She denies any fevers, chills or viral symptoms. No signs of infectious process. Her neurologic in his benign. Given that she has a new headache we would like sensitivity had imaging of her head I ordered a CT scan of the brain. We will treat her headache with Toradol, Reglan Benadryl. Differential Diagnosis Differential Diagnoses: The differential diagnosis associated with the presentation includes Migraine headache Acute headache Tension headache Cluster headache Lab Data [facility] Lab Attestation statement: I reviewed the patient's lab results. Mild leukocytosis of 10.9 which is likely reactive. No significant anemia. Platelet count. No electrolyte abnormalities warranting intervention. 08/31/25 20:47 08/31/25 20:47 Labs: Lab Results 08/31/25 Range/Units 20:47 WBC 10.9 H (4.8-10.8) X10*3/uL RBC 4.38 (4.20-5.50) X10*6/uL Hgb 13.1 (12.0-16.0) g/dl Hct 40.1 (37.0-47.0) % MCV 91.6 (80.0-98.0) fL MCH 29.9 (27.0-33.0) pg MCHC 32.7 (31.0-35.0) g/dl RDW 12.4 (11.0-16.0) % Plt Count 357 (160-400) X10*3/uL MPV 9.0 L (9.4-12.3) fL Immature Gran % (Auto) 0.2 (0.0-0.4) % Neut % (Auto) 52.4 (45-73) % Lymph % (Auto) 36.2 (20-40) % [place] % (Auto) 5.7 (2-11) % Eos % (Auto) 5.0 H (0-4) % Baso % (Auto) 0.5 (0-2) % Lymph # (Auto) 4.0 (1.2-4.9) X10*3/uL [place] # (Auto) 0.6 (0.1-1.2) X10*3/uL Eos # (Auto) 0.5 H (0.0-0.4) X10*3/uL Baso # (Auto) 0.1 (0.0-0.2) X10*3/uL Abs Immat Gran (auto) 0.02 (0.00-0.03) X10*3/uL Absolute Neuts (auto) 5.7 (2.0-8.3) x10*3/uL Absolute Nucleated RBC 0.000 (0.0-0.012) X10*3/uL Nucleated RBC % (auto) 0.0 (0.0-0.2) /100WBC Sodium 142 (135-145) mmol/L Potassium 3.3 D (3.3-5.1) mmol/L Chloride 108 (96-108) mmol/L Carbon Dioxide 27 (22-29) mmol/L Anion Gap 10 L (12-20) BUN 12 (9-16) mg/dL Creatinine 0.70 (0.5-1.4) mg/dL Estim Creat Clear Calc 126.7 Estimated GFR > 60 Random Glucose 102 (60-115) mg/dL Calcium 9.1 (8.4-10.2) mg/dL Magnesium 2.1 (1.6-2.6) mg/dL Total Bilirubin 0.6 (0.0-1.0) mg/dL AST 22 (5-31) U/L ALT 23 (0-31) U/L Alkaline Phosphatase 77 (39-117) U/L Total Protein 7.5 (6.5-8.0) g/dL Albumin 4.4 (3.5-5.0) g/dL Beta HCG, Quant < 2 mIU/mL Discharge Plan Discharge Clinical Impression: Headache Patient Disposition: Home, Self-Care Instructions: Acute Headache (ED) Additional Instructions: Your CT scan and labs were reassuring You may use ibuprofen/Tylenol as needed for further headaches. Follow up with your primary doctor, return for new or worsening symptoms Prescriptions: No Action albuterol sulfate [Ventolin HFA] 90 mcg/actuation HFA aerosol inhaler 2 puff inhalation Q6H PRN (Reason: wheezing) budesonide-formoterol [Symbicort] 80-4.5 mcg/actuation HFA aerosol inhaler 1 puff inhalation ibuprofen 800 mg tablet 800 mg PO Q8H PRN (Reason: pain) 30 Days Qty: 90 3RF Print Language: Greenlandic
[2025-08-31 23:10] VITALS: BP 124/83; PULSE 58; RESP 16; TEMP 36.6; O2SAT 98
--- NOTE | 2025-08-31 23:11 | PC.NURSE ---
pt requested not to have IV, asked if meds can be given in pill form. ok with toradol IM. Jonathon BLACK made aware and meds ordered and given per mar by Kate LIZARRAGA.
[2025-09-01 01:09] VITALS: BP 124/83; PULSE 58; RESP 16; TEMP 36.6; O2SAT 98
== END 2025-09-01 01:10 | disposition home or self-care (01) ==
PROVIDERS: Emergency Provider Emergency Medicine; PCP Nurse Practitioner Family
DX: R51.9 Headache, unspecified (principal)
CPT/HCPCS: 36415; 70450; 80053; 83735; 84702; 85025; 96372; 99284; J1885

== ENCOUNTER → 2025-08-31 22:40 | Outpatient (BNV) | payer MEDICAID, SELFPAY | PROVIDERS: Emergency Provider Emergency Medicine; PCP Nurse Practitioner Family; Visit Provider Radiology Diagnostic Radiology | DX: R51.9 Headache, unspecified (principal) | CPT/HCPCS: 70450 ==

== ENCOUNTER 2025-09-07 15:35 | Outpatient (REF) | payer MEDICAID, SELFPAY ==
--- OUTSIDE RECORDS SUMMARY | 2025-09-07 15:00 | XMS_ITS | Encounter Summary ---
Author Organization [employer] Address [address] [place] [address] 7 [place] [address] Care Team Providers Care Chef Assistant Name Role Phone Nimisha Harley NP Primary Care Provider [phone] Reason for Referral * Imaging (STAT) - Pending Review Specialty Diagnoses / Procedures Referred By Contac t Referred To Contact Radiology Diagnoses Nonintractable episodic headache, unspecified headache type Abnormal pupillary function of both eyes Procedures MR Brain w/o Contrast Mai Downing ANP [address] [place] [address] Phone: tel: fax: Referral ID Status Reason Start Date Expiration Date V isits Requested Visits Authorized [id number] Pending Review 09/07/2025 09/07/2026 1 1 Encounter Details Date Type Department Care Team (Latest Contact Info) Description 09/07/2025 3:00 PM EST Office Visit [facility] [address] [place] [address] Mai Downing ANP [address] [place] [address] Nonintractable episodic headache, unspecified headache type (Primary Dx); Abnormal pupillary function of both eyes Social History Tobacco Use Types Packs/Day Years Used Date Smoking Tobacco: Former Cigarettes Q uit: 11/26/2017 Passive Smoke Exposure: Past Smokeless Tobacco: Former Tobacco Cessation:Counseling Given: Not Answered Alcohol Use Standard Drinks/Week Comments Yes 0 (1 standard drink = 0.6 oz pur e alcohol) socially Depression Answer Date Recorded Patient Health Questionnaire-9 Score 10 09/07/2025 Patient Health Questionnaire-9 Score 10 09/07/2025 Last PHQ-9: Questionnaire Data Not on file 1 11/07/2024 Housing Stability Answer Date Recorded What is [...] Answer Date Recorded Patient Health Questionnaire-2 Score 2 09/07/2025 Internet Access Answer Date Recorded Internet Access [...] Sign Reading Time Taken Comments Blood Pressure 120/62 09/07/2025 3:15 PM EST Pulse 57 09/07/2025 3:15 PM EST Temperature 36.4 C (97.5 F) 09/07/2025 3:15 PM EST Respiratory Rate 10 09/07/2025 3:15 PM EST Oxygen Saturation 98% 09/07/2025 3:15 PM EST Inhaled Oxygen Concentration - - Weight 79.4 kg (175 lb) 09/07/2025 3:15 PM EST Height 165.1 cm (5' 5 ) 09/07/2025 3:15 PM EST Body Mass Index 29.12 09/07/2025 3:15 PM EST documented in this encounter Functional Status * Over the past 2 weeks, how often have you been bothered by any of the following problems? Question Answer Date of Assessment Author Patient Health Questionnaire -2 Score 2 09/07/2025 3:54 PM EST Kerri Melgoza MA * Little interest or pleasure in doing things Answer Date of Assessment Author Several days 09/07/2025 3:54 PM EST Koe Melgoza MA * Feeling down, depressed, or hopeless Answer Date of Assessment Author Several days 09/07/2025 3:54 PM EST Keo Melgoza MA * Trouble falling or staying asleep, or sleeping too much Answer Date of Assessment Author Several days 09/07/2025 3:54 PM EST Keo Melgoza MA * Feeling tired or having little energy Answer Date of Assessment Author Several days 09/07/2025 3:54 PM EST Keo Melgoza MA * Poor appetite or overeating Answer Date of Assessment Author More than half the days 09/07/2025 3:54 PM EST Kerri Isabel MA * Feeling bad about yourself - or that you are a failure or have let yourself or your family down Answer Date of Assessment Author More than half the days 09/07/2025 3:54 PM EST Kerri Isabel MA * Trouble concentrating on things, such as reading the newspaper or watching television Answer Date of Assessment Author More than half the days 09/07/2025 3:54 PM EST Kerri Isabel MA * Moving or speaking so slowly that other people could have noticed? Or the opposite - being so fidgety or restless that you have been moving around a lot more than usual. Answer Date of Assessment Author Not at all 09/07/2025 3:54 PM EST Keo Melgoza MA * Thoughts that you would be better off or hurting yourself in some way Answer Date of Assessment Author Not at all 09/07/2025 3:54 PM EST Keo Melgoza MA * Patient Health Questionnaire-9 Score Answer Date of Assessment Author 10 09/07/2025 3:54 PM Keo Lyles MA * How difficult have these problems made it for you to do your work, take care of things at home, or get along with other people? Answer Date of Assessment Author Somewhat difficult 09/07/2025 3:54 PM Kerri Lyles MA documented as of this encounter Plan of Treatment Scheduled Orders Name Type Priority Associated Diagnoses Orde r Schedule Sed Rate by Modified [place] Lab Routine Nonintractable episodic headache, unspecified headache type Expected: 09/07/2025, Expires: 09/07/2026 C-reactive Protein Lab Routine Nonintractable episodic headache, unspecified headache type Expected: 09/07/2025 (Approximate), Expires: 09/07/2026 CBC auto differential Lab Routine Nonintractable episodic headache, unspecified headache type Expected: 09/07/2025 (Approximate), Expires: 09/07/2026 MR Brain w/o Contrast Imaging STAT Nonintractable episodic headache, unspecified headache type Abnormal pupillary function of both eyes Expected: 09/07/2025, Expires: 09/07/2026 documented as of this encounter Visit Diagnoses Diagnosis Nonintractable episodic headache, unspecified headache type- Primary Abnormal pupillary function of both eyes documented in this encounter Additional Health Concerns Assessment Noted Time PHQ-9 Depression Total Score: 025 3:54 PM EST documented as of this encounter Care Teams Chef Assistant Relationship Specialty Start Date End Date Nimisha Harley NP [address] [place] [address] PCP - General Family Medicine 11/03/24 documented as of this encounter
--- OUTSIDE RECORDS SUMMARY | 2025-09-07 17:40 | XMS_ITS | Clinical Summary ---
Author Organization [facility] Address [address] [place] [phone] Phone Care Team Providers Care Blacktop Paver Operator Name Role Phone Tangela Moreno MD Primary [...] complete this topic Procedures * Due to [place] [employer] law, this organization might not be sharing sensitive test results. Procedure Name Priority Date/Time Associated Diagnosis Comments CHLAMYDIA AND GONORRHEA, AMPLIFIED Routine 07/23/2017 12:00 AM EDT from Last 3 Months or Most Recently Relevant to Health Maintenance Results * Due to [place] [employer] law, this organization might not be sharing [...] VALUE: NOT DETECTED) NOTE: This test uses pigeon fancier-mediated amplification method to detect rRNA from C.Trachomatis [...] risk of sexual abuse. Consult the [facility] [place] if needed. Contact phone number . Therapeutic [...] Most Recently Relevant to Health Maintenance Insurance [facility] NON PCC Care Teams Blacktop Paver Operator Relationship Specialty Start Date End Date Tangela Moreno MD PCP - General 04/15/20
--- OUTSIDE RECORDS SUMMARY | 2025-09-07 17:40 | XMS_ITS | Encounter Summary ---
Author Organization [employer] Address [address] [facility] [address] [place] [address] Care Team Providers Care Slab Stripper Name Role Phone Ghislainekiki Nimisha PANFILO Primary Care Provider [phone] Encounter Details Date Type Department Care Team (Latest Contact Info) Description 09/07/2025 Travel Social History Tobacco Use Types Packs/Day [...] AM EST documented as of this encounter Functional Status * Over the [...] PM EST Keo Melgoza MA * Feeling down, depressed, or hopeless Answer Date of Assessment Author Several days 09/07/2025 3:54 PM EST Keo Melgoza MA * Trouble falling or staying asleep, or sleeping too much Answer Date of Assessment Author Several days 09/07/2025 3:54 PM Keo Lyles MA * Feeling tired or having little [...] than half the days 09/07/2025 3:54 PM Kerri Lemus MA * Trouble concentrating on things, such [...] Author Not at all 09/07/2025 3:54 PM Keo Lyles MA * Thoughts that you would be better off or hurting yourself in some way Answer Date of Assessment Author Not at all 09/07/2025 3:54 PM Keo Lyles MA * Patient Health Questionnaire-9 Score Answer [...] documented as of this encounter Care Teams Slab Stripper Relationship Specialty Start Date End Date Nimisha Harley NP [address] [place] [address] PCP - General Family Medicine 11/03/24 documented as of this encounter
--- OUTSIDE RECORDS SUMMARY | 2025-09-07 17:40 | XMS_ITS | Clinical Summary ---
Author Organization [employer] Address [address] [place] [address] 7[address] [place] [address] Care Team Providers Care E Commerce Developer Name Role Phone Nimisha Harley NP Primary Care Provider [phone] Allergies Active Allergy Reactions Criticality Noted Date [...] DAILY 23 g 2 5 Active budesonide-formot ayng (Symbicort) 80-4.5 MCG/ACT inhalerIndication s:Moderate persistent asthma, [...] daily for 20 days. 40 tablet Active SUMAtriptan (Imitrex) 25 MG tabletIndications :Nonintractable episodic headache, unspecified headache type Take 1 tablet (25 mg) by mouth 1 (one) time if needed for migraine. May repeat dose once in 2 hours if no relief. Do not exceed 2 doses in 24 hours. 9 tablet Active Active Problems Problem Noted Date Diagnosed [...] up in 1 month Bipolar 1 disorder ([facility]) 12/13/2023 Class 1 obesity 12/13/2023 Hair loss 12/13/2023 History of gestational diabetes 12/13/2023 Hypermobility of joint 12/13/2023 PTSD (post-traumatic stress disorder) 12/13/2023 Encounters Date Type Department Care Team Description 09/07/2025 3:00 PM EST Office Visit [address] [address] Mai Downing ANP Nonintractable episodic headache, unspecified headache type (Primary Dx); Abnormal pupillary function of both eyes 09/07/2025 Travel 09/07/[address] [address] Paulina Quezada, ZIA 08/31/2025 Orders Only GENERIC EXTERNAL DATA DEPARTMENT Provider, Generic External Data 08/17/[address] [address] Yaima Reyna CNM chart prep 08/12/[address] [address] Nimisha Harley NP 08/02/2025 Refill [address] [place] [address] Nimisha Harley NP Moderate persistent asthma, unspecified whether complicated 07/22/2025 Telephone [facility] [address] [place] [address] Dandre NoecyANGI 07/15/2025 Telephone [facility] MEDICINE [address] [place] [address] Yaima Reyna CNM 06/23/2025 1:00 PM EDT Office Visit [facility] WALK-IN [address] [address] Nguyen Mendoza MD Acute midline low back pain with right-sided sciatica (Primary Dx) 06/23/[address] [facility] [address] [address] Nimisha Harley NP 06/23/2025 Travel 06/11/2025 Telephone [facility] MEDICINE [address] [place] [address] [phone] Yaima Reyna CNM Appointment Request from Last 3 Months Immunizations [...] Mass Index 29.12 09/07/2025 3:15 PM EST Plan of Treatment Health Maintenance Due Date Last Done Comments HIV Screening 2000 Hepatitis C Screening 2016 Pneumococcal Vaccine: Pediatrics (0 to 5 Years) and At-Risk Patients (6 to 49) Years (1 of 2 - PCV) 2017 Pap Smear 2019 COVID-19 Vaccine ( season) 2025 11/01/2021, 03/21/2021, 02/22/2021 Influenza Vaccine (#1) 2025 , 09/05/2018, 09/05/2018, Additional history exists Dental Oral Exam 12/03/2025 06/01/2025 Dental Prophylaxis 12/03/2025 06/01/2025 Alcohol/Substance Use Screening 02/03/2026 02/03/2025 SDOH Screening 02/03/2026 02/03/2025 Depression Monitoring 03/07/2026 09/07/2025, 025 Disability Screening 05/27/2026 05/27/2025 Family Planning (PISQ) 05/27/2026 05/27/2025 Dental X-Ray: Bitewings 06/02/2026 06/01/2025, 12/13 Tobacco Screening 09/07/2026 09/07/2025 Dental X-Ray: Full Mouth 06/02/2028 06/01/2025, 12/28 [...] Procedure Name Priority Date/Time Associated Diagnosis Comments CT HEAD WO CONTRAST Routine 09/01/2025 1 2:43 AM EST HCG, TOTAL, QN Routine 08/31/2025 8:47 PM EST MAGNESIUM Routine 08/31/2025 8:47 PM EST COMPREHENSIVE METABOLIC PANEL Routine 08/31/2025 8:47 PM EST CBC WITH AUTO DIFFERENTIAL Routine 08/31/2025 8:47 PM EST XR LUMBAR SPINE 2-3 VIEWS Routine 06/23/2025 1:21 PM EDT Acute midline low back pain with right-sided sciatica PROPHYLAXIS - ADULT Routine 06/01/2025 9 :45 AM EDT Gingivitis Gingival bleeding Dental calculus INTRAORAL - COMPLETE SERIES OF RADIOGRAPHIC IMAGES Routine 06/01/2025 9:00 AM EDT COMPREHENSIVE ORAL EVALUATION - NEW OR ESTABLISHED PATIENT Routine 06/01/2025 9:00 AM EDT from Last 3 Months or Most Recently Relevant to Health Maintenance Results * CT Head w/o Contrast (09/01/2025 12:43 AM EST) Anatomical Region Laterality Modality Head, Neck Computed Tomogra phy 09/01/2025 12:4 3 AM EST Narrative 09/01/2025 12:46 AM EST [place] [address] [address] Scan Report Signed Patient: aKcy Quarles MR#: [id number] : 2000 Acct:[id number] Age/Sex: 24 / F ADM Date: 08/31/25 Loc: HO.ED Attending Dr: Ordering Physician: Jesse Gongora Date of Service: 08/31/25 Procedure(s): CT head/brain wo IV con Accession Number(s): [id number] cc: Nimisha Harley NARCOTICS AND VICE DETECTIVE; Jesse Gongora Report Number: [id number]: Total DLP = 596.00 mGy-cm Reason for Exam: right sided headache CLINICAL HISTORY: right sided headache CT head without contrast Comparison: None provided Findings: No intra-axial mass, midline shift, hydrocephalus, or acute hemorrhage. Moyer-white matter differentiation is preserved. The visualized paranasal sinuses and mastoid air cells are normal. The orbits are unremarkable. No skull fracture. IMPRESSION: 1. No acute intracranial findings. This document has been electronically signed by: Roxane Phillips MD on 09/01/2025 00:43:34 Dictated By: Roxane Phillips MD Signed By: <Electronically signed by Roxane Phillips MD in OV> 09/01/2544 DD/ TD/TT: 09/01/2542 Office Nurse: Procedure Note Donotuseinterpreter, Image - 09/01/[address] [place] [address] [address] Scan Report Signed Patient: Les Quarles#: [id number] : 2000Acct:[id number] Age/Sex: M Date: 08/31/25 Loc: HO.ED Attending Dr: Ordering Physician: eJsse Gongora Date of Service: 08/31/25 Procedure(s): CT head/brain wo IV con Accession Number(s): [id number] cc: Nimisha Harley NARCOTICS AND VICE DETECTIVE; Jesse Gongora Report Number: [id number]: Total DLP = 596.00 mGy-cm Reason for Exam: right sided headache CLINICAL HISTORY: right sided headache CT head without contrast Comparison: None provided Findings: No intra-axial mass, midline shift, hydrocephalus, or acute hemorrhage. Moyer-white matter differentiation is preserved. The visualized paranasal sinuses and mastoid air cells are normal. The orbits are unremarkable. No skull fracture. IMPRESSION: 1. No acute intracranial findings. This document has been electronically signed by: Roxane Phillips MD on 09/01/2025 00:43:34 Dictated By: Roxane Phillips MD Signed By: <Electronically signed by Roxane Phillips MD in OV> 09/01/2544 DD/ TD/TT: 09/01/25 0043 Office Nurse: [facility] External Provider IMG CT PROCEDURES Edited Result - Final * (ABNORMAL) CBC auto differential (08/31/2025 8:47 PM EST) White Blood Count 10.9(H) 4.8 - 10.8 X10*3/uL [facility] Red Blood Count 4.38 4.20 - 5.50 X10*6/uL [facility] Hemoglobin 13.1 12.0 - 16.0 g/dl [facility] Hematocrit 40.1 37.0 - 47.0 % [facility] Mean Corpuscular Volume 91.6 80.0 - 98.0 fL [facility] Mean Corpuscular Hemoglobin 29.9 27.0 - 33.0 pg [facility] Mean Corpuscular HGB Conc 32.7 31.0 - 35.0 g/dl [facility] Red Cell Distribution Width 12.4 11.0 - 16.0 % [facility] Platelet Count 357 160 - 400 X10*3/uL [facility] Mean Platelet Volume 9.0(L) 9.4 - 12.3 fL [facility] Neutrophils Percent Auto 52.4 45 - 73 % [facility] Imm Gran Pct Auto 0.2 0.0 - 0.4 % [facility] Lymphocytes Percent Auto 36.2 20 - 40 % [facility] Monocytes Percent Auto 5.7 2 - 11 % [facility] Eosinophils Percent Auto 5.0(H) 0 - 4 % [facility] Basophils Percent Auto 0.5 0 - 2 % [facility] NRBC Pct Auto 0.0 0.0 - 0.2 /100WBC [facility] Neutrophils Absolute Auto 5.7 2.0 - 8.3 x10*3/uL [facility] Imm Gran Abs Auto 0.02 0.00 - 0.03 X10*3/uL [facility] Lymphocytes Absolute Auto 4.0 1.2 - 4.9 X10*3/uL [facility] Monocytes Absolute Auto 0.6 0.1 - 1.2 X10*3/uL [facility] Eosinophils Absolute Auto 0.5(H) 0.0 - 0.4 X10*3/uL [facility] Basophils Absolute Auto 0.1 0.0 - 0.2 X10*3/uL [facility] NRBC Abs Auto 0.000 0.0 - 0.012 X10*3/uL [facility] 08/31/2025 8:47 PM EST 08/31/2025 8:50 PM EST Generic External Data Provider LAB BLOOD ORDERAB LES Final Result Performing Organization Address [facility] Co de Phone Number [facility] [address] [place] [phone] * hCG, Total, Quantitative (08/31/2025 8:47 PM EST) HCG Quantitative <2 mIU/mL [facility] Comment:Weeks post LMP Appro ximate hCG(Last Menstrual Period) Range (mIU/ml)3 - 4 weeks 9 - 1304 - 5 weeks 75 - 2,6005 - 6 weeks 850 - 20,8006 - 7 weeks 4000 - 100,2007 - 12 weeks 11,500 - 289,72852 - 16 weeks 18,300 - 137,31649 - 29 weeks (2nd trimester) 1,400 - 53,11099 - 41 weeks (3rd trimester) 940 - [...] ORDERAB LES Final Result Performing Organization Address [facility] Co de Phone Number [facility] [address] [place] [phone] * Magnesium (08/31/2025 8:47 PM EST) Magnesium 2.1 1.6 - 2.6 mg/dL [facility] 08/31/2025 8:47 PM EST 08/31/2025 8:50 PM EST us Generic External Data Provider LAB BLOOD ORDERAB LES Final Result [facility] [address] [place] [phone] * (ABNORMAL) Comprehensive Metabolic Panel (08/31/2025 8:47 PM EST) Sodium 142 135 - 145 mmol/L [facility] Potassium 3.3 3.3 - 5.1 mmol/L [facility] Chloride 108 96 - 108 mmol/L [facility] Carbon Dioxide 27 22 - 29 mmol/L [facility] Anion Gap 10(L) 12 - 20 [facility] Urea Nitrogen (BUN) 12 9 - 16 mg/dL [facility] Creatinine, Serum 0.70 0.5 - 1.4 mg/dL [facility] Creatinine Clr Calc Pharmacy 126.7 [facility] Comment:Provided height and weight: 165.1 cm,79.379 kg.eGFR (calculated from the MDRD study equation) and eCrCl(calculated from the Cockcroft-Gault equation) are based ondifferent parameters and may not yield comparable results.If eCrCl result is absurd, please check patient'sheight/weight. Estimated Glomerular Filt Rate >60 [facility] Comment:Chronic Kidney Disea se: Estimated GFR < 60 mL/min/1.46w4Gchptq Kidney Disease: Estimated GFR < 15 mL/min/1.73m2 Glucose 102 60 - 115 mg/dL [facility] Calcium 9.1 8.4 - 10.2 mg/dL [facility] Bilirubin, Total 0.6 0.0 - 1.0 mg/dL [facility] Aspartate Amino Transferase 22 5 - 31 U/L [facility] Alanine Aminotransferase 23 0 - 31 U/L [facility] Total Protein 7.5 6.5 - 8.0 g/dL [facility] Albumin Level 4.4 3.5 - 5.0 g/dL [facility] Alkaline Phosphatase 77 39 - 117 U/L [facility] 08/31/2025 8:47 PM EST 08/31/2025 8:50 PM EST us Generic External Data Provider LAB BLOOD ORDERAB LES Final Result Performing Organization Address City/State/[facility] Co de Phone Number [facility] [address] [place] [phone] * XR Lumbar Spine 2-3 Views (06/23/2025 1:21 PM EDT) Anatomical Region Laterality Modality Spine, L-spine Radiographic [place] ging 06/23/2025 1:21 PM EDT Narrative 06/23/2025 2:19 PM EDT [facility] [address] [place] [address] XRay Report Signed Patient: Kacy Quarles MR#: [id number] : 2000 Acct:[id number] Age/Sex: 24 / F ADM Date: 06/23/25 Loc: HO.HHCX Attending Dr: Nguyen Mendoza MD Ordering Physician: Nguyen Mendoza MD Date of Service: 06/23/25 Procedure(s): XR lumbar spine 2-3V Accession Number(s): [id number] cc: Nguyen Mendoza MD EXAMINATION: XR LUMBOSACRAL [...] 06/23/25 1416 DD/ 1321 TD/TT: 06/23/25 1400 Office Nurse: Procedure Note Donotuseinterpreter, Image - 06/23/[address] [address] XRay Report Signed Patient: Les Quarles#: [id number] : 2000Acct:[id number] Age/Sex: Date: 06/23/25 Loc: HO.HHCX Attending Dr: Nguyen Mendoza MD Ordering Physician: Nguyen Mendoza MD Date of Service: 06/23/25 Procedure(s): XR lumbar spine 2-3V Accession Number(s): [id number] cc: Nguyen Mendoza MD EXAMINATION: XR LUMBOSACRAL [...] 06/23/25 1416 DD/ 1321 TD/TT: 06/23/25 1400 Office Nurse: Nguyen Mendoza MD IMG XR PROCEDURES Final Re sult from Last 3 Months Insurance [place] [facility] MED[facility] STAND ADULT Care Teams E Commerce Developer Relationship Specialty Start Date End Date Nimisha Harley NP [address] [place] [phone] PCP - General Family Medicine 11/03/24
--- OUTSIDE RECORDS SUMMARY | 2025-09-07 17:40 | XMS_ITS | Encounter Summary ---
Author Organization [facility] Address [address] [place] [phone] Phone Care Team Providers Care Wash Mill Operator Name Role Phone Tangela Moreno MD Primary Care Provider Unavailabl e Encounter Details Date Type Department Care Team ([facility] Contact Info) Description 03/17/2018 [facility]version [facility]counter [facility] [address] [address] Yeimi Lester MD [address] [place] [address] Social History Tobacco Use Types Packs/Day Years [...] on filedocumented in this encounter Care Teams Wash Mill Operator Relationship Specialty Start Date End Date Tangela Moreno MD PCP - General 04/15/20 documented as of this encounter
--- OUTSIDE RECORDS SUMMARY | 2025-09-07 17:40 | XMS_ITS | Clinical Summary ---
Author Organization [facility] Address [address] [place] [address] Care Team Providers Care Medical Sales Name Role Phone Jyoti Gaspar Primary Care [...] Insurance [place] on [place] Care Teams Medical Sales Relationship Specialty Start Date End Date Jyoti Gaspar PCP - General Internal Medicine 07/31/22
--- OUTSIDE RECORDS SUMMARY | 2025-09-07 17:40 | XMS_ITS | Encounter Summary ---
Author Organization [employer] Address [address] [facility] 7t [place] [address] Care Team Providers Care Afloat Cryptologic Manager Name Role Phone Nimisha Harley NP Primary Care Provider [phone] Encounter Details Date Type Department Care Team ([facility] st Contact Info) Description 09/07/2025 Telephone [facility] MEDICINE [address] [place] [address] Paulina Quezada RN Social History Tobacco Use Types Packs/Day Years [...] encounter Miscellaneous Notes * Telephone Encounter - Paulina Quezada RN - 09/07/2025 9:27 AM EST Tc to pt to do status check for discharge from [facility] for right sided headaches. Pt reports they feel a lot better but is still experiencing the sensitivity to the light. Pt states they were taking otc ibuprofen. Tylenol per ED hospitalist recommendations but stopped taking them due to no pain relief.Pt reports their current headache is about an 2/10. Pt denies any chests or shortness of breath. Ptdenies of any recent sickness or injury.Pt reports they are more concerned about their eyes and thesensitivity that's tigering their headache. Pt offered a sick on site appointment wit Mai Downing NPand pt agreed with plan. Pt advised if symptoms worsens prior to appointment to return back to ED to be evaluated. ED precautions reviewed and pt verbalized understanding. documented in this encounter Plan of Treatment Not on file documented as of this encounter Visit Diagnoses Not on filedocumented in this encounter Additional Health Concerns Assessment Noted Time PHQ-9 Depression Total Score: 10 025 3:54 PM EST documented as of this encounter Care Teams Afloat Cryptologic Manager Relationship Specialty Start Date End Date Nimisha Harley NP [address] [place] [address] PCP - General Family Medicine 11/03/24 documented as of this encounter
--- OUTSIDE RECORDS SUMMARY | 2025-09-07 17:40 | XMS_ITS | Encounter Summary ---
Author Organization [employer] Address [address] [facility] 7 [place] [address] Care Team Providers Care Diet Clerk Name Role Phone Nimisha Harley NP Primary Care Provider [phone] Reason for Visit * Reason Onset Date Comments Med Refill 08/02/2025 Encounter Details Date Type Department Care Team ([facility] st Contact Info) Description 08/02/2025 Refill [facility] MEDICINE [address] [place] [address] Nimisha Harley NP [address] [place] [address] Moderate persistent asthma, unspecified whether complicated Social [...] documented as of this encounter Care Teams Diet Clerk Relationship Specialty Start Date End Date Nimisha Harley NP [address] [place] [address] PCP - General Family Medicine 11/03/24 documented as of this encounter
--- OUTSIDE RECORDS SUMMARY | 2025-09-07 17:40 | XMS_ITS | Encounter Summary ---
Author Organization [employer] Address 75 [facility] 7t [place] [address] Care Team Providers Care Shipping And Receiving Associate Name Role Phone Nimisha Harley NP Primary Care Provider [phone] Reason for Referral * Consultation (Routine) - Closed Specialty Diagnoses / Procedures Referred By Contac t Referred To Contact Physical Therapy Diagnoses Injury of left knee, subsequent encounter Hilda Tellez MD [address] [place] [address] Phone: tel: fax: [facility] Physical Therapy [address] [place], [place] Phone: tel: fax: Referral ID Status Reason Start Date Expiration Date V isits Requested Visits Authorized [id number] Closed Specialty Services Required 05/12/2025 05/12/2026 20 20 Encounter Details Date Type Department Care Team (Late st Contact Info) Description 05/12/2025 Orders Only [facility] MEDICINE [address] [place], [place] [phone] Hilda Tellez MD [address] [place], [place] [phone] Injury of left knee, subsequent encounter (Primary [...] documented as of this encounter Care Teams Shipping And Receiving Associate Relationship Specialty Start Date End Date Nimisha Harley NP [address] [place] [address] PCP - General Family Medicine 11/03/24 documented as of this encounter
[2025-09-07 18:11] LABS: MANUAL DIFF FLAG NO
[2025-09-07 18:42] LABS: Hematocrit 40.5 % (37.0-47.0); Hemoglobin 13.2 g/dl (12.0-16.0); Imm Gran Abs Auto 0.01 X10*3/uL (0.00-0.03); Imm Gran Pct Auto 0.1 % (0.0-0.4); Lymphocytes Absolute Auto 3.1 X10*3/uL (1.2-4.9); Mean Corpuscular HGB Conc 32.6 g/dl (31.0-35.0); Mean Corpuscular Hemoglobin 30.0 pg (27.0-33.0); Mean Corpuscular Volume 92.0 fL (80.0-98.0); NRBC Abs Auto 0.000 X10*3/uL (0.0-0.012); NRBC Pct Auto 0.0 /100WBC (0.0-0.2); Platelet Count 364 X10*3/uL (160-400); Red Blood Count 4.40 X10*6/uL (4.20-5.50); White Blood Count 8.7 X10*3/uL (4.8-10.8)
== END 2025-09-07 15:36 | disposition home or self-care (01) ==
LOC: HO.HHCL 15:35
PROVIDERS: PCP Nurse Practitioner Family; Visit Provider Nurse Practitioner Primary Care
DX: R51.9 Headache, unspecified (principal)
CPT/HCPCS: 36415; 85025; 85652; 86140

== ENCOUNTER → 2025-10-24 10:35 | Outpatient (BNV) | payer MEDICAID, SELFPAY | PROVIDERS: PCP Nurse Practitioner Family; Visit Provider Specialist | DX: R51.9 Headache, unspecified (principal); H53.149 Visual discomfort, unspecified | CPT/HCPCS: 70551 ==

== ENCOUNTER 2025-10-24 10:38 | Outpatient (REF) | payer MEDICAID, SELFPAY ==
--- NOTE | ~2025-10-24 | MR_ITS ---
CLINICAL HISTORY: abnormal pupillary constriction, R sided BOWEN, negative head CT MR Brain without gadolinium Comparison: CT head 08/31/2025 Findings: No restricted diffusion. No intra-axial mass or hemorrhage. No midline shift. No hydrocephalus. Vascular flow voids are intact. The orbits are normal. The sinuses and mastoid air cells are clear. No focal bone lesion. IMPRESSION: No acute findings. This document has been electronically signed by: Micheal Herr MD on 10/24/2025 11:32:21
--- OUTSIDE RECORDS SUMMARY | 2025-10-24 10:42 | XMS_ITS | Encounter Summary ---
Author Organization [email or web address] Address [address] [facility] 7 [place] [address] Care Team Providers Care Operations Systems Specialist Name Role Phone Cherri Nimisha WHITTAKER Primary Care Provider [phone] Encounter Details Date Type Department Care Team (Latest Contact Info) Description 09/08/2025 Results Follow-Up [facility] MEDICINE [address] [place] [address] Mai Downing ANP [address] [place] [address] Sed Rate by Modified Westergren, C-reactive Protein, CBC auto differential Social History Tobacco Use Types Packs/Day Years [...] as of this encounter Miscellaneous Notes * Result Encounter Note - DANITZA Dover - 09/08/2025 12:30 PM EST Hi Kacy, These labs are essentially normal, many people have small abnormalities that are not clinically significant. The eosinophils are mildly elevated likely due to allergies. Please call our office if you have any questions. Por favor llame a la oficina si tiene preguntas. Take care, Cu??Mai disla MATERIAL INSPECTOR documented in this encounter Plan of Treatment Not on file documented as of this encounter Visit Diagnoses Not on filedocumented in this encounter Additional Health Concerns Assessment Noted Time PHQ-9 Depression Total Score: 10 025 3:54 PM EST documented as of this encounter Care Teams Operations Systems Specialist Relationship Specialty Start Date End Date Nimisha Harley NP [address] [place] [address] PCP - General Family Medicine 11/03/24 documented as of this encounter
--- OUTSIDE RECORDS SUMMARY | 2025-10-24 10:42 | XMS_ITS | Clinical Summary ---
Author Organization [facility] Address [address] [place] [address] Care Team Providers Care Full Time Paramedic Name Role Phone Jyoti Gaspar Primary Care [...] series) 08/15/2016 07/18/2016 Alcohol/Substance Use Screening 10/29/2024 Influenza Vaccine (#1) 2025 8, 09/05/2018, 07/19/2017, Additional history exists COVID-19 Vaccine (2024- season) 2025 11/01/2021, 03/21/2021, 02/22/2021 DTaP,Tdap,and Td Vaccines (2 - Td or Tdap) 09/05/2028 09/05/2018 Pneumococcal Vaccine: Pediatric (0-5 Years) and At-Risk Patients (6-50 Years) Aged Out No longer eligible based on patient's age to complete this topic Insurance [place] [employer] on file Care Teams Full Time Paramedic Relationship Specialty Start Date End Date Jyoti Gaspar PCP - General Internal Medicine 07/31/22
--- OUTSIDE RECORDS SUMMARY | 2025-10-24 10:42 | XMS_ITS | Clinical Summary ---
Author Organization [facility] Address [address] [place] [address] Phone Care Team Providers Care Plant Maintenance Mechanic Name Role Phone Tangela Moreno MD Primary [...] complete this topic Procedures * Due to [place] [employer] law, this organization might not be sharing sensitive test results. Procedure Name Priority Date/Time Associated Diagnosis Comments CHLAMYDIA AND GONORRHEA, AMPLIFIED Routine 07/23/2017 12:00 AM EDT from Last 3 Months or Most Recently Relevant to Health Maintenance Results * Due to [place] [employer] law, this organization might not be sharing [...] VALUE: NOT DETECTED) NOTE: This test uses butt sawyer-mediated amplification method to detect rRNA from C.Trachomatis [...] without risk of sexual abuse. Consult the [facility] if needed. Contact phone number . Therapeutic [...] Health Maintenance Insurance [facility] Care Teams Plant Maintenance Mechanic Relationship Specialty Start Date End Date Tangela Moreno MD PCP - General 04/15/20
--- OUTSIDE RECORDS SUMMARY | 2025-10-24 10:42 | XMS_ITS | Clinical Summary ---
Author Organization [employer] Address [address] [place] [address] 7t [place] [address] Care Team Providers Care Survey Instrument Operator Name Role Phone Nimisha Harley NP Primary Care Provider [phone] Allergies Active Allergy Reactions Criticality Noted Date [...] up in 1 month Bipolar 1 disorder ([facility]) 12/13/2023 Class 1 obesity 12/13/2023 Hair loss 12/13/2023 History of gestational diabetes 12/13/2023 Hypermobility of joint 12/13/2023 PTSD (post-traumatic stress disorder) 12/13/2023 Encounters Date Type Department Care Team Description 09/23/[address] [address] Nimisha Harley NP November09/08/2025 Results Follow-Up [address] [address] Mai Downing ANP Sed Rate by Modified Westergren, C-reactive Protein, CBC auto differential 09/07/2025 3:00 PM EST Office Visit [address] [address] Mai Downing ANP Nonintractable episodic headache, unspecified headache type (Primary Dx); Abnormal pupillary function of both eyes 09/07/2025 Travel 09/07/[address] [address] Paulina Quezada RN 08/31/2025 Orders Only GENERIC EXTERNAL DATA DEPARTMENT Provider, Generic External Data 08/17/2025 Telephone [facility] MEDICINE [address] [place] [address] Yaima Reyna CNM chart prep 08/12/2025 Telephone [facility] MEDICINE [address] [place] [address] Nimisha Harley, PANFILO 08/02/2025 Refill [facility] MEDICINE [address] [place], [place] [phone] Nimisha Harley NP Moderate persistent asthma, unspecified whether complicated from Last 3 Months Immunizations Immunization Administration [...] Meningococcal MCV4P ACYW-135 04/09/2015,09/07/20 10 Rotavirus Pentavalent (3 dose) 03/30/1999,1998 Tdap 08/13/2023, 2,09/05/2018,09/07 Varicella 05/07/2008,12/05/1999 Family History Medical History Relation Name Comments Diabetes Father Jose Hypertension Father Jose Lung cancer Maternal Grandfather Lenin Hypertension Maternal Grandmother Liliana Ovarian cancer Maternal Grandmother Liliana Diabetes Mother Roberta Hypertension Mother Roberta Asthma Mother's Brother Lenin Drug abuse Mother's Brother Lenin Diabetes Mother's Sister 1 Dory Asthma Mother's Sister 2 Viviana Depression Mother's Sister 2 Viviaan Diabetes Mother's Sister 3 Doyr Relation Name Status Comments Father Jose Maternal [...] 09/07/2026 09/07/2025 Dental X-Ray: Full Mouth 06/02/2028 025, 05/09/2024, 01/16/2024 DTaP/Tdap/Td Vaccines (10 - Td or [...] Diagnosis Comments CBC WITH AUTO DIFFERENTIAL Routine 09/07/2025 3:38 PM EST Nonintractable episodic headache, unspecified headache type C-REACTIVE PROTEIN Routine 09/07/2025 3: 38 PM EST Nonintractable episodic headache, unspecified headache type SED RATE BY MODIFIED WESTERGREN Routine 09/07/2025 3:38 PM EST Nonintractable episodic headache, unspecified headache type CT HEAD WO CONTRAST Routine 09/01/2025 1 2:43 AM EST HCG, TOTAL, QN Routine 08/31/2025 8:47 PM EST MAGNESIUM Routine 08/31/2025 8:47 PM EST COMPREHENSIVE METABOLIC PANEL Routine 08/31/2025 8:47 PM EST CBC WITH AUTO DIFFERENTIAL Routine 08/31/2025 8:47 PM EST PROPHYLAXIS - ADULT Routine 06/01/2025 9 :45 AM EDT Gingivitis Gingival bleeding Dental calculus INTRAORAL - COMPLETE SERIES OF RADIOGRAPHIC IMAGES Routine 06/01/2025 9:00 AM EDT COMPREHENSIVE ORAL EVALUATION - NEW OR ESTABLISHED PATIENT Routine 06/01/2025 9:00 AM EDT from Last 3 Months or Most Recently Relevant to Health Maintenance Results * (ABNORMAL) CBC auto differential (09/07/2025 3:38 PM EST) Only the most recent of2 resultswithin the time period is included. White Blood Count 8.7 4.8 - 10.8 X10*3/uL [facility] Red Blood Count 4.40 4.20 - 5.50 X10*6/uL [facility] Hemoglobin 13.2 12.0 - 16.0 g/dl [facility] Hematocrit 40.5 37.0 - 47.0 % [facility] Mean Corpuscular Volume 92.0 80.0 - 98.0 fL [facility] Mean Corpuscular Hemoglobin 30.0 27.0 - 33.0 pg [facility] Mean Corpuscular HGB Conc 32.6 31.0 - 35.0 g/dl [facility] Red Cell Distribution Width 12.2 11.0 - 16.0 % [facility] Platelet Count 364 160 - 400 X10*3/uL [facility] Mean Platelet Volume 9.4 9.4 - 12.3 fL [facility] Neutrophils Percent Auto 52.5 45 - 73 % [facility] Imm Gran Pct Auto 0.1 0.0 - 0.4 % [facility] Lymphocytes Percent Auto 35.0 20 - 40 % [facility] Monocytes Percent Auto 5.7 2 - 11 % [facility] Eosinophils Percent Auto 6.1(H) 0 - 4 % [facility] Basophils Percent Auto 0.6 0 - 2 % [facility] NRBC Pct Auto 0.0 0.0 - 0.2 /100WBC [facility] Neutrophils Absolute Auto 4.6 2.0 - 8.3 x10*3/uL [facility] Imm Gran Abs Auto 0.01 0.00 - 0.03 X10*3/uL [facility] Lymphocytes Absolute Auto 3.1 1.2 - 4.9 X10*3/uL [facility] Monocytes Absolute Auto 0.5 0.1 - 1.2 X10*3/uL [facility] Eosinophils Absolute Auto 0.5(H) 0.0 - 0.4 X10*3/uL [facility] Basophils Absolute Auto 0.1 0.0 - 0.2 X10*3/uL [facility] NRBC Abs Auto 0.000 0.0 - 0.012 X10*3/uL [facility] Blood Venous blood specimen / Unknown 09/07/2025 3:38 PM EST 09/07/2025 6:05 PM EST Mai [facility] LAB BLOOD ORDERABLES Final Resul t [facility] [address] [place] [phone] * Sed Rate by Modified Khari (09/07/2025 3:38 PM EST) Erythrocyte Sedimentation Rate 12 0 - 20 MM/HR [facility] Comment:Patients with polycy themia and many hemoglobin abnormalitiesmay have depressed sed rates whereas patients with anemiamay have elevated sed rates. Blood Venous blood specimen / Unknown 09/07/2025 3:38 PM EST 09/07/2025 6:05 PM EST Mai Downing ANP LAB BLOOD ORDERABLES Final Resul t Performing Organization Address [facility] Co de Phone Number [facility] [address] [place] [phone] * C-reactive Protein (09/07/2025 3:38 PM EST) C Reactive Protein 0.19 < or = 0.50 mg/dL [facility] Blood Venous blood specimen / Unknown 09/07/2025 3:38 PM EST 09/07/2025 6:05 PM EST Mai Downing [facility] LAB BLOOD ORDERABLES Final Resul t Performing Organization Address [facility] de Phone Number [facility] [address] [place] [phone] * CT Head w/o Contrast (09/01/2025 12:43 AM EST) Anatomical Region Laterality Modality Head, Neck Computed Tomogra phy 09/01/2025 12:4 3 AM EST Narrative 09/01/2025 12:46 AM EST [address] [address] [address] Scan Report Signed Patient: Kacy Quarles MR#: [id number] : 2000 Acct:[id number] Age/Sex: 24 / F ADM Date: 08/31/25 Loc: HO.ED Attending Dr: Ordering Physician: Jesse Gongora Date of Service: 08/31/25 Procedure(s): CT head/brain wo IV con Accession Number(s): [id number] cc: Nimisha Harley MUSHROOM LABORER; Jesse Gongora Report Number: [id number]: Total DLP = 596.00 mGy-cm Reason for [...] MD in OV> 09/01/2544 DD/ TD/TT: 09/01/2542 Rest Room Matron: Procedure Note Donotuseinterpreter, Image - 09/01/[address] [place] [address] [address] Scan Report Signed Patient: Les Quarles#: [id number] : 2000Acct:[id number] Age/Sex: 24 / FADM Date: 08/31/25 Loc: HO.ED Attending Dr: Ordering Physician: Jesse Gongora Date of Service: 08/31/25 Procedure(s): CT head/brain wo IV con Accession Number(s): [id number] cc: Nimisha Harley MUSHROOM LABORER; Jesse Gongora Report Number: [id number]: Total DLP = 596.00 mGy-cm Reason for [...] MD in OV> 09/01/2544 DD/ TD/TT: 09/01/2542 Rest Room Matron: [facility] External Provider IMG CT PROCEDURES Edited Result - Final * hCG, Total, Quantitative (08/31/2025 8:47 PM EST) HCG Quantitative <2 mIU/mL [facility] Comment:Weeks post LMP Appr oximate hCG(Last Menstrual Period) Range (mIU/ml)3 - 4 weeks 9 - 1304 - 5 weeks 75 - 2,6005 - 6 weeks 850 - 20,8006 - 7 weeks 4000 - 100,2007 - 12 weeks 11,500 - 289,63201 - 16 weeks 18,300 - 137,36160 - 29 weeks (2nd trimester) 1,400 - 53,52817 - 41 weeks (3rd trimester) 940 - [...] ORDERAB LES Final Result Performing Organization Address City/[facility]/ZIP Co de Phone Number [facility] [address] [place] [phone] * Magnesium (08/31/2025 8:47 PM EST) Pathologist [facility] Magnesium 2.1 1.6 - 2.6 mg/dL [facility] 08/31/2025 8:47 PM EST 08/31/2025 8:50 PM EST Generic External Data Provider LAB BLOOD ORDERAB LES Final Result Performing Organization Address [facility] Co de Phone Number [facility] [address] [place] [phone] * (ABNORMAL) Comprehensive Metabolic Panel (08/31/2025 8:47 PM EST) Pathologist [facility] Sodium 142 135 - 145 mmol/L [facility] [...] Kidney Disea se: Estimated GFR < 60 mL/min/[id number] Kidney Disease: Estimated GFR < 15 mL/min/1.73m2 [...] Final Result [facility] [address] [place] [phone] [phone] from Last 3 Months Insurance [place] [facility] MEDICAID STAND ADULT Care Teams Survey Instrument Operator Relationship Specialty Start Date End Date Nimisha Harley NP [address] [place] [address] PCP - General Family Medicine 11/03/24
--- OUTSIDE RECORDS SUMMARY | 2025-10-24 10:42 | XMS_ITS | Encounter Summary ---
Author Organization [facility] Address [address] [place] [phone] Phone Care Team Providers Care Acid Bath Mixer Name Role Phone Tangela Moreno MD Primary Care Provider Unavailabl e Encounter Details Date Type Department Care Team ([facility] Contact Info) Description 03/17/2018 Conversion [facility]counter [facility] [address] [address] Yeimi Lester MD [address] [place] [address] Social History Tobacco Use Types Packs/Day Years [...] on filedocumented in this encounter Care Teams Acid Bath Mixer Relationship Specialty Start Date End Date Tangela Moreno MD PCP - General 04/15/20 documented as of this encounter
--- OUTSIDE RECORDS SUMMARY | 2025-10-24 10:42 | XMS_ITS | Encounter Summary ---
Author Organization [employer] Address [address] [facility] 7 [place] [address] Care Team Providers Care Cranberry Sorter Name Role Phone Nimisha Harley NP Primary Care Provider [phone] Reason for Visit * Reason Onset Date Comments Med Refill 08/02/2025 Encounter Details Date Type Department Care Team ([facility] st Contact Info) Description 08/02/2025 Refill [facility] MEDICINE [address] [place] [address] Nimisha Harley NP [address] [place] [address] Moderate persistent asthma, unspecified whether complicated Social [...] documented as of this encounter Care Teams Cranberry Sorter Relationship Specialty Start Date End Date Nimisha Harley NP [address] [place] [phone] PCP - General Family Medicine 11/03/24 documented as of this encounter
--- OUTSIDE RECORDS SUMMARY | 2025-10-24 10:42 | XMS_ITS | Encounter Summary ---
Author Organization [employer] Address [address] [facility] 7t [place] [address] Care Team Providers Care Quartz Mounter Name Role Phone Nimisha Harley NP Primary Care Provider [phone] Reason for Referral * Consultation (Routine) - Closed Specialty Diagnoses / Procedures Referred By Contac t Referred To Contact Physical Therapy Diagnoses Injury of left knee, subsequent encounter Hilda Tellez MD [address] [place] [address] Phone: tel: fax: [facility] [address] [place], [place] Phone: tel: fax: Referral ID Status Reason Start Date Expiration Date V isits Requested Visits Authorized [id number] Closed Specialty Services Required 05/12/2025 05/12/2026 20 20 Encounter Details Date Type Department Care Team (Late st Contact Info) Description 05/12/2025 Orders Only [facility] MEDICINE [address] [place], [place] [phone] Hilda Tellez MD [address] [place], [place] [phone] Injury of left knee, subsequent encounter (Primary [...] documented as of this encounter Care Teams Quartz Mounter Relationship Specialty Start Date End Date Nimisha Harley NP [address] [place] [address] PCP - General Family Medicine 11/03/24 documented as of this encounter
== END 2025-10-24 10:39 | disposition home or self-care (01) ==
LOC: HO.MRI 10:38
PROVIDERS: PCP Nurse Practitioner Family; Visit Provider Nurse Practitioner Primary Care
DX: R51.9 Headache, unspecified (principal); H57.00 Unspecified anomaly of pupillary function
CPT/HCPCS: 70551